=== PATIENT | male | born 1955 | race Caucasian/White ===

== ENCOUNTER 2025-02-22 15:24 | Inpatient (IN) | payer MEDICARE, OTHER, SELFPAY ==
[2025-02-22] VITALS (18 sets, daily range): BP systolic 141–176; BP diastolic 71–123; BMI 27.3
[2025-02-22] MEDS: ATIVAN 2 MG IV ×2 (11:17→11:34)
[2025-02-22] MEDS: NSS 1000 IV (11:19)
--- NOTE | 2025-02-22 11:36 | ED.GENMED ---
History of Present Illness
General
Chief Complaint: Alcohol Problem
Source: patient
Exam Limitations: none
Time Seen by Provider: 02/22/25 11:10
Nursing documentation reviewed up to this point in time: agreed with
History of Present Illness
History of Present Illness:
Patient with history of chronic alcoholism, presents to ED secondary to uncontrollable tremor, along with ongoing right-sided neck pain x 5 days, without trauma. Patient also reports 1 week history of dark stool. Denies dizziness or weakness.
Denies chest pain. Denies shortness of breath. Patient reports nausea sensation without vomiting. Denies diarrhea. Denies trauma. Denies loss of sensation or weakness or dizziness. Denies headache.
Review of Systems
Review of Systems
Allergies reviewed?: Yes
All Other Systems: ROS reviewed and negative except as documented in HPI and ROS
Constitutional: Reports no symptoms; Denies fever
Respiratory: Reports no symptoms
Cardiac: Reports no symptoms
ABD/GI: Reports nausea and other (Dark stool); Denies abdominal pain or vomiting
: Reports no symptoms
Musculoskeletal: Reports no symptoms
Skin: Reports no symptoms
Neurological: Reports other (Tremor)
Phy Exam
Physical Exam
Physical Exam:
Physical Exam
General: mild distress, not acutely ill. afebrile
Head: nc/at. eomi
Neck: supple. no meningeal signs.
Heart: tachycardic
Lungs: no acute respiratory distress. clear bilaterally
Abdomen: normal bowel sounds. not tender.
Neuro: alert and oriented x 3. no focal neurological deficits
Skin: no rash
Psychiatric: well kept. interactive and cooperative
Extremities: no edema. no calf tenderness.
Scores
Withdrawal Assessment of Alcohol
Withdrawal Assessment Completed?: Not applicable
Course
Orders/Labs/Results
Orders:
Orders
02/22/25 11:11
IV Insert/Care/Rem.- Treatment PRN
02/22/25 11:14
Lorazepam [Ativan] 2 mg .ROUTE .STK-MED ONE
Ondansetron Injectable [Zofran] 4 mg .ROUTE .STK-MED ONE
02/22/25 11:16
Electrocardiogram (*1) Urgent
Reason for Study: QTc Monitoring
EKG- Treatment ONCE
0.9% Sodium Chloride 1000 ml [Nss] 1,000 ml IV BOLUS
Lorazepam [Ativan] 2 mg IV NOW STA
02/22/25 11:21
Type+Screen Urgent
Alcohol Urgent
Complete Blood Count/With Diff Urgent
Comprehensive Metabolic Panel Urgent
Creatine Phosphokinase Urgent
Comment: ADD ON
Lipase Urgent
Magnesium Urgent
PTT Urgent
Prothrombin Time Urgent
02/22/25 11:33
Lorazepam [Ativan] 2 mg IV NOW STA
02/22/25 12:12
Magnesium Sulfate 1 G/D5w [Magnesium Sulfate] 1 gm in 100 ml IV NOW
02/22/25 12:26
diazePAM [Valium Injection] 2 mg IV NOW STA
02/22/25 12:27
CT Cervical Spine W/o Iv Contr Urgent
Comment:
Reason For Exam: trauma w right sided neck pain
CT Head W/o Iv Contrast Urgent
Comment:
Reason For Exam: mental status change
02/22/25 13:00
0.9% Sodium Chloride 1000 ml [Nss] 1,000 ml Mvi, Adult [Multivitamin] 10 ml Thiamine Injection 100 mg IV 100 mls/hr
02/22/25 14:41
ABO2 Urgent
BBK Wristband Number:
Associate notified that ABO2 has been ordered: YULIANA
Date: 02/22/25
Time: 11:30
Superannuation Funds Manager ID: [id number]
02/22/25 Dinner
Cholesterol Lowering
At Your Request: Limited Participation
Cholesterol Lowering: Sodium, 2 Gram
02/22/25 15:04
Oxycodone/Acetaminophen [Percocet 5/325] 1 tablet PO NOW STA
diazePAM [Valium Injection] 10 mg .ROUTE .STK-MED ONE
Hemetest Stools As Directed
02/22/25 15:06
Admit/Transfer Patient As Directed
Co-Sign Provider:
Level of Care: Inpatient admission
Assign to:: IMU- Intermediate Care
Physician / Group: Ariel Swift
Diagnosis: Acute ETOH WDS, mild acute ETOH hepatitis, Hypomagnesemia
Reason for Hospitalization: Acute ETOH WDS, mild acute ETOH hepatitis, Hypomagnesemia
Expected length of stay greater than two midnights?: Yes
ELOS- Estimated Length of Stay in days: 3
I certify the patient meets the requirements for IP care: Yes
diazePAM [Valium Injection] 2 mg IV NOW STA
PRN Pain Medication Management As Directed
May give lesser potent ordered pain med per pt: Yes
preference::
Protocol:: Medication orders for pain may be administered in a
manner that supports deferring to patient preference
when the pt is:
- Requesting an ordered lesser potent pain medication.
Least to most potent pain medications are defined
as: acetaminophen < NSAID < tramadol < opioids
(morphine, oxycodone, hydromorphone).
- Requesting a lesser dose of the same medication IF
ORDERED.
- Requesting a less intrusive route of administration
if both routes are prescribed by the provider (PO <
IV).
02/22/25 15:08
Code Status As Directed
Resuscitation Status: Full Code
02/22/25 17:09
0.9% Sodium Chloride [Nss (Preservative Free)] See Protocol IV PRN PRN
Acetaminophen [Tylenol] 650 mg PO Q4HPRN PRN
FOLic ACID [Folvite] 1 mg 0.9% Sodium Chloride 50 ml [Nss] 50 ml IV DAILYPRN
Heparin 5,000 units SC Q8
Lorazepam [Ativan] 1 mg PO Q2HPRN PRN
Lorazepam [Ativan] 2 mg IV Q1HPRN PRN
Phenobarbital Sodium [Phenobarbital] 260 mg 0.9% Sodium Chloride 100 ml [Nss] 100 ml IV NOW
Thiamine Injection 200 mg IV Q8
02/22/25 17:09
Case Management Consult Once
Case Management Consult: Other
Comment: Substance abuse counseling
DIETARY IP CONSULT Routine
Reason for Consult: Nutrition support, possible refeeding guidelines
Activity As Directed
Activity Level: As Tolerated
Intake/ Output As Directed
Frequency: Per unit guidelines
MSAS SCORE As Directed
MSAS Score 0-4: Repeat MSAS every 2 hours until 0-4 for three consecutive assessments, then every 4 hours x 48
hours.
MSAS Score 5-7: For MILD withdrawl symptoms. Repeat MSAS and RASS every 2 hours
MSAS Score 8-11: For MODERATE withdrawal symptoms. Repeat MSAS and RASS every 1 hour. Consider ICU or IMU
level of care.
MSAS Score > 11: For SEVERE withdrawal symptoms. Repeat MSAS and RASS every 1 hour. Notify provider, consider
ICU level of care.
MSAS Additional Instructions: If no improvement or no decrease in score from severe to moderate within 12
hours, consult psychiatry
MSAS Notify Provider: Notify provider if patient requires more than 10 mg of Lorazepam in eight hour period.
Precautions As Directed
Type of Precautions: Other
Comment: fall
Vital Signs As Directed
Frequency: Per unit guidelines
Weight As Directed
Frequency: Once
Comment: on admission
DX Deep Vein Thrombosis Video Routine
02/22/25 17:14
Lorazepam [Ativan] 1 mg PO Q1HPRN PRN
02/22/25 17:42
B-Hydroxybutyrate Urgent
GGTP Urgent
Phosphorus Urgent
02/22/25 18:00
Allopurinol [Zyloprim] 200 mg PO QPM
02/22/25 20:19
Urinalysis Routine
Date Specimen was Collected: 02/22/25
Time Specimen was Collected: 20:12
Urine Drug Abuse Screen Routine
Date Specimen was Collected: 02/22/25
Time Specimen was Collected: 20:12
02/22/25 22:00
Docusate Sodium [Colace] 300 mg PO HS
Phenobarbital Sodium [Phenobarbital] 97.5 mg IV TID
02/23/25 03:14
Complete Blood Count/With Diff IN AM
Comprehensive Metabolic Panel IN AM
Ferritin IN AM
Iron IN AM
Magnesium IN AM
Total Iron Binding IN AM
Vitamin B12 IN AM
02/23/25 06:00
Levothyroxine [Synthroid] 25 mcg PO DAILY@0600
02/23/25 08:00
Atorvastatin [Lipitor] 20 mg PO DAILY
FOLic ACID [Folvite] 1 mg PO DAILY
Lisinopril [Zestril] 10 mg PO DAILY
magnesium oxide 400 mg PO DAILY
02/24/25 22:00
Phenobarbital [Luminal] 64.8 mg PO TID
02/25/25 20:00
Thiamine HCl [Vitamin B1] 100 mg PO BID
02/26/25 22:00
Phenobarbital [Luminal] 32.4 mg PO TID
Abnormal Lab Results
02/22/25
11:21
RBC 6.58 H 10^6/uL
(4.70-6.10)
MCV 64.6 L fL
(80.0-94.0)
MCH 19.8 L pg
(27.0-31.0)
MCHC 30.6 L g/dL
(33.0-37.0)
RDW 18.5 H %
(11.5-14.5)
Sodium 148 H mmol/L
(135-145)
Chloride 112 H mmol/L
(98-107)
Carbon Dioxide 21 L mmol/L
(22-30)
BUN 6 L mg/dl
(9-20)
Glucose 160 H mg/dl
(70-99)
Magnesium 1.3 L mg/dl
(1.6-2.3)
AST 84 H U/L
(17-59)
Alkaline Phosphatase 135 H U/L
(38-126)
02/22/25 11:21
02/22/25 11:21
Vital Signs
Initial and Last Documented VS:
Initial Vital Signs
Temp Pulse Resp BP Pulse Ox
98.0 F 128 18 171/110 98
02/22/25 10:39 02/22/25 10:39 02/22/25 10:39 02/22/25 10:39 02/22/25 10:39
Last Documented Vital Signs
Temp Pulse Resp BP Pulse Ox
97.5 F 87 24 168/90 97
02/23/25 03:09 02/23/25 11:43 02/23/25 11:43 02/23/25 11:19 02/23/25 11:43
MDM/Problems Addressed
MDM/Problems Addressed:
Patient evaluated immediately upon arrival secondary to unstable vital signs along with tremor. Patient given IV fluids along with Ativan, with mild improvement. Patient will be admitted for further evaluation and treatment.
*Pulse Oximetry
SaO2: 98
Oxygen Mode of Delivery: Room air
Patient hypoxic: no
*Critical Care Note
Total Time (30-74mins, 75-104mins- exclusive of procedures): Not Applicable
ED Attending Note
-
Portions of this chart may have been created with voice recognition software.� Occasional wrong word or��sound alike� substitutions may have occurred due to the inherent limitations of voice recognition software.
Discharge Plan
Departure
Patient Disposition: Admit
Date of Disposition: 02/22/25
Time of Disposition: 14:25
Admit to: IMU
Presentation/result/management discussed w/ accepting MD/DO: Hospitalist
Discharge Problem:
Alcohol withdrawal
Interventions
Interventions:
*Risk Screen - Suicide Last Done: 02/22/25 10:39
*General Assessment Last Done: 02/22/25 10:39
*Neglect/Abuse Screening Last Done: 02/22/25 10:39
*ED- Fall Risk Assessment Last Done: 02/22/25 16:01
*ED COVID-19 Vaccine History Last Done: 02/22/25 16:01
*Nursing Disposition Last Done: 02/22/25 17:10
QI-Mauvkw-Qtnrudacbb Assessment Last Done: 02/22/25 11:23
ED- Cardiac Assessment Last Done: 02/22/25 11:23
ED- Neurological Assessment Last Done: 02/22/25 11:23
ED-Psychological Assessment Last Done: 02/22/25 11:23
ED- Pulmonary Assessment Last Done: 02/22/25 11:23
Discharge Date and Time
Discharge Date/Time: 02/22/25 17:20
[2025-02-22 11:38] LABS: INR 1.07; PT 14.2 Sec (11.4-14.6)
[2025-02-22 11:39] LABS: APTT 29.4 Sec (23.4-35.0)
[2025-02-22 11:45] LABS: Hematocrit 42.5 % (39.0-52.0); Hemoglobin 13.0 g/dL (13.0-18.0); Mean Corp Hgb Conc. 30.6 g/dL (33.0-37.0); Mean Corpuscular Volume 64.6 fL (80.0-94.0); Nucleated Red Blood Cells % 0 % (-); Platelet Count 214 10^3/uL (130-400); Red Cell Dist. Width 18.5 % (11.5-14.5)
[2025-02-22 11:51] LABS: ALT (SGPT) 49 U/L (0-50); AST (SGOT) 84 U/L (17-59); Albumin 4.4 g/dl (3.5-5.0); Alkaline Phosphatase 135 U/L (38-126); Blood Urea Nitrogen 6 mg/dl (9-20); Calcium 8.9 mg/dl (8.4-10.2); Carbon Dioxide 21 mmol/L (22-30); Chloride 112 mmol/L (98-107); Estimated Creatinine Clearance 94 ml/min; Glucose 160 mg/dl (70-99); Lipase 76 U/L (23-300); Magnesium 1.3 mg/dl (1.6-2.3); Potassium 3.7 mmol/L (3.5-5.1); Sodium 148 mmol/L (135-145); Total Protein 7.6 g/dl (6.3-8.2); eGFR > 60.00
[2025-02-22] MEDS: MAGNESIUM SULFATE 100 IV (12:30)
[2025-02-22] MEDS: VALIUM INJECTION 2 MG IV ×2 (12:31→15:07)
[2025-02-22] MEDS: MULTIVITAMIN 1011 MG IV (13:39)
[2025-02-22] MEDS: MULTIVITAMIN 1011 ML IV (13:39)
--- NOTE | 2025-02-22 14:25 | W.PN.UPDATE ---
Update Note
Progress Note Update
This note serves as an addendum to the H&P by dietary server RODGER Bell Rosado
HPI
69 M chronic alcoholism, presents to ED
- pw o uncontrollable tremor, along with ongoing right-sided neck pain x 5 days, without trauma.
- reports 1 week history of dark stool.
- Denies dizziness or weakness.
Denies chest pain. Denies shortness of breath. P
- reports nausea sensation without vomiting.
- Denies diarrhea. Denies trauma.
- Denies loss of sensation or weakness or dizziness. Denies headache.
Denied porir HC Sz
Reviewed VS:
SelRelevant VS:
02/22/25
10:39 02/22/25
11:15
Temp 98.0 F
Pulse 128 119
Blood pressure 171/110
SaO2 98
Oxygen Mode of Delivery Room air
PE
Gen: in mild distress, tremulous , decreased attention span, slow cognitive speed
HEENT: anicteric
Neck: supple
Lungs: CTA
Cor: tachycardic
Abdomen: soft benign
ART FRAMING MANAGER: alert and oriented x 3. no focal neurological deficits, tremulous
MS: no edma , no tremors
Psych: . interactive and cooperative
Relevant Data
Relevant Data
02/22/25
11:21
WBC 7.4
Hgb 13.0
MCV 64.6 L
Plt Count 214
INR 1.07
Sodium 148 H
Chloride 112 H
Carbon Dioxide 21 L
BUN 6 L
eGFR > 60.00
Glucose 160 H
Magnesium 1.3 L
AST 84 H
ALT 49
ASSESSMENT & PLAN
Acute ETOH WDS concerning for evolving DTS
POS acute autonomic hyperarousal signs ( ST, Hypertensive, tremulous , decreased attention span, slow cognitive speed)
No prior HX Sz
- Hi risk for DTs - to start on PHB protocol
- fall precaution , Sz precaution
Associated mild acute ETOH hepatitis with reversed AST and ALT ratio
- cessation of ETOH
- trend LFts
Hypomagnesemia of chr ETOH use disorder
- s/p IV Mg 1 gm
- f/u Mg in AM
Dark stool
Microcytosis
- check Ferritin
- check HoB stool
DVT Px: SQH
Full Code:
IMU
--- NOTE | 2025-02-22 14:26 | HPS.HSE ---
Family Physician
-
Family Physician:
Chief Complaint
-
neck pain
History of Present Illness
Patient is a 69-year-old male with past medical history significant for chronic alcohol dependency, hypertension, hyperlipidemia, gout, CAD, hypothyroid and Hx prostate cancer who presented to [facility] ED for evaluation of neck pain. Patient states the
pain in his neck has been intractable for 5 days and he could not bare it anymore. He reports similar to pain in the past where he ended up needing a discectomy. He also reports that he gets 'so hammered at night,' sometimes he forgets if he takes
medications or not. He denies any falls but may not be aware if he has fallen. Patient reports drinking a half gallon of premixed cocktails per day, will drink cocktails like [place] ice tea or margaritas. Last drink yesterday 02/21/2025 in the
evening.
Medical History
Past Medical History
Past Medical History: Reports Other
Additional Past Medical History:
alcohol dependency
hypertension
hyperlipidemia
gout
CAD
hypothyroid
Hx prostate cancer
Past Surgical History: Reports Other
Additional Past Surgical History:
cardiac stent x2
prostatectomy
discectomy
Left knee surgery
Social History
Tobacco: Vaping (utilizes vape all day long )
Alcohol: Daily (drinks a 5th (or half gallon) of premixed cocktail daily (i.e. premixed [place] ice tea))
Drug: None
Living: With Family (with sister )
Employment: Retired
Family History
Family History: Unable to Obtain
Allergies / Home Medications
Allergies reflects when Allergies were last updated in [facility].
Home Medications with original date entered in [facility]
Allergy/Medication List:
Allergies
Allergy/AdvReac Type Severity Reaction Status Date / Time
No Known Allergies Allergy Unverified 02/22/25 10:39
Home Medications
allopurinol 100 mg tablet 200 mg PO QPM 02/22/25
atorvastatin 20 mg tablet (Lipitor) 20 mg PO DAILY 02/22/25
cholecalciferol (vitamin D3) 25 mcg (1,000 unit) tablet (Vitamin D3) 25 mcg PO DAILY 02/22/25
docusate sodium 100 mg capsule (Colace) 300 mg PO HS 02/22/25
folic acid 800 mcg tablet 0.8 mg PO DAILY 02/22/25
levothyroxine 25 mcg tablet (Synthroid) 25 mcg PO DAILY 02/22/25
lisinopril 10 mg tablet 10 mg PO DAILY 02/22/25
magnesium oxide 400 mg PO DAILY 02/22/25
metoprolol succinate 100 mg tablet,extended release 24 hr (Toprol XL) 100 mg PO DAILY 02/22/25
quetiapine 50 mg tablet (Seroquel) 50 mg PO HS 02/22/25
selenium 50 mcg tablet 50 mcg PO DAILY 02/22/25
verapamil 180 mg tablet,extended release 180 mg PO DAILY 02/22/25
Review of Systems
-
History Source: Patient
Musculoskeletal: Reports Other (severe neck pain )
Neurological: Reports Other (tremors )
Physical Exam
Vital Signs
Vital Signs
Temp Pulse Resp BP Pulse Ox
98.0 F 116 32 150/98 98
02/22/25 10:39 02/22/25 11:45 02/22/25 11:45 02/22/25 11:19 02/22/25 11:45
Physical Exam
General: Well Developed, Well Nourished, Sweats and Obese
HEENT: NormoCephalic, Moist mucous membranes, Atraumatic, Nose Appears Normal and Ears Appear Normal
Respiratory: Clear
Cardiac: S1/S2, Regular Rhythm and Tachycardia
Breast: Deferred by me
GI: Soft, Non Tender, Non Distended and Normal Bowel Sounds; No Organomegaly
Rectal: Deferred by Provider
Genito-urinary: Deferred by me
Musculoskeletal: No Clubbing, No Cyanosis and No Edema
Skin: IV/Catheter Site
Neuro: Awake, Alert, Nonfocal/grossly intact and Tremors
Psych: Anxious
Laboratory Results
-
02/22/25 11:21
02/22/25 11:21
Laboratory Results
PT 14.2 Sec (11.4-14.6) 02/22/25 11:21
INR 1.07 02/22/25 11:21
APTT 29.4 Sec (23.4-35.0) 02/22/25 11:21
Total Bilirubin 1.1 mg/dl (0.2-1.3) 02/22/25 11:21
AST 84 U/L (17-59) H 02/22/25 11:21
ALT 49 U/L (0-50) 02/22/25 11:21
Alkaline Phosphatase 135 U/L (38-126) H 02/22/25 11:21
Lipase 76 U/L (23-300) 02/22/25 11:21
Data Reviewed
-
CT Scan: Report Reviewed by me (C-spine: 1. 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
NARROWING. 2. Severe chronic discogenic degenerative disease and left-sided facet joint ar) and Other (Head: 1. Mild diffuse cerebral and cerebellar volume loss. 2. Mild periventricular white matter leukoaraiosis.)
Medical Tests (Nuc Med, Echo, EKG etc): Report Reviewed by me (EKG: SINUS TACHYCARDIA RIGHT BUNDLE BRANCH BLOCK LEFT POSTERIOR FASCICULAR BLOCK BIFASCICULAR BLOCK )
Lab Data: Labs Reviewed by me (Na+ 148, Mag 1.3, AST 84, ALT 49, Alk Phos 135)
Impression/Plan
-
IMPRESSION/PLAN:
#alcohol withdraw
#alcohol dependency
#hypernatremia
#hypomagnesemia
#mild acute ETOH hepatitis
Na+ 148, Mag 1.3, AST 84, ALT 49, Alk Phos 135
EKG: SINUS TACHYCARDIA
RIGHT BUNDLE BRANCH BLOCK
LEFT POSTERIOR FASCICULAR BLOCK
BIFASCICULAR BLOCK
Head CT: 1. Mild diffuse cerebral and cerebellar volume loss.
2. Mild periventricular white matter leukoaraiosis.
C-Spine CT: 1. 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
SEVERE RIGHT NEURAL FORAMINAL NARROWING.
2. Severe chronic discogenic degenerative disease and left-sided facet joint arthrosis at C4/C5.
3. 4 mm anterolisthesis of C3 on C4 secondary to severe bilateral facet joint arthrosis. SEVERE RIGHT NEURAL FORAMINAL NARROWING at C3/C4.
4. Previous anterior discectomy and fusion at C6/C7.
- Admit to IMU
- MSAS protocol
- phenobarbital taper
- B-Cares consult
- Case management consult
- educate on ETOH cessation
- trend LFTs
- replete electrolytes as indicated
- trend lytes
#neck pain
C-Spine CT: 1. 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
SEVERE RIGHT NEURAL FORAMINAL NARROWING.
2. Severe chronic discogenic degenerative disease and left-sided facet joint arthrosis at C4/C5.
3. 4 mm anterolisthesis of C3 on C4 secondary to severe bilateral facet joint arthrosis. SEVERE RIGHT NEURAL FORAMINAL NARROWING at C3/C4.
4. Previous anterior discectomy and fusion at C6/C7.
- will need follow up out patient
- pain regimen
#hypertension
patient reports use of metoprolol and verapamil no recent pharmacy fills and recent hospital d/c papers note to stop medication
- continue lisinopril
- monitor need for additional noted medications
#CAD
#hyperlipidemia
s/p cardiac stent x2
- continue atorvastatin
#gout
- continue allopurinol
#hypomagnesemia
- continue magnesium oxide
#hypothyroid
- continue levothyroxine
#Hx prostate cancer
s/p prostatectomy and radiation
Code status: full code
DVT prophylaxis: heparin sq
--- NOTE | 2025-02-22 14:53 | CM ---
Patient seen at bedside in ED. Patient stated that he lives with his sister. Patient lives in a 2 story home with 12 steps to bedroom. Patient PCP is Dr. Rufus Ceja - aged 89 and per patient he is still practicing. Patient stated that he uses
the [facility] in [place] and that he is not working or driving at this time. Patient wanted to talk to [facility] about alcohol treatment but did agree to talk to [facility]. Patient is for admission to at this time per physician. CM will
continue to follow for discharge planning needs.
Plan; [facility] to assess pending medical treatment plan
[2025-02-22] MEDS: PERCOCET 5/325 1 TABLET PO (15:13)
[2025-02-22] MEDS: THIAMINE INJECTION 200 MG IV ×2 (17:27→23:26)
[2025-02-22] MEDS: HEPARIN 5000 UNITS SC ×2 (17:27→23:26)
[2025-02-22] MEDS: ZYLOPRIM 200 MG PO (17:27)
[2025-02-22] MEDS: ATIVAN 1 MG PO ×3 (17:28→23:26)
[2025-02-22] MEDS: PHENOBARBITAL 104 MG IV (17:46)
--- NOTE | 2025-02-22 17:55 | PTCARENOTE ---
Patient arrived to IMU from ED. AOx3. Patient very anxious and has B/L hand tremors. MSAS completed per order and PO ativan given per MSAS score of 5. NSR with first degree and BBB on monitor. On RA with SpO2 greater than 92%. IVF running per order.
Bed alarm on and audible. Call kapoor within reach, bed in lowest position, and bed of wheels locked.
[2025-02-22 18:23] LABS: GGTP 96 U/L (15-73)
[2025-02-22] MEDS: NICODERM TRANSDERMAL 21 MG TRANSDERM (18:27)
[2025-02-22 20:31] LABS: Urine Character Clear (Clear)
[2025-02-22 20:36] LABS: Urine Squamous Cell 0-2 /LPF (Few)
[2025-02-22 20:37] LABS: Urine Red Blood Cell 0-2 /HPF (0-2)
[2025-02-22] MEDS: REMOVE NICOTINE PATCH 1 PATCH REMOVE (21:06)
[2025-02-22] MEDS: PHENOBARBITAL 97.5 MG IV (21:07)
[2025-02-22] MEDS: COLACE 300 MG PO (21:07)
--- NOTE | 2025-02-22 23:07 | PTCARENOTE ---
Assumed care of pt from daysarft GUADALUPE. inessaox3. NSR with BBB and first degree on monitor. 98% on RA. MSAS ongoing (see worklist) and pt medicated per protocol (see MAR). Vital signs and assessment as documented. Pt currently sleeping in bed with call
kapoor in reach and bed alarm on.
[2025-02-23] VITALS (19 sets, daily range): BP systolic 142–184; BP diastolic 74–130
[2025-02-23] MEDS: NSS 1000 IV ×3 (00:11→13:50)
[2025-02-23] MEDS: NSS (PRESERVATIVE FREE) 1 ML IV ×2 (00:12→03:00)
[2025-02-23] MEDS: ATIVAN 2 MG IV ×2 (00:12→03:00)
[2025-02-23] MEDS: ZOFRAN 4 MG IV (03:51)
[2025-02-23 04:02] LABS: Hematocrit 33.6 % (39.0-52.0); Hemoglobin 10.6 g/dL (13.0-18.0); Mean Corp Hgb Conc. 31.5 g/dL (33.0-37.0); Mean Corpuscular Volume 63.4 fL (80.0-94.0); Nucleated Red Blood Cells % 0.5 % (-); Platelet Count 171 10^3/uL (130-400); Red Cell Dist. Width 17.0 % (11.5-14.5)
[2025-02-23 04:08] LABS: ALT (SGPT) 36 U/L (0-50); AST (SGOT) 55 U/L (17-59); Albumin 3.6 g/dl (3.5-5.0); Alkaline Phosphatase 118 U/L (38-126); Blood Urea Nitrogen 10 mg/dl (9-20); Calcium 8.1 mg/dl (8.4-10.2); Carbon Dioxide 21 mmol/L (22-30); Chloride 113 mmol/L (98-107); Estimated Creatinine Clearance > 125 ml/min; Glucose 82 mg/dl (70-99); Iron 312 ug/dl (49-181); Magnesium 1.4 mg/dl (1.6-2.3); Potassium 3.9 mmol/L (3.5-5.1); Sodium 141 mmol/L (135-145); Total Protein 6.4 g/dl (6.3-8.2); eGFR > 60.00
[2025-02-23 04:20] LABS: Total Iron Binding Capacity 311 ug/dl (261-462)
[2025-02-23 04:41] LABS: Ferritin 45.9 ng/ml (17.9-464.0)
[2025-02-23 04:56] LABS: Vitamin B12 411 pg/ml (239-931)
[2025-02-23] MEDS: MAGNESIUM SULFATE 102 GRAMS IV (05:23)
[2025-02-23] MEDS: SYNTHROID 25 MCG PO (05:24)
[2025-02-23] MEDS: ATIVAN 1 MG PO ×3 (05:31→23:32)
--- NOTE | 2025-02-23 05:46 | PTCARENOTE ---
Pt c/o nausea. FRANCO Junior notified and Rx received for Zofran (see MAR). Pt's morning Mg 1.4 and FRANCO made aware, Mg rider currently infusing (see MAR).
[2025-02-23] MEDS: PERCOCET 5/325 1 TABLET PO (06:35)
--- NOTE | 2025-02-23 06:44 | PTCARENOTE ---
Pt c/o 04/12 pain in his neck. Notified FRANCO Junior and received one time Rx for Percocet (see MAR).
[2025-02-23] MEDS: PHENOBARBITAL 97.5 MG IV ×3 (07:46→21:01)
[2025-02-23] MEDS: LIPITOR 20 MG PO (07:46)
[2025-02-23] MEDS: FOLVITE 1 MG PO (07:47)
[2025-02-23] MEDS: HEPARIN 5000 UNITS SC ×3 (07:49→23:32)
[2025-02-23] MEDS: ZESTRIL 10 MG PO (07:52)
[2025-02-23] MEDS: MAG-TAB SR 84 MG PO (07:52)
[2025-02-23] MEDS: THIAMINE INJECTION 200 MG IV ×3 (07:53→23:32)
[2025-02-23] MEDS: NICODERM TRANSDERMAL 21 MG TRANSDERM (08:23)
--- NOTE | 2025-02-23 09:13 | W.PN.HOSP.TC ---
Today's Communication/Plan
-
PPI
Antiemetics
Follow H&H closely
Repeat heme test stools
GI consult
Chest x-ray, on as needed nebulizers
Pain medication for the neck pain
Continued alcohol withdrawal protocol
Assessment / Plan
Assessment / Plan
#Nausea with black stools
Rule out GI bleed
Patient with ongoing alcohol abuse which increases the risk of bleeding
Heme negative x 1 but has got microcytosis. His iron studies are difficult to interpret because he is got hemochromatosis and gets phlebotomy.
With a drop in H&H I would evaluate for GI bleed. Consult GI.
Continue with PPI and antiemetics. Follow H&H closely
#Neck pain
Severe in nature
No radiculopathy
History of prior cervical disc's disease and surgery
Patient had fall a week ago
CT cervical spine shows severe DJD at C5-C6 with osteophyte causing moderate spinal compression and moderate central canal stenosis and severe right neural foraminal narrowing at C5/C6 and C3/C4 prior anterior discectomy and fusion at C6/C7 noted
Continue with the pain regimen and consider Ortho input/epidural injections for intractable pain.
#Alcohol use disorder
No prior history of alcohol withdrawal
Currently without hallucinations. No overt sympathetic activity-hyperarousal, sweating and tachycardia. Elevated blood pressure as his current known history of hypertension
His tremors to me sound more benign essential tremor rather than withdrawal.
Continue with alcohol withdrawal protocol including phenobarbital as the risk for seizures is high
Patient is amenable for alcohol withdrawal resources. Case management to involve B cares.
#Tremors-worse when he is tries to reach out for things or grab things. Noted on an outstretched hands against when they are held at the gravity. No neck tremor or lower extremity tremors. Admitting CT head shows no evidence of acute intracranial
finding
#Active wheezing-without short of breath or cough. Patient is an ex-smoker but currently actively vapes. Does not use inhalers at home. Uses as needed nebulizers. Obtain a chest x-ray. He has a history of pneumonia 2 months ago and was supposed
to get a follow-up chest imaging
#Hypertension-continue the home medication and follow
#Hemochromatosis-ferritin is at 45 and percent saturation is very high at 100%. Patient to follow-up with primary combat information center officer
#CAD status post prior coronary stenting-continue with his aspirin and statins
#Hypothyroidism-continue Synthroid
Full code
Total time spent on today's encounter was 52 minutes which included time spent in counseling the patient/family regarding diagnosis and treatment plan as listed above, goals of care, and symptom management. Case was discussed with nursing staff,
specialists, and care coordinators/case management. All labs and imaging personally reviewed by me. Remainder the time spent in detailed review of previous records, lab data, imaging, and other medical provider documentation.
Anticipated Discharge: > 48 hours
Subjective/Interval History
-
Date of Service: February 23, 2025
Today's complaint is constant right-sided posterior neck pain.
In the past he had a cervical discectomy and surgery.
A week ago he found himself on the floor and he does not know how it happened.
He does drink 1/5 of vodka or similar spirits every day. He says last drink was yesterday.
He says if he does not have alcohol by 5 PM he will start to get shakes and tremors. No prior history of alcohol withdrawal seizures. Longstanding alcohol use.
The neck pain is localized with no radiation to the arms.
His other complaint was shaking/tremors. He says his onset of tremor is almost more than a year. It is worse if he tries to reach for something. Denies any balance issues. When he drinks alcohol is tremors get better. Denies ever diagnosed with
benign essential tremors. Denies any strokes.
His other complaint is nausea with no abdominal pain or vomiting but has been noticing dark stools for a week. Denies prior history of gastritis or peptic ulcer disease. Denies prior history of liver disease.
All his doctors are at [facility] [place] and he does not want to go there because he says the care is poor. His PCP is getting retired next week he sees a pollution control engineer for stents in the heart. He sees a combat information center officer for hemochromatosis. He sees
his urologist for prostate cancer.
Objective Data
-
Labs:
Laboratory Results
02/23/25
03:14
WBC 4.2 L
Hgb 10.6 L
Hct 33.6 L
Plt Count 171 D
Sodium 141
Potassium 3.9
Chloride 113 H
Carbon Dioxide 21 L
BUN 10
Creatinine 0.6 L
Glucose 82
Calcium 8.1 L
Total Bilirubin 1.9 H
AST 55
ALT 36
Alkaline Phosphatase 118
Vital Signs:
Vital Signs
Temp Pulse Resp BP Pulse Ox
97.5 F 71 16 157/100 98
02/23/25 03:09 02/23/25 08:00 02/23/25 08:00 02/23/25 08:00 02/23/25 08:14
I&O
02/22/25 02/23/25 02/24/25
06:59 06:59 06:59
Intake Total 2744 / 2744
Output Total 200 / 200
Balance 2544 / 2544
Physical Exam
-
General: Comfortable
HEENT: Moist Mucous Membranes
Respiratory: Wheezes and Non Labored Respirations; Negative Accessory Resp Muscle Use
Cardiac: Regular Rhythm and S1/S2; Negative Tachycardic
GI: Soft and Nontender
Neuro: AO x 3, No Motor Deficits and Tremors (Intention)
Psych: Calm; Negative Confused
Data Reviewed
-
Labs: Labs Reviewed by me
[2025-02-23] MEDS: NSS (PRESERVATIVE FREE) 10 ML IV ×2 (09:52→21:01)
[2025-02-23] MEDS: ROXICODONE 5 MG PO ×4 (09:52→23:36)
[2025-02-23] MEDS: PROTONIX IV 40 MG IV ×2 (09:52→21:01)
[2025-02-23 10:22] LABS: Hematocrit 38.4 % (39.0-52.0); Hemoglobin 12.0 g/dL (13.0-18.0)
--- NOTE | 2025-02-23 10:38 | CM ---
Received consults for substance abuse counselling.
Spoke with Bernadette at [facility]- [facility]round [facility] Pt medicated for nausea vomitting.
Medicated for pain with for neck pain .
Maintained on withdrawal precaution.
Ativan prn.
GI consulted .
PLAN On going with [facility]
[2025-02-23] MEDS: TOPROL XL 100 MG PO (11:19)
[2025-02-23] MEDS: DUONEB 3 ML INH (11:49)
--- NOTE | 2025-02-23 12:59 | CON.GI ---
Addendum entered and electronically signed by Roger Lincoln MD 02/23/25 14:00:
I saw and examined the patient.
The ASSISTANT COMMUNITY DIRECTOR's note was reviewed and I agree with the note.
Impression:
History of dark stools at home . FOBT x 2 negative . repeat Hb 12
ETOH abuse (1/5 of vodka or rum daily up to half gallon daily)
Neck pain
History of hemochromatosis, follows with [facility]
History of ulcerative colitis
-->diagnosed at age 13, on medication (unsure what it was) up until the age of his mid 30s. Was told it was 'burned out'.
--> Last colonoscopy 5 years ago with [facility], follows with them routinely.
--> Hemorrhoidectomy with [facility]
plan
No acute GI intervention
Recommend follow-up with his outpatient GI on discharge
Advised on alcohol abstinence
continue PPI
Also advised on follow-up with hematology for hemochromatosis
No further recommendation. Will sign off. Please call us back if any questions
Original Note:
Consultation
-
Date/Time Consultation Requested: 02/23/25 0928
Date/Time Consultation Performed: 02/23/25 1230
Requesting Provider: Dr. Macedo
Performing Provider: Dr. Lincoln/FRANCO Smith
Reason for Consultation: eval for GI bleed
Medical History
Chief Complaint / HPI
Chief Complaint: tremor and right sided neck pain
History of Present Illness:
69-year-old male with past medical history of chronic alcohol abuse (1/5 of vodka or rum a day last use 6 PM 02/21/2025), hypertension, hyperlipidemia, gout, CAD, hypothyroidism, per patient recent admission September and November for pneumonia,
hemochromatosis, prostate cancer status post prostatectomy and radiation, history of ulcerative colitis (diagnosed at the age of 13 and was on medications to his 30s (states this is 'burned out', followed by [facility] with last colonoscopy
approximately 5 years ago and hemorrhoidectomy with colorectal surgery at [facility]) who presents to the emergency room yesterday with neck pain for 5 days. The patient also reports having dark stools. We are asked to evaluate for his
history of dark stools and to rule out GI bleed. At the present time the patient is having green stools. He is OB negative x 2. He states that last week he was having darker stools. He denies any use of iron or Pepto-Bismol. He denies any
heartburn, reflux. He does have some dry heaves while here. He did have an episode of vomiting at home last week. He denies any hematemesis or coffee grounds. He denies any abdominal pain. He denies any nausea, vomiting, hematochezia, dysphagia
or odynophagia. No early satiety or unintended weight loss. He usually follows with [facility]. He states that he was getting phlebotomy every couple weeks however he was hospitalized for 'pneumonia'. In the winter/spring. He has not
had phlebotomy since approximately . The patient vapes. He continuously drinks alcohol. He has no known history of peptic ulcer disease that he is aware of. He does not take any PPI, H2 deon or Tums. He denies any aspirin,
ibuprofen, Motrin or NSAID use. He does use allopurinol for gout. He states he uses Oxycodone for his neck pain. He has an uncle who has a history of prostate cancer. He denies any family history of gastrointestinal malignancy or IBD other than
himself. States he has a history of ulcerative colitis diagnosed at the age of 13 was on medications does not recall which until the age of mid 30s. Was then told his ulcerative colitis was 'burned-out'. No longer required medications. Bowel
movements are usually normal. Had hemorrhoids. Was sent to [facility] for hemorrhoidectomy. Has a history of prostate cancer status post prostatectomy and radiation. Patient was never told that he had radiation proctitis and has
never required treatment for such.
Past Medical History
Past Medical History: Other (Chronic alcohol abuse, hypertension, hyperlipidemia, gout, CAD, hypothyroidism, 'UC, burned out', prostate cancer, hemochromatosis, pneumonia)
Past Surgical History: Other (Prostatectomy, cardiac stents, discectomy, left knee surgery)
Social History
Tobacco: Vaping
Alcohol: Daily (Drinks at least fifth of vodka/rum or up to half gallon of hard liquor daily)
Drug: None
Personal: Single
Living: With Family
Employment: Retired
Family History
Family History: Other (Uncle with history of pancreatic cancer, no family history of colon cancer or gastric cancer, no other family history of IBD)
Allergies / Home Medications
Allergy/AdvReac Type Severity Reaction Status Date / Time
No Known Allergies Allergy Unverified 02/22/25 10:39
�Medication �Instructions �Recorded
allopurinol 100 mg tablet 200 mg PO QPM Gout 02/22/25
atorvastatin 20 mg tablet (Lipitor) 20 mg PO DAILY High Cholesterol 02/22/25
cholecalciferol (vitamin D3) 25 25 mcg PO DAILY Supplement 02/22/25
mcg (1,000 unit) tablet (Vitamin
D3)
docusate sodium 100 mg capsule 300 mg PO HS Constipation 02/22/25
(Colace)
folic acid 800 mcg tablet 0.8 mg PO DAILY Supplement 02/22/25
levothyroxine 25 mcg tablet 25 mcg PO DAILY Thyroid 02/22/25
(Synthroid)
lisinopril 10 mg tablet 10 mg PO DAILY Blood Pressure 02/22/25
magnesium oxide 400 mg PO DAILY Supplement 02/22/25
metoprolol succinate 100 mg 100 mg PO DAILY 02/22/25
tablet,extended release 24 hr
(Toprol XL)
quetiapine 50 mg tablet (Seroquel) 50 mg PO HS Mental Health/Anxiety 02/22/25
selenium 50 mcg tablet 50 mcg PO DAILY Supplement 02/22/25
verapamil 180 mg tablet,extended 180 mg PO DAILY 02/22/25
release
selenium 200 mcg tablet 200 mcg PO DAILY 02/23/25
Review of Systems
-
All other systems: A 12 pt ROS was Negative except as stated above in HPI
Vital Signs
Temp Pulse Resp BP Pulse Ox
97.5 F 87 24 168/90 97
02/23/25 03:09 02/23/25 11:43 02/23/25 11:43 02/23/25 11:19 02/23/25 11:43
Physical Exam
Exam
General: Other (Tremulous)
HEENT: Anicteric
Respiratory: Clear
Cardiac: Regular Rhythm
GI: Soft, Non Tender, Non Distended and Normal Bowel Sounds
Skin: Warm and Dry
Neuro: AO x 3
Psych: Calm
Results
WBC 4.2 10^3/uL (4.8-10.8) L 02/23/25 03:14
Hgb 12.0 g/dL (13.0-18.0) L 02/23/25 10:08
Hct 38.4 % (39.0-52.0) L 02/23/25 10:08
MCV 63.4 fL (80.0-94.0) L 02/23/25 03:14
Plt Count 171 10^3/uL (130-400) D 02/23/25 03:14
Absolute Neuts (auto) 2.4 10^3/uL (1.4-6.5) 02/23/25 03:14
PT 14.2 Sec (11.4-14.6) 02/22/25 11:21
INR 1.07 02/22/25 11:21
APTT 29.4 Sec (23.4-35.0) 02/22/25 11:21
Sodium 141 mmol/L (135-145) 02/23/25 03:14
Potassium 3.9 mmol/L (3.5-5.1) 02/23/25 03:14
Chloride 113 mmol/L (98-107) H 02/23/25 03:14
Carbon Dioxide 21 mmol/L (22-30) L 02/23/25 03:14
BUN 10 mg/dl (9-20) 02/23/25 03:14
Creatinine 0.6 mg/dL (0.7-1.3) L 02/23/25 03:14
Calcium 8.1 mg/dl (8.4-10.2) L 02/23/25 03:14
Total Bilirubin 1.9 mg/dl (0.2-1.3) H 02/23/25 03:14
AST 55 U/L (17-59) 02/23/25 03:14
ALT 36 U/L (0-50) 02/23/25 03:14
Alkaline Phosphatase 118 U/L (38-126) 02/23/25 03:14
Lipase 76 U/L (23-300) 02/22/25 11:21
Diagnostic Image Results:
CT head:
IMPRESSION:
1. Mild diffuse cerebral and cerebellar volume loss.
2. Mild periventricular white matter leukoaraiosis
CT cervical spine:
IMPRESSION:
1. SEVERE DISCOGENIC DEGENERATIVE DISEASE at C5/C6 with a large disc-osteophyte complex causing moderate spinal cord compression, moderate central canal stenosis, and SEVERE RIGHT NEURAL FORAMINAL NARROWING.
2. Severe chronic discogenic degenerative disease and left-sided facet joint arthrosis at C4/C5.
3. 4 mm anterolisthesis of C3 on C4 secondary to severe bilateral facet joint arthrosis. SEVERE RIGHT NEURAL FORAMINAL NARROWING at C3/C4.
4. Previous anterior discectomy and fusion at C6/C7
Prior GI Procedures:
EGD: Never had
Colonoscopy: Per patient approximately 5 years ago ([facility]) per patient 'normal'. States he has a history of ulcerative colitis diagnosed at the age of 13 was on medications does not recall which until the age of mid 30s. Was then told his
ulcerative colitis was 'burned-out'. No longer required medications. Bowel movements are usually normal. Had hemorrhoids. Was sent to [facility] for hemorrhoidectomy. Has a history of prostate cancer status post prostatectomy
and radiation. Patient was never told that he had radiation proctitis and has never required treatment for such.
--> No records available to us.
Assessment / Plan
-
69-year-old male with past medical history of chronic alcohol abuse (1/5 of vodka or rum a day last use 6 PM 02/21/2025), hypertension, hyperlipidemia, gout, CAD, hypothyroidism, per patient recent admission September and November for pneumonia,
hemochromatosis, prostate cancer status post prostatectomy and radiation, history of ulcerative colitis (diagnosed at the age of 13 and was on medications to his 30s (states this is 'burned out', followed by [facility] with last colonoscopy
approximately 5 years ago and hemorrhoidectomy with colorectal surgery at [facility]) who presents to the emergency room yesterday with neck pain for 5 days. The patient also reports having dark stools. We are asked to evaluate for his
history of dark stools and to rule out GI bleed. At the present time the patient is having green stools. He is OB negative x 2. He states that last week he was having darker stools. He denies any use of iron or Pepto-Bismol. He denies any
heartburn, reflux. He does have some dry heaves while here. He did have an episode of vomiting at home last week. He denies any hematemesis or coffee grounds. He denies any abdominal pain. He denies any nausea, vomiting, hematochezia, dysphagia
or odynophagia. No early satiety or unintended weight loss. The patient vapes. He continuously drinks alcohol. He has no known history of peptic ulcer disease that he is aware of. He does not take any PPI, H2 deon or Tums. He denies any
aspirin, ibuprofen, Motrin or NSAID use. He does use allopurinol for gout. He states he uses Oxycodone for his neck pain. He has an uncle who has a history of prostate cancer. He denies any family history of gastrointestinal malignancy or IBD
other than himself. States he has a history of ulcerative colitis diagnosed at the age of 13 was on medications does not recall which until the age of mid 30s. Was then told his ulcerative colitis was 'burned-out'. No longer required medications.
Bowel movements are usually normal. Had hemorrhoids. Was sent to [facility] for hemorrhoidectomy. Has a history of prostate cancer status post prostatectomy and radiation. Patient was never told that he had radiation proctitis
and has never required treatment for such. WBC 4.2, hemoglobin 12.0, hematocrit 38.4, MCV 63.4, MCH 20.0, platelets 171, sodium 141, potassium 3.9, BUN 10, creatinine 0.6, glucose 82, iron 312, TIBC 311, percent saturation 100, ferritin 45.9, B12
411, total bilirubin 1.9, AST 55, ALT 36, alk phos 118. Stool OB negative x 2. Tox screen positive for oxycodone, barbiturates, tricyclics, benzodiazepines. EtOH 33.
Impression:
History of dark stools at home, green stools here OB negative x 2 (2 separate bowel movements)
Significant alcohol abuse (1/5 of vodka or rum daily up to half gallon daily)
Neck pain
History of hemochromatosis, follows with [facility]
History of ulcerative colitis
-->diagnosed at age 13, on medication (unsure what it was) up until the age of his mid 30s. Was told it was 'burned out'.
--> Last colonoscopy 5 years ago with [facility], follows with them routinely.
--> Hemorrhoidectomy with [facility]
Plan:
- No signs of GI bleeding at present time, OB negative stool x 2
- Recommend alcohol cessation
- Can follow-up with primary GI ([facility])
- If with any other GI complaints please call back.
- Follow-up with hematology as outpatient.
- Can continue pantoprazole for GI prophylaxis given severe ETOH use.
-
-
Thank you for consultation and allowing me to participate in the patient's care. Please call the information receptionist GI physician during the after hours with any questions or concerns.
[2025-02-23] MEDS: ZYLOPRIM 200 MG PO (17:26)
[2025-02-23 18:08] LABS: Hematocrit 32.7 % (39.0-52.0); Hemoglobin 10.5 g/dL (13.0-18.0)
--- NOTE | 2025-02-23 18:13 | PTCARENOTE ---
Patients MSAS has been <4 overall this shift. Patient has been compliant with plan of care. Complaining of neck pain treated with Oxycodone as per doctors orders. Patient has brown/ green loose stool, heme test negative. Blood pressure elevated
180/100, discussed with Dr. Macedo and new orders obtained.
[2025-02-23] MEDS: CALAN EXTENDED RELEASE 180 MG PO (18:32)
[2025-02-23] MEDS: MELATONIN 5 MG PO ×2 (21:01)
[2025-02-23] MEDS: COLACE 300 MG PO (21:01)
[2025-02-23] MEDS: REMOVE LIDOCAINE PATCH 1 PATCH REMOVE (21:02)
[2025-02-23] MEDS: REMOVE NICOTINE PATCH 1 PATCH REMOVE (21:10)
--- NOTE | 2025-02-23 22:48 | PTCARENOTE ---
received patient from previous RN. Patient is AAOx3 with tremors in both hands. Patient attempted to get OOB a few times so far, bed alarm on. Educated patient to use call kapoor for assistance. Patient using bedside commode with assistance. MSAS
protocol. Patient on room air. call kapoor in reach. assessment and vital signs as documented.
[2025-02-24] VITALS (18 sets, daily range): BP systolic 117–172; BP diastolic 74–102
[2025-02-24] MEDS: ATIVAN 1 MG PO ×2 (03:00→21:53)
[2025-02-24 03:18] LABS: Hematocrit 34.6 % (39.0-52.0); Hemoglobin 10.8 g/dL (13.0-18.0); Mean Corp Hgb Conc. 31.2 g/dL (33.0-37.0); Mean Corpuscular Volume 63.3 fL (80.0-94.0); Platelet Count 136 10^3/uL (130-400); Red Cell Dist. Width 17.2 % (11.5-14.5)
[2025-02-24 03:38] LABS: ALT (SGPT) 31 U/L (0-50); AST (SGOT) 38 U/L (17-59); Albumin 3.7 g/dl (3.5-5.0); Alkaline Phosphatase 125 U/L (38-126); Blood Urea Nitrogen 8 mg/dl (9-20); Calcium 8.6 mg/dl (8.4-10.2); Carbon Dioxide 24 mmol/L (22-30); Chloride 110 mmol/L (98-107); Estimated Creatinine Clearance > 125 ml/min; Glucose 93 mg/dl (70-99); Potassium 4.0 mmol/L (3.5-5.1); Sodium 137 mmol/L (135-145); Total Protein 6.5 g/dl (6.3-8.2); eGFR > 60.00
[2025-02-24] MEDS: ROXICODONE 5 MG PO ×2 (03:52→07:56)
[2025-02-24] MEDS: SYNTHROID 25 MCG PO (03:52)
--- NOTE | 2025-02-24 04:51 | PTCARENOTE ---
patient repeatedly made attempts to get out of bed to walk around. Patient very unsteady on feet requiring 2-3 person assist. Patient hallucinating in room saying there is 'demons coming to get him'. Patient remained AAO3. Patient restless and can
be agitated. Patient using urinal frequently and urinated on floor once for this RN.
[2025-02-24] MEDS: ATIVAN 1 MG IV ×5 (05:22→13:11)
[2025-02-24] MEDS: NICODERM TRANSDERMAL 21 MG TRANSDERM (07:52)
[2025-02-24] MEDS: PROTONIX IV 40 MG IV ×2 (07:54→19:35)
[2025-02-24] MEDS: NSS (PRESERVATIVE FREE) 0.5 ML IV (07:54)
[2025-02-24] MEDS: THIAMINE INJECTION 200 MG IV ×3 (07:54→23:20)
[2025-02-24] MEDS: NSS (PRESERVATIVE FREE) 10 ML IV ×2 (07:54→19:34)
[2025-02-24] MEDS: ZESTRIL 10 MG PO (07:55)
[2025-02-24] MEDS: HEPARIN 5000 UNITS SC ×3 (07:55→23:20)
[2025-02-24] MEDS: PHENOBARBITAL 97.5 MG IV ×3 (07:55→21:23)
[2025-02-24] MEDS: LIPITOR 20 MG PO (07:56)
[2025-02-24] MEDS: CALAN EXTENDED RELEASE 180 MG PO (07:56)
[2025-02-24] MEDS: MAG-TAB SR 84 MG PO (07:56)
[2025-02-24] MEDS: TOPROL XL 100 MG PO (07:56)
[2025-02-24] MEDS: FOLVITE 1 MG PO (07:56)
[2025-02-24] MEDS: MORPHINE SULFATE 2 MG IV (10:33)
--- NOTE | 2025-02-24 11:02 | PTCARENOTE ---
Pt's assessment as documented. Extremely agitated. Pt very impulsive but able to be re-directed at this time. MSAS scores 10 and above, see intervention. Medicated with PRN Ativan as ordered. Pt also c/o of severe back pain, medicated with
Oxycodone and Morphine, see MAR. Bed alarm and 1:[address] for safety.
--- NOTE | 2025-02-24 13:37 | W.PN.HOSP.TC ---
Today's Communication/Plan
-
Transferred to ICU for Precedex and alcohol withdrawal management.
Assessment / Plan
Assessment / Plan
#Nausea with black stools
No evidence of active GI bleed. Heme test negative twice. H&H shows anemia but stable.
He has microcytosis. His iron studies are difficult to interpret because he is got hemochromatosis and gets phlebotomy.
Appreciate GI input.
Continue with PPI and antiemetics. Follow H&H closely
#Neck pain
Severe in nature
No radiculopathy
History of prior cervical disc's disease and surgery
Patient had fall a week ago
CT cervical spine shows severe DJD at C5-C6 with osteophyte causing moderate spinal compression and moderate central canal stenosis and severe right neural foraminal narrowing at C5/C6 and C3/C4 prior anterior discectomy and fusion at C6/C7 noted
Continue with the pain regimen and consider Ortho input/epidural injections for intractable pain.
#Alcohol use disorder
No prior history of alcohol withdrawal
Today he is in full-blown alcohol withdrawal symptoms including confusion, hallucinations and agitation. His symptoms are progressing on Ativan and phenobarb. Will transfer to ICU for Precedex.
His tremors to me sound more benign essential tremor rather than withdrawal.
Patient was amenable for alcohol withdrawal resources. Case management to involve [facility].
#Tremors-worse when he is tries to reach out for things or grab things. Noted on an outstretched hands against when they are held at the gravity. No neck tremor or lower extremity tremors. Admitting CT head shows no evidence of acute intracranial
finding
#Active wheezing-without short of breath or cough. Patient is an ex-smoker but currently actively vapes. Does not use inhalers at home. Uses as needed nebulizers. Obtain a chest c-sob-lduelwm. He has a history of pneumonia 2 months ago and was
supposed to get a follow-up chest imaging
#Hypertension-continue the home medication and follow
#Hemochromatosis-ferritin is at 45 and percent saturation is very high at 100%. Patient to follow-up with primary crabbing machine operator
#CAD status post prior coronary stenting-continue with his aspirin and statins
#Hypothyroidism-continue Synthroid
Full code
Discussed with RN
Discussed with ICU team
Total time spent on today's encounter was 52 minutes which included time spent in counseling the patient/family regarding diagnosis and treatment plan as listed above, goals of care, and symptom management. Case was discussed with nursing staff,
specialists, and care coordinators/case management. All labs and imaging personally reviewed by me. Remainder the time spent in detailed review of previous records, lab data, imaging, and other medical provider documentation.
Anticipated Discharge: > 48 hours
Subjective/Interval History
-
Date of Service: February 24, 2025
Increasing agitation today. He is also having hallucination. Since midnight he used 8 mg of Ativan. He is also on phenobarb.
When I arrived patient is anxious and constantly trying to get out of bed. Redirectable but poor attention span. He ultimately forced himself out of bed and we could not hold him down. Code purple was called.
He seems to have recognized me. He knew he is in the hospital but got confused to [place]. He was much clearer yesterday as he had told me that he does not like [place] that is why he came to [facility].
Objective Data
-
Labs:
Laboratory Results
02/24/25 02/24/25 02/24/25
02:45 02:45 02:45
WBC 5.7
Hgb Cancelled 10.8 L
Hct Cancelled 34.6 L
Plt Count 136 D
Sodium 137
Potassium 4.0
Chloride 110 H
Carbon Dioxide 24
BUN 8 L
Creatinine 0.6 L
Glucose 93
Calcium 8.6
Total Bilirubin 2.1 H
AST 38
ALT 31
Alkaline Phosphatase 125
Vital Signs:
Vital Signs
Temp Pulse Resp BP Pulse Ox
97.7 F 61 24 162/85 94
02/24/25 11:51 02/24/25 12:00 02/24/25 12:00 02/24/25 12:00 02/24/25 12:50
I&O
02/23/25 02/24/25 02/25/25
06:59 06:59 06:59
Intake Total 2744 / 2744 2119
Output Total 200 / 200 200 / 200 350 / 350
Balance 2544 / 2544 1920 / 1920 -350 / -350
Review of Systems
-
Unable to obtain full review of systems at this time due to: Other (Due to cognitive impairment)
Physical Exam
-
General: Negative Comfortable
Respiratory: Non Labored Respirations; Negative Accessory Resp Muscle Use
Cardiac: Regular Rhythm and S1/S2; Negative Tachycardic
GI: Soft
Neuro: Awake, Alert and Oriented (Self only); Negative Tremors (No tremors currently)
Psych: Confused and Agitated
Data Reviewed
-
Labs: Labs Reviewed by me
[2025-02-24] MEDS: PRECEDEX 100 IV ×2 (13:47→19:34)
--- NOTE | 2025-02-24 14:00 | PTCARENOTE ---
Received pt post code purple. He is in the bed, MSAS 9. Precedex @ 0.04mcg/kg/hr titrated per protocol. He opened his eyes asking what happened and where he was. He was informed that he was hallucinating and was no longer cooperative and escalated
and became agitated. He stated he never went throgh alcohol withdrawal before. He was informed he would stay here for closer monitoring of his symptoms of withdrawal. He nodded his head in understanding. Lungs CTA. Large round rotund abdomen. He was
incontinent of bladder. Complete CHG bath provided. 1:1 observer remained at the bedside. Safe environment maintained.
--- NOTE | 2025-02-24 14:01 | PTCARENOTE ---
This RN and 1:1 at bedside with MD. Pt increasingly agitated and uncooperative. Climbing OOB and attempting to go into halls. Code purple called. Order received for pt to transfer to ICU. Report to receiving RN. Belongings collected and sent with
pt.
--- NOTE | 2025-02-24 14:56 | CM ---
Active ETOH withdrawal: Agitation, hallucinations, confusion. Transferred from IMU to ICU for IV/Precedex. [facility] following. DIscharge Plan of Care TBD.
--- NOTE | 2025-02-24 15:33 | CON.INTV ---
Consultation
Consultation Request
Date/Time Consultation Requested: 02/24/2025
Date/Time Consultation Performed: 02/24/2025
Requesting Provider: Dr. Macedo
Performing Provider: Dr. Beckett
Reason for Consultation: EtOH withdrawal/agitation
Medical History
-
Chief Complaint: Neck pain and dark tarry stool
History of Present Illness:
69-year-old male with a past medical history of chronic alcoholism, hypertension, hyperlipidemia, hemochromatosis, gout, CAD s/p coronary stents x 2, prostate cancer s/p prostatectomy, hypothyroidism, and daily vape use with nicotine who presented
with neck pain, dark tarry stool and found to be visibly tremulous in triage. He continues to drink alcohol, drinking half a gallon of premixed cocktails per day with last drink on 02/21/2025. Initially, patient was afebrile with pulse rate 128,
respiratory rate 18, BP 171/110 and he was saturating 98% on room air. Initial labs pertinent for sodium 148, serum bicarbonate level 21, glucose 160, magnesium 1.3, AST 84, and initial alcohol level: 33. Cervical spine CT initially showed severe
discogenic degenerative disease at C5-C6 with a large disc�osteophyte complex causing moderate spinal cord compression. Initial CT head on 02/22 showed no acute intracranial pathology. Patient was initially admitted to the IMU for further
treatment. Patient was stool occult negative. Patient's tremors continue to worsen with increasing alcohol withdrawal symptoms. On 02/24, patient had worsening agitation with confusion, hallucinations and this was happening despite being on as
needed Ativan and phenobarbital. Patient transferred to the ICU for Precedex infusion and Technician Helper Instrument services consulted for additional management/recommendations.
When I saw the patient, he was awake but confused. Heart rate 55, saturating 96% on room air and BP 159/84. Precedex being started and is currently at 0.6 mcg/kg/hr.
PMHx: Chronic alcoholism, hypertension, hyperlipidemia, gout, CAD s/p coronary stent x 2, hypothyroidism, prostate cancer s/p prostatectomy, hemochromatosis
PSHx: Coronary stent x 2, prostatectomy, left knee surgery, discectomy
Past Medical History
Past Medical History: Other (Above as per HPI)
Past Surgical History: Other (Above as per HPI)
Social History
Tobacco: Vaping (Vapes throughout the day)
Alcohol: Daily (Drinks 1/5 of premixed cocktail daily)
Drug: None
Living: With Family
Employment: Retired
Family History
Family History: Unable to Obtain
Allergies / Home Medications
Allergies
Allergy/AdvReac Type Severity Reaction Status Date / Time
No Known Allergies Allergy Unverified 02/22/25 10:39
Home Medications
�Medication �Instructions �Recorded �Confirmed �Last Taken �Type
allopurinol 100 mg tablet 200 mg PO QPM Gout 02/22/25 02/23/25 Unknown History
atorvastatin 20 mg tablet (Lipitor) 20 mg PO DAILY High Cholesterol 02/22/25 02/23/25 Unknown History
cholecalciferol (vitamin D3) 25 25 mcg PO DAILY Supplement 02/22/25 02/23/25 Unknown History
mcg (1,000 unit) tablet (Vitamin
D3)
docusate sodium 100 mg capsule 300 mg PO HS Constipation 02/22/25 02/23/25 Unknown History
(Colace)
folic acid 800 mcg tablet 0.8 mg PO DAILY Supplement 02/22/25 02/23/25 Unknown History
levothyroxine 25 mcg tablet 25 mcg PO DAILY Thyroid 02/22/25 02/23/25 Unknown History
(Synthroid)
lisinopril 10 mg tablet 10 mg PO DAILY Blood Pressure 02/22/25 02/23/25 Unknown History
magnesium oxide 400 mg PO DAILY Supplement 02/22/25 02/23/25 Unknown History
metoprolol succinate 100 mg 100 mg PO DAILY Heart 02/22/25 02/22/25 Unknown History
tablet,extended release 24 hr Disease/Condition
(Toprol XL)
quetiapine 50 mg tablet (Seroquel) 50 mg PO HS Mental Health/Anxiety 02/22/25 02/22/25 Unknown History
selenium 50 mcg tablet 50 mcg PO DAILY Supplement 02/22/25 02/22/25 Unknown History
verapamil 180 mg tablet,extended 180 mg PO DAILY Heart 02/22/25 Unknown History
release Disease/Condition
selenium 200 mcg tablet 200 mcg PO DAILY Supplement 02/23/25 02/23/25 Unknown History
Review of Systems
-
Unable to Obtain full review of systems at this time due to: Acuity
Vitals / Labs / Diagnostic Testing
Vital Signs
Temp Pulse Resp BP Pulse Ox
97.7 F 62 21 159/84 96
02/24/25 15:58 02/24/25 16:00 02/24/25 16:00 02/24/25 16:00 02/24/25 16:00
Lab Data
02/24/25 02:45
02/24/25 15:39
Laboratory Results
02/24/25
15:39
PT 14.0
INR 1.05
APTT 32.9
Diagnostic Testing:
Physical Exam
-
HEENT: Normocephalic and Anicteric
Cardiovascular: S1/S2 and Peripheral Edema (negative)
Respiratory: Clear, Wheeze (negative), Rales (negative), Rhonchi (negative) and Non-Labored Respirations
GI: Soft, Non Distended, Non Tender and Normal Bowel Sounds
Neurology: Awake, Tremors (negative) and Other (confused)
Skin: Warm and Dry
General: Respiratory Distress (negative), Comfortable, Fever (negative) and Chills (negative)
Assessment
-
Assessment: 69-year-old male with a past medical history of chronic alcoholism, hypertension, hyperlipidemia, hemochromatosis, gout, CAD s/p coronary stents x 2, prostate cancer s/p prostatectomy, hypothyroidism, and daily vape use with nicotine
who presented with neck pain, dark tarry stool and found to be visibly tremulous in triage. He continues to drink alcohol, drinking half a gallon of premixed cocktails per day with last drink on 02/21/2025. Initially, patient was afebrile with
pulse rate 128, respiratory rate 18, BP 171/110 and he was saturating 98% on room air. Initial labs pertinent for sodium 148, serum bicarbonate level 21, glucose 160, magnesium 1.3, AST 84, and initial alcohol level: 33. Cervical spine CT
initially showed severe discogenic degenerative disease at C5-C6 with a large disc�osteophyte complex causing moderate spinal cord compression. Initial CT head on 02/22 showed no acute intracranial pathology. Patient was initially admitted to the
IMU for further treatment. Patient was stool occult negative. Patient's tremors continue to worsen with increasing alcohol withdrawal symptoms. On 02/24, patient had worsening agitation with confusion, hallucinations and this was happening despite
being on as needed Ativan and phenobarbital. Patient transferred to the ICU for Precedex infusion and Technician Helper Instrument services consulted for additional management/recommendations.
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
Impression:
#Chronic alcoholism with acute alcohol withdrawal with agitation requiring Precedex drip
#Anemia
#Black, tarry stools reported by patient
#Thrombocytopenia
#Hyperbilirubinemia
#Nicotine use via vaping
#History of hemochromatosis (follows with [facility])
#History of ulcerative colitis
Plan:
- Patient was being managed on the floor for alcohol withdrawal when his agitation markedly worsened and he was not improving despite frequent prn ativan usage for MSAS scores
- Continue phenobarbital with taper as he clinically improves - would give IV for now and not PO given his poor mental status; since last drink on 02/21, he should only need another 2 days of phenobarbital before we can start to wean down without
high risk of seizure
- Start Precedex
- Use soft restraints if needed
- Continue MSAS with prn ativan
- Thiamine and folate
- Continue nicotine patch given his daily nicotine vape usage
- Avoid PO meds until mentation improves given risk for aspiration
- Continue with PPI 40mg IV BID
- Have low suspicion for an active UGIB given that his BUN is not elevated, and H&H have remained at approximately 10.5�12 since admission (initial Hb 13 however this was likely hemoconcentrated)
- GI consulted and recommended outpatient GI follow-up. No need for EGD at this point, and GI signed off on 02/23/2025
- Trend H/H and transfuse if needed to keep Hb>7g/dL; keep plt>20k, unless there is concern for acute bleeding then keep plt>50k
- Maintain SpO2 >90-94%
- Continue aspiration precautions; keep HOB >30-45�
- Patient CXR from today (02/24) shows opacification in the left middle lung field, possibly due to aspiration --> I will empirically start Unasyn
- If patient spikes a fever then would panculture; check sputum culture if patient can produce a decent sample
- Trend WBC and monitor temperature curve
- Check urine antigens for legionella and Strep PNA
- prn nebulized bronchodilators - not currently bronchospastic
- Maintain MAP>65
- Replete electrolytes with K>4, Mg>2
- Maintain euglycemia with goal BG 140-180
- Once mental status normalizes, then would encourage use of incentive spirometer 10x per hour for at least 4 hrs a day
- DVT ppx: HSQ
Code status: Full code
Critical care statement: A total of 38 minutes of critical care time was provided for this patient today. This includes management of unstable vital signs, evaluation of the patient at bedside, reviewing the patient's pertinent medical records
including radiographs, microbiology, laboratory evaluations, and discussion with primary team, consultants, pharmacy, nutrition, physical therapy, case management, charge nurse, critical care nursing, and respiratory therapy.
Data:
CXR 02/24/2025:
Low lung volumes.
Suspected pneumonia in the mid to lower left lung. Close follow-up radiographs recommended for reevaluation
[2025-02-24 16:00] LABS: INR 1.05; PT 14.0 Sec (11.4-14.6)
[2025-02-24 16:01] LABS: APTT 32.9 Sec (23.4-35.0)
[2025-02-24 16:10] LABS: Blood Urea Nitrogen 7 mg/dl (9-20); Calcium 8.5 mg/dl (8.4-10.2); Carbon Dioxide 22 mmol/L (22-30); Chloride 109 mmol/L (98-107); Estimated Creatinine Clearance > 125 ml/min; Glucose 110 mg/dl (70-99); Magnesium 1.8 mg/dl (1.6-2.3); Potassium 4.0 mmol/L (3.5-5.1); Sodium 137 mmol/L (135-145); eGFR > 60.00
--- NOTE | 2025-02-24 16:20 | PTCARENOTE ---
Dr. Beckett notified via TT magnesium 1.8.
[2025-02-24] MEDS: PHENOBARBITAL IV (17:27)
[2025-02-24] MEDS: UNASYN IV ×2 (17:28→23:20)
--- NOTE | 2025-02-24 18:21 | PTCARENOTE ---
Dr. Beckett TT's that he was bladder scanned for 840ml's. He was incontinent upon arrival from IMU @ 1400. Awaiting orders for straight cath or indwelling haney catheter.
[2025-02-24] MEDS: ZYLOPRIM PO (19:13)
[2025-02-24] MEDS: APRESOLINE 10 MG IV (19:44)
[2025-02-24] MEDS: MAGNESIUM SULFATE 100 IV (19:45)
[2025-02-24] MEDS: REMOVE LIDOCAINE PATCH 1 PATCH REMOVE (21:23)
[2025-02-24] MEDS: COLACE 300 MG PO (21:23)
[2025-02-24] MEDS: MELATONIN 5 MG PO (21:23)
[2025-02-24] MEDS: REMOVE NICOTINE PATCH 1 PATCH REMOVE (21:30)
--- NOTE | 2025-02-24 21:45 | PTCARENOTE ---
Received pt from previous RN. Pt was unresponsive and sonorous on Precedex at 0.6 mcgs. Precedex weaned to 0.4 mcgs. Pt arousable, AAOx2 (time), drowsy, restless, confused/forgetful. MSAS per protocol (see worklist). Pt states he was having
hallucinations earlier in the day. Sinus chiquita w/ BBB on the monitor. BP elevated, ICU FORM BUILDER HELPER notified, PRN Hydralazine ordered and given (see MAR). Pt on RA O2 sat 96%, lungs clear, tachypneic. CHG bath provided. Bed alarm in place. Call kapoor in
reach. Safe environment maintained.
--- NOTE | 2025-02-24 23:56 | PTCARENOTE ---
Systems reviewed, no new changes in assessment. MSAS per protocol. Dex maintained. Straight cath provided (see worklist). Bed alarm in place. Safe environment maintained.
[2025-02-25] VITALS (23 sets, daily range): BP systolic 102–164; BP diastolic 62–101; BMI 27.3
[2025-02-25] MEDS: SYNTHROID 25 MCG PO (04:19)
--- NOTE | 2025-02-25 04:23 | PTCARENOTE ---
Systems reviewed, no new changes in assessment. AM labs provided. Call kapoor in reach. Bed alarm in place. Safe environment maintained.
[2025-02-25] MEDS: ATIVAN 1 MG PO ×6 (04:28→20:58)
[2025-02-25 04:55] LABS: Blood Urea Nitrogen 7 mg/dl (9-20); Calcium 8.5 mg/dl (8.4-10.2); Carbon Dioxide 21 mmol/L (22-30); Chloride 113 mmol/L (98-107); Estimated Creatinine Clearance > 125 ml/min; Glucose 96 mg/dl (70-99); Magnesium 2.1 mg/dl (1.6-2.3); Potassium 4.0 mmol/L (3.5-5.1); Sodium 139 mmol/L (135-145); eGFR > 60.00
[2025-02-25] MEDS: UNASYN IV ×3 (05:17→18:19)
[2025-02-25] MEDS: PRECEDEX 100 IV ×2 (06:39→19:06)
[2025-02-25] MEDS: NICODERM TRANSDERMAL 21 MG TRANSDERM (07:46)
[2025-02-25] MEDS: TOPROL XL 100 MG PO (07:48)
[2025-02-25] MEDS: CALAN EXTENDED RELEASE 180 MG PO (07:48)
[2025-02-25] MEDS: LIPITOR 20 MG PO (07:48)
[2025-02-25] MEDS: FOLVITE 1 MG PO (07:48)
[2025-02-25] MEDS: ZESTRIL 10 MG PO (07:49)
[2025-02-25] MEDS: ROXICODONE 5 MG PO ×2 (07:52→21:24)
[2025-02-25] MEDS: THIAMINE INJECTION 200 MG IV (07:52)
[2025-02-25] MEDS: PROTONIX IV 40 MG IV (07:53)
[2025-02-25] MEDS: NSS (PRESERVATIVE FREE) 10 ML IV (07:53)
[2025-02-25] MEDS: PHENOBARBITAL 97.5 MG IV ×3 (07:53→21:00)
[2025-02-25] MEDS: HEPARIN 5000 UNITS SC ×2 (07:53→15:42)
[2025-02-25] MEDS: MAG-TAB SR 84 MG PO (07:53)
--- NOTE | 2025-02-25 08:22 | W.PN.INTV ---
Today's Communication / Plan
Recommendations
Precedex
MSAS
Up OOB as tolerated
Patient has erythematous, flaky skin around his forehead/nasolabial fold on his face and he reports a history of psoriasis � trial a low potency steroid cream (triamcinolone 0.025%)
Pain control
Outpatient repeat CXR to assure that this left-sided opacity has improved otherwise may need CT chest
Nicotine patch
Continue ICU level of care for this critically ill patient
Assessment
-
Assessment: 69-year-old male with a past medical history of chronic alcoholism, hypertension, hyperlipidemia, hemochromatosis, gout, CAD s/p coronary stents x 2, prostate cancer s/p prostatectomy, hypothyroidism, and daily vape use with nicotine
who presented with neck pain, dark tarry stool and found to be visibly tremulous in triage. He continues to drink alcohol, drinking half a gallon of premixed cocktails per day with last drink on 02/21/2025. Initially, patient was afebrile with
pulse rate 128, respiratory rate 18, BP 171/110 and he was saturating 98% on room air. Initial labs pertinent for sodium 148, serum bicarbonate level 21, glucose 160, magnesium 1.3, AST 84, and initial alcohol level: 33. Cervical spine CT
initially showed severe discogenic degenerative disease at C5-C6 with a large disc�osteophyte complex causing moderate spinal cord compression. Initial CT head on 02/22 showed no acute intracranial pathology. Patient was initially admitted to the
IMU for further treatment. Patient was stool occult negative. Patient's tremors continue to worsen with increasing alcohol withdrawal symptoms. On 02/24, patient had worsening agitation with confusion, hallucinations and this was happening despite
being on as needed Ativan and phenobarbital. Patient transferred to the ICU for Precedex infusion and Pharmacy Picking Tech services consulted for additional management/recommendations.
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
Impression:
#Chronic alcoholism with acute alcohol withdrawal with agitation requiring Precedex drip
#Anemia
#Black, tarry stools reported by patient
#Thrombocytopenia
#Hyperbilirubinemia
#Nicotine use via vaping
#History of hemochromatosis (follows with [facility])
#History of ulcerative colitis
Plan:
- Patient was being managed on the floor for alcohol withdrawal when his agitation markedly worsened and he was not improving despite frequent prn ativan usage for MSAS scores
- Continue phenobarbital with taper as he clinically improves - continue IV for now until tomorrow, then can start PO as he had poor mental status on 02/24, and he is waxing and waning with his level of confusion/level of alertness; since last drink
on 02/21, should be able to start weaning down phenobarbital tomorrow without high risk of seizure
- Continue Precedex
- Use soft restraints if needed
- Continue MSAS with prn ativan
- Thiamine and folate
- Continue nicotine patch given his daily nicotine vape usage
- Continue PO meds but hold if needed if he becomes more lethargic given risk for aspiration
- Continue with PPI 40mg IV BID
- Have low suspicion for an active UGIB given that his BUN is not elevated, and H&H have remained at approximately 10.5�12 since admission (initial Hb 13 however this was likely hemoconcentrated)
- GI consulted and recommended outpatient GI follow-up. No need for EGD at this point, and GI signed off on 02/23/2025
- Trend H/H and transfuse if needed to keep Hb>7g/dL; keep plt>20k, unless there is concern for acute bleeding then keep plt>50k
- Maintain SpO2 >90-94%
- Continue aspiration precautions; keep HOB >30-45�
- Patient CXR from 02/24 shows opacification in the left middle lung field, possibly due to aspiration --> continue empiric Unasyn (started 02/24)
- If patient spikes a fever then would panculture; check sputum culture if patient can produce a decent sample
- Trend WBC and monitor temperature curve
- Urine antigens for both legionella and Strep PNA are negative
- prn nebulized bronchodilators - not currently bronchospastic
- Recommend repeating CXR in 4 to 6 weeks to assess for resolution of this left-sided lung opacity
- Of note, patient has erythematous, flaky skin around his forehead/nasolabial fold on his face and he reports a history of psoriasis � trial a low potency steroid cream (triamcinolone 0.025%)
- Maintain MAP>65
- Replete electrolytes with K>4, Mg>2
- Maintain euglycemia with goal BG 140-180
- Once mental status normalizes, then would encourage use of incentive spirometer 10x per hour for at least 4 hrs a day
- DVT ppx: HSQ
Code status: Full code
Continue ICU level of care for this critically ill patient.
Critical care statement: A total of 43 minutes of critical care time was provided for this patient today. This includes management of unstable vital signs, evaluation of the patient at bedside, reviewing the patient's pertinent medical records
including radiographs, microbiology, laboratory evaluations, and discussion with primary team, consultants, pharmacy, nutrition, physical therapy, case management, charge nurse, critical care nursing, and respiratory therapy.
Data:
CXR 02/24/2025:
Low lung volumes.
Suspected pneumonia in the mid to lower left lung. Close follow-up radiographs recommended for reevaluation
CXR 02/25/2025: Bibasilar opacities, more pronounced on the left and which may represent pneumonia.
Subjective Dataa
Subjective Data
Date of Service:
Date of Service: February 25, 2025
Chief Complaint: Pharmacy Picking Tech Follow Up
Subjective:
Patient seen and evaluated this AM. Remains on precedex 0.4mcg/kg/hr. Not on restraints this AM. Afebrile overnight. Confused at times. Heart rate 62, BP 117/76 and breathing comfortably on room air.
Review of Systems
General: Other (Unobtainable due to patient's acute clinical status)
Objective Data
Data Reviewed
Vital Signs / I&O / Oxygen:
Vital Signs
Temp Pulse Resp BP Pulse Ox
97.7 F 71 18 152/96 98
02/25/25 07:15 02/25/25 08:00 02/25/25 08:00 02/25/25 08:00 02/25/25 08:11
Intake and Output
02/24/25 02/25/25 02/26/25
06:59 06:59 06:59
Intake Total 0 / 0 996.1 / 1002.8 22.3 / 22.3
Output Total 200 / 200 1800 / 1800
Balance 192 / 1919 -803.9 / -797.2 22.3 / 22.3
SaO2 98
Physical Exam
General: Respiratory Distress (negative), Chills (negative) and Sweats (negative)
HEENT: Normocephalic and Anicteric
Cardiovascular: S1-S2 and Peripheral Edema (negative)
Respiratory: Clear, Wheeze (negative), Crackles (negative), Rhonchi (negative), Non-Labored Respirations and Stridor (negative)
GI: Soft, Non Distended, Non Tender and Normal Bowel Sounds
Neurology: Tremors (seen at rest, mainly in RUE) and Other (Confused/lethargic although easily arousable and answering questions but not always appropriately)
Skin: Warm, Dry, Cyanosis (negative), Jaundice (negative) and Other (Erythematous, flaky skin noticed on middle forehead above the nasal bridge, also on the nose/skin around the nasolabial folds)
Labs/Micro/Reports
Lab Data
02/24/25 02:45
02/25/25 04:19
Laboratory Results
02/24/25
15:39
PT 14.0
INR 1.05
APTT 32.9
Microbiology
02/24/25 18:40 Urine Legionella Urinary Antigen - Final
Negative for Legionella pneumophila Serogroup 1 antigen.
A negative result does not rule out the possiblity of
Legionella infection due to other serogroups or species of
Legionella. Clinical correlation is recommended.
02/24/25 18:40 Urine Streptococcus pneumoniae Antigen (M - Final
Negative for Streptococcus pneumoniae antigen.
A negative result does not exclude infection with
Streptococcus pneumoniae. Clinical correlation is
recommended.
--- NOTE | 2025-02-25 08:54 | W.PN.HOSP.TC ---
Today's Communication/Plan
-
Continue with alcohol withdrawal protocol.
Continue with Precedex
Continue with antibiotics for presumed pneumonia and obtain a CT chest once more stable.
Consult orthopedics
Assessment / Plan
Assessment / Plan
#Alcohol use disorder
No prior history of alcohol withdrawal
Patient with persistent hallucinosis related to alcohol withdrawal.
Not much agitation today. He is on Precedex. He is also on phenobarbital taper and as needed Ativan per MSAS score
His tremors soundS more benign essential tremor rather than withdrawal and would not include an MSAS score.
Patient was amenable for alcohol withdrawal resources. Case management to involve B cares.
#Nausea with black stools
No evidence of active GI bleed. Heme test negative twice. H&H shows anemia but stable.
He has microcytosis. His iron studies are difficult to interpret because he is got hemochromatosis and gets phlebotomy.
Appreciate GI input.
Continue with PPI and antiemetics. Follow H&H closely
#Neck pain
Severe in nature
No radiculopathy
History of prior cervical disc's disease and surgery
Patient had fall a week ago
CT cervical spine shows severe DJD at C5-C6 with osteophyte causing moderate spinal compression and moderate central canal stenosis and severe right neural foraminal narrowing at C5/C6 and C3/C4 prior anterior discectomy and fusion at C6/C7 noted
Continue with the pain regimen and Ortho input/epidural injections for intractable pain.
#Tremors-worse when he is tries to reach out for things or grab things. Noted on an outstretched hands against when they are held at the gravity. No neck tremor or lower extremity tremors. Admitting CT head shows no evidence of acute intracranial
finding
#Active wheezing-without short of breath or cough. Patient is an ex-smoker but currently actively vapes. Does not use inhalers at home. Uses as needed nebulizers. He has a history of pneumonia 2 months ago and was supposed to get a follow-up
chest imaging .none today. Not hypoxic.
# Bilateral opacities more pronounced on the left and may represent pneumonia-patient recently has had pneumonia and was supposed to get a follow-up imaging. When he came in he was not acting like pneumonia. No fevers no white count. Once alcohol
withdrawal is resolved I would get a chest CT for further evaluation. Continue with antibiotics for presumed pneumonia as per pulmonary.
#Hypertension-continue the home medication and follow
#Hemochromatosis-ferritin is at 45 and percent saturation is very high at 100%. 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
#CAD status post prior coronary stenting-continue with his aspirin and statins
#Hypothyroidism-continue Synthroid
Full code
Discussed with ICU team
Total time spent on today's encounter was 52 minutes which included time spent in counseling the patient/family regarding diagnosis and treatment plan as listed above, goals of care, and symptom management. Case was discussed with nursing staff,
specialists, and care coordinators/case management. All labs and imaging personally reviewed by me. Remainder the time spent in detailed review of previous records, lab data, imaging, and other medical provider documentation.
Anticipated Discharge: > 48 hours
Subjective/Interval History
-
Date of Service: February 25, 2025
Patient was sleeping but was arousable.
When asked where he is, he said' I am at this [facility], I see stack of pillows on top over there'
' I know you, I saw you before.'
Patient was made aware that he was confused and was hallucinating yesterday. When asked if he is saying anything, he said' Oh yeah ! I see a shark ther to my right , it has go this big nose.'
He said things about sharks to RN as well.
He is directable. He is calmer. He is currently on Precedex.
Asks me to do something about his righ neck and ear pain.
Objective Data
-
Labs:
Laboratory Results
02/25/25
04:19
Sodium 139
Potassium 4.0
Chloride 113 H
Carbon Dioxide 21 L
BUN 7 L
Creatinine 0.6 L
Glucose 96
Calcium 8.5
Vital Signs:
Vital Signs
Temp Pulse Resp BP Pulse Ox
97.7 F 71 18 152/96 98
02/25/25 07:15 02/25/25 08:00 02/25/25 08:00 02/25/25 08:00 02/25/25 08:11
I&O
02/24/25 02/25/25 02/26/25
06:59 06:59 06:59
Intake Total 2119 996.1 / 1002.8 13. / 13.4
Output Total 200 / 200 1800 / 1800
Balance 1919 / 1919 -803.9 / -797.2 13. / 13.4
Review of Systems
-
Unable to obtain full review of systems at this time due to: Other (Cognitive impairment)
Physical Exam
-
General: Comfortable
Respiratory: Clear to Auscultation (Anterior auscultation) and Non Labored Respirations; Negative Accessory Resp Muscle Use
Cardiac: Regular Rhythm and S1/S2; Negative Tachycardic
GI: Soft and Nontender
Neuro: Awake, Alert, Oriented (Self) and Tremors (Worse when reaching for objects but otherwise at rest no tremor)
Psych: Calm and Confused; Negative Agitated
Data Reviewed
-
Labs: Labs Reviewed by me
--- NOTE | 2025-02-25 10:30 | CON.NS ---
Consultation
-
Date/Time Consultation Performed: 02/25/2025
Chief Complaint
-
Right-sided neck pain
History of Present Illness
69-year-old male admitted for alcohol withdrawal. He states for the past week has been having right sided neck pain. States it is nonradicular in nature. He is on Precedex for withdrawal. States he has numbness and tingling in his upper and
lower extremities and is unable to quantify how long it has been present. He does have a history of anterior cervical discectomy and fusion done years ago. He is unsure when it was. He states it was done in [place]. States it hurts when he
turns his neck. Does find relief if his head is resting back on a pillow.
Review of Systems
-
10 point review of systems was completed and is negative except as stated in HPI
Medication and Allergies
Home Medications
Home Medications
�Medication �Instructions �Recorded
allopurinol 100 mg tablet 200 mg PO QPM Gout 02/22/25
atorvastatin 20 mg tablet (Lipitor) 20 mg PO DAILY High Cholesterol 02/22/25
cholecalciferol (vitamin D3) 25 25 mcg PO DAILY Supplement 02/22/25
mcg (1,000 unit) tablet (Vitamin
D3)
docusate sodium 100 mg capsule 300 mg PO HS Constipation 02/22/25
(Colace)
folic acid 800 mcg tablet 0.8 mg PO DAILY Supplement 02/22/25
levothyroxine 25 mcg tablet 25 mcg PO DAILY Thyroid 02/22/25
(Synthroid)
lisinopril 10 mg tablet 10 mg PO DAILY Blood Pressure 02/22/25
magnesium oxide 400 mg PO DAILY Supplement 02/22/25
metoprolol succinate 100 mg 100 mg PO DAILY Heart 02/22/25
tablet,extended release 24 hr Disease/Condition
(Toprol XL)
quetiapine 50 mg tablet (Seroquel) 50 mg PO HS Mental Health/Anxiety 02/22/25
selenium 50 mcg tablet 50 mcg PO DAILY Supplement 02/22/25
verapamil 180 mg tablet,extended 180 mg PO DAILY Heart 02/22/25
release Disease/Condition
selenium 200 mcg tablet 200 mcg PO DAILY Supplement 02/23/25
Allergies
Allergies
Allergy/AdvReac Type Severity Reaction Status Date / Time
No Known Allergies Allergy Unverified 02/22/25 10:39
Physical Exam
-
Exam:
Awake alert and oriented
Cranial nerves II through XII grossly intact
Motor strength testing reveals 5-5 upper and lower extremity strength
Sensory exam is normal
Reflexes are 1 out of 4 at all stations
There is no Aron's or clonus
There is tenderness to palpation over the right paravertebral musculature of the cervical spine
There is decreased range of motion cervical spine
CT of the cervical spine shows multilevel cervical spondylosis
. SEVERE DISCOGENIC DEGENERATIVE DISEASE at C5/C6 with a large disc-osteophyte complex causing moderate spinal cord compression, moderate central canal stenosis, and SEVERE RIGHT NEURAL FORAMINAL NARROWING.
2. Severe chronic discogenic degenerative disease and left-sided facet joint arthrosis at C4/C5.
3. 4 mm anterolisthesis of C3 on C4 secondary to severe bilateral facet joint arthrosis. SEVERE RIGHT NEURAL FORAMINAL NARROWING at C3/C4.
4. Previous anterior discectomy and fusion at C6/C7.
Problems
-
Problem Status Onset Code
Alcohol withdrawal Acute F10.939
Assessment / Plan
-
Neck pain
1. CT cervical spine most consistent with degenerative spine disease with history of C6-7 ACDF and C5-6 adjacent segment disease as well as C3-4 anterior listhesis with facet arthropathy
2. No acute neurosurgical interventions at this time
3. Recommend MRI of cervical spine if able as inpatient
4. Pain control
5. PT OT
6. Notify neurosurgery if/when MRI is completed
[2025-02-25 10:38] LABS: ALT (SGPT) 35 U/L (0-50); AST (SGOT) 57 U/L (17-59); Albumin 3.5 g/dl (3.5-5.0); Alkaline Phosphatase 132 U/L (38-126); Total Protein 6.3 g/dl (6.3-8.2)
--- NOTE | 2025-02-25 12:00 | PTCARENOTE ---
AAOx2. Severe tremor. Visual hallucinations at times. Very unsteady gait. 2 assist to bathroom. Multiple orange/brown stools today. Poor appetite. Refused breakfast. Only chicken broth for lunch. All other assessments unchanged.
[2025-02-25] MEDS: ROXICODONE 10 MG PO ×2 (12:31→18:19)
[2025-02-25 12:42] LABS: Ammonia 19 umol/L (9-30)
[2025-02-25] MEDS: TRIAMCINOLONE ACETONIDE 0.025% CREAM 1 APPLIC TOPICAL ×2 (14:59→21:16)
--- NOTE | 2025-02-25 15:30 | CM ---
ETOH withdrawal, Precedex, IV/AB and IV/phenobarb. [facility] following. Discharge POC: TBD.
--- NOTE | 2025-02-25 16:23 | PTCARENOTE ---
Hallucinating about monkeys on the ceiling and sharks talking to him. Given scheduled dose of phenobarbital, now appears to be resting comfortably. All other assessments unchanged.
[2025-02-25] MEDS: ZYLOPRIM 200 MG PO (18:19)
--- NOTE | 2025-02-25 20:04 | PTCARENOTE ---
Received pt from previous RN. Pt is AAOx2 (time), restless, confused/forgetful. MSAS per protocol, pt hallucinating pt states he sees monkeys and sharks in his room, pt is re-directed, PRN Ativan given (see MAR). NSR/ sinus chiquita w/ BBB. Pt on RA,
lungs clear, tachypneic. Abd round/obese, pt with a poor appetite. Pt incont of urine x1. Precedex @ 0.4 mcgs (see worklist). CHG and mouth care provided. Bed alarm in place. Call kapoor in reach. Safe environment maintained.
[2025-02-25] MEDS: REMOVE LIDOCAINE PATCH REMOVE ×2 (20:52→21:18)
[2025-02-25] MEDS: PROTONIX 40 MG PO (20:52)
[2025-02-25] MEDS: VITAMIN B1 100 MG PO (20:52)
[2025-02-25] MEDS: COLACE 300 MG PO (20:53)
[2025-02-25] MEDS: REMOVE NICOTINE PATCH 1 PATCH REMOVE (20:59)
[2025-02-25] MEDS: MELATONIN 5 MG PO (21:00)
[2025-02-26] VITALS (23 sets, daily range): BP systolic 118–180; BP diastolic 69–107; BMI 27.7
--- NOTE | 2025-02-26 00:06 | PTCARENOTE ---
Systems reviewed, no new changes in assessment. MSAS per protocol (see worklist). Call kapoor in reach. Safe environment maintained.
[2025-02-26] MEDS: HEPARIN 5000 UNITS SC ×4 (00:32→23:49)
[2025-02-26] MEDS: UNASYN IV ×5 (00:32→23:49)
[2025-02-26] MEDS: ATIVAN 1 MG PO ×8 (03:06→21:18)
[2025-02-26] MEDS: ROXICODONE 10 MG PO ×4 (03:16→18:24)
--- NOTE | 2025-02-26 03:21 | PTCARENOTE ---
Systems reviewed, no new changes in assessment. AM labs provided. Pt c/o 8 ear pain, PRN pain medication given (see MAR). Safe environment maintained.
[2025-02-26 03:33] LABS: Hematocrit 32.7 % (39.0-52.0); Hemoglobin 10.6 g/dL (13.0-18.0); Mean Corp Hgb Conc. 32.4 g/dL (33.0-37.0); Mean Corpuscular Volume 62.8 fL (80.0-94.0); Platelet Count 147 10^3/uL (130-400); Red Cell Dist. Width 17.4 % (11.5-14.5)
[2025-02-26 03:49] LABS: Blood Urea Nitrogen 8 mg/dl (9-20); Calcium 8.8 mg/dl (8.4-10.2); Carbon Dioxide 23 mmol/L (22-30); Chloride 111 mmol/L (98-107); Estimated Creatinine Clearance > 125 ml/min; Glucose 115 mg/dl (70-99); Potassium 3.8 mmol/L (3.5-5.1); Sodium 138 mmol/L (135-145); eGFR > 60.00
[2025-02-26] MEDS: SYNTHROID 25 MCG PO (05:00)
[2025-02-26] MEDS: PRECEDEX 100 IV (06:11)
[2025-02-26] MEDS: MAG-TAB SR 84 MG PO (07:39)
[2025-02-26] MEDS: VITAMIN B1 100 MG PO ×2 (07:39→19:12)
[2025-02-26] MEDS: LIPITOR 20 MG PO (07:39)
[2025-02-26] MEDS: TOPROL XL 100 MG PO (07:39)
[2025-02-26] MEDS: FOLVITE 1 MG PO (07:39)
[2025-02-26] MEDS: CALAN EXTENDED RELEASE 180 MG PO (07:39)
[2025-02-26] MEDS: PROTONIX 40 MG PO ×2 (07:39→19:11)
[2025-02-26] MEDS: TRIAMCINOLONE ACETONIDE 0.025% CREAM 1 APPLIC TOPICAL ×4 (07:39→21:20)
[2025-02-26] MEDS: ZESTRIL 10 MG PO (07:39)
[2025-02-26] MEDS: NICODERM TRANSDERMAL 21 MG TRANSDERM (07:40)
[2025-02-26] MEDS: PHENOBARBITAL 97.5 MG IV (07:41)
--- NOTE | 2025-02-26 08:21 | W.PN.INTV ---
Today's Communication / Plan
Recommendations
Precedex now off
MSAS
Up OOB as tolerated
Patient has erythematous, flaky skin around his forehead/nasolabial fold on his face and he reports a history of psoriasis � trial a low potency steroid cream (triamcinolone 0.025%)
Pain control
Outpatient repeat CXR to assure that this left-sided opacity has improved otherwise may need CT chest
Nicotine patch
Check MRI cervical spine (ordered by hospitalist) given severe discogenic degenerative disease at C5/6 with moderate spinal cord compression seen on CT C-spine on 02/22/2025
If patient remains stable off of Precedex drip for at least 6-8 hours, then will downgrade to IMU level of care. Once transferred to IMU, our service will sign off at that time. Please call pulmonary service if there are any additional questions
or concerns.
Assessment
-
Assessment: 69-year-old male with a past medical history of chronic alcoholism, hypertension, hyperlipidemia, hemochromatosis, gout, CAD s/p coronary stents x 2, prostate cancer s/p prostatectomy, hypothyroidism, and daily vape use with nicotine
who presented with neck pain, dark tarry stool and found to be visibly tremulous in triage. He continues to drink alcohol, drinking half a gallon of premixed cocktails per day with last drink on 02/21/2025. Initially, patient was afebrile with
pulse rate 128, respiratory rate 18, BP 171/110 and he was saturating 98% on room air. Initial labs pertinent for sodium 148, serum bicarbonate level 21, glucose 160, magnesium 1.3, AST 84, and initial alcohol level: 33. Cervical spine CT
initially showed severe discogenic degenerative disease at C5-C6 with a large disc�osteophyte complex causing moderate spinal cord compression. Initial CT head on 02/22 showed no acute intracranial pathology. Patient was initially admitted to the
IMU for further treatment. Patient was stool occult negative. Patient's tremors continue to worsen with increasing alcohol withdrawal symptoms. On 02/24, patient had worsening agitation with confusion, hallucinations and this was happening despite
being on as needed Ativan and phenobarbital. Patient transferred to the ICU for Precedex infusion and [employer] services consulted for additional management/recommendations.
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
Impression:
#Chronic alcoholism with acute alcohol withdrawal with agitation requiring Precedex drip - now off precedex drip since this AM
#Anemia
#Black, tarry stools reported by patient
#Thrombocytopenia
#Hyperbilirubinemia
#Nicotine use via vaping
#History of hemochromatosis (follows with [facility])
#History of ulcerative colitis
Plan:
- Patient was being managed on the floor for alcohol withdrawal when his agitation markedly worsened and he was not improving despite frequent prn ativan usage for MSAS scores
- Continue phenobarbital with taper as he clinically improves - continue IV for now until tomorrow, then can start PO as he had poor mental status on 02/24, and he is waxing and waning with his level of confusion/level of alertness; since last drink
on 02/21, should be able to start weaning down phenobarbital tomorrow without high risk of seizure
- Precedex now off as of this AM
- Use soft restraints if needed
- Continue MSAS with prn ativan
- Thiamine and folate
- Continue nicotine patch given his daily nicotine vape usage
- Continue PO meds but hold if needed if he becomes more lethargic given risk for aspiration
- Continue with PPI 40mg IV BID
- Have low suspicion for an active UGIB given that his BUN is not elevated, and H&H have remained at approximately 10.5�12 since admission (initial Hb 13 however this was likely hemoconcentrated)
- GI consulted and recommended outpatient GI follow-up. No need for EGD at this point, and GI signed off on 02/23/2025
- Trend H/H and transfuse if needed to keep Hb>7g/dL; keep plt>20k, unless there is concern for acute bleeding then keep plt>50k
- Maintain SpO2 >90-94%
- Continue aspiration precautions; keep HOB >30-45�
- Patient CXR from 02/24 shows opacification in the left middle lung field, possibly due to aspiration --> continue empiric Unasyn (started 02/24)
- If patient spikes a fever then would panculture; check sputum culture if patient can produce a decent sample
- Trend WBC and monitor temperature curve
- Urine antigens for both legionella and Strep PNA are negative
- prn nebulized bronchodilators - not currently bronchospastic
- Recommend repeating CXR in 4 to 6 weeks to assess for resolution of this left-sided lung opacity
- Of note, patient has erythematous, flaky skin around his forehead/nasolabial fold on his face and he reports a history of psoriasis � started trial of low potency steroid cream (triamcinolone 0.025%)
- Maintain MAP>65
- Replete electrolytes with K>4, Mg>2
- Maintain euglycemia with goal BG 140-180
- Encourage use of incentive spirometer 10x per hour for at least 4 hrs a day
- DVT ppx: HSQ
Code status: Full code
If patient remains stable off of Precedex drip for at least 6-8 hours, then will downgrade to IMU level of care. Once transferred to IMU, our service will sign off at that time. Please call pulmonary service if there are any additional questions
or concerns.
Data:
CXR 02/24/2025:
Low lung volumes.
Suspected pneumonia in the mid to lower left lung. Close follow-up radiographs recommended for reevaluation
CXR 02/25/2025: Bibasilar opacities, more pronounced on the left and which may represent pneumonia.
Total time spent today was 78 minutes for this encounter. Time includes reviewing laboratory test/imaging results, reviewing pertinent medical records, obtaining and reviewing medical history, performing an appropriate exam, ordering medications,
tests and procedures. Time also includes documentation of this encounter, coordinating patient care and communicating with other healthcare professionals. Total time does not include separately billed tests performed on this date of service.
Subjective Dataa
Subjective Data
Date of Service:
Date of Service: February 26, 2025
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
Subjective:
Patient seen and evaluated this morning. Agitated this morning, threw a cup of water across the unit because he needed help to have a BM. Heart rate 77, BP 153/105 and breathing comfortably on room air. Precedex drip off since this morning. He
otherwise is answering my questions appropriately. Still hallucinating and occasionally confused.
Review of Systems
General: Other (Negative unless mentioned above)
Objective Data
Data Reviewed
Vital Signs / I&O / Oxygen:
Vital Signs
Temp Pulse Resp BP Pulse Ox
98.0 F 61 21 148/84 97
02/26/25 07:55 02/26/25 06:00 02/26/25 06:00 02/26/25 06:00 02/26/25 03:16
Intake and Output
02/25/25 02/26/25 02/27/25
06:59 06:59 06:59
Intake Total 996.1 / 1002.8 1787.1 / 1793.8 6.7 / 6.7
Output Total 1800 / 1800 600 / 600
Balance -803.9 / -797.2 1187.1 / 1193.8 6.7 / 6.7
SaO2 97
Physical Exam
General: Respiratory Distress (negative), Chills (negative) and Sweats (negative)
HEENT: Normocephalic and Anicteric
Cardiovascular: S1-S2 and Peripheral Edema (negative)
Respiratory: Clear, Wheeze (negative), Crackles (negative), Rhonchi (negative), Non-Labored Respirations and Stridor (negative)
GI: Soft, Non Distended, Non Tender and Normal Bowel Sounds
Neurology: Awake, Alert, Tremors (seen at rest, mainly in RUE) and Other (Occasionally confused)
Skin: Warm, Dry, Cyanosis (negative), Jaundice (negative) and Other (Erythematous, flaky skin noticed on middle forehead above the nasal bridge, also on the nose/skin around the nasolabial folds)
Labs/Micro/Reports
Lab Data
02/26/25 03:13
02/26/25 03:12
Microbiology
02/24/25 18:40 Urine Legionella Urinary Antigen - Final
Negative for Legionella pneumophila Serogroup 1 antigen.
A negative result does not rule out the possiblity of
Legionella infection due to other serogroups or species of
Legionella. Clinical correlation is recommended.
02/24/25 18:40 Urine Streptococcus pneumoniae Antigen (M - Final
Negative for Streptococcus pneumoniae antigen.
A negative result does not exclude infection with
Streptococcus pneumoniae. Clinical correlation is
recommended.
--- NOTE | 2025-02-26 10:11 | W.PN.HOSP.TC ---
Today's Communication/Plan
-
MRI of the cervical spine
Neurology consult
Transfer out of ICU if remains stable from alcohol withdrawal standpoint.
Assessment / Plan
Assessment / Plan
#Alcohol use disorder
No prior history of alcohol withdrawal
Patient with persistent hallucinosis related to alcohol withdrawal. Improving. Off of Precedex this morning. Continue with phenobarb taper and as needed Ativan per MSAS
His tremors soundS more benign essential tremor rather than withdrawal and would not include an MSAS score.
Patient was amenable for alcohol withdrawal resources. Case management to involve B cares.
#Nausea with black stools
No evidence of active GI bleed. Heme test negative twice. H&H shows anemia but stable.
He has microcytosis. His iron studies are difficult to interpret because he is got hemochromatosis and gets phlebotomy.
Appreciate GI input.
Continue with PPI and antiemetics. H&H stable
#Neck pain
Severe in nature
No radiculopathy
History of prior cervical disc's disease and surgery
Patient had fall a week ago
CT cervical spine shows severe DJD at C5-C6 with osteophyte causing moderate spinal compression and moderate central canal stenosis and severe right neural foraminal narrowing at C5/C6 and C3/C4 prior anterior discectomy and fusion at C6/C7 noted
Continue with the pain regimen and Ortho input/epidural injections for intractable pain.
Appreciate neurosurgery input. Obtain MRI of the cervical spine as patient has relentless pain requiring narcotic pain regimen.
#Tremors-worse when he is tries to reach out for things or grab things. Noted on an outstretched hands against when they are held at the gravity. No neck tremor or lower extremity tremors. Admitting CT head shows no evidence of acute intracranial
finding. Patient is self treating himself with alcohol. Will ask neurology for medical therapy.
#Active wheezing-without short of breath or cough. Patient is an ex-smoker but currently actively vapes. Does not use inhalers at home. Uses as needed nebulizers. He has a history of pneumonia 2 months ago and was supposed to get a follow-up
chest imaging .none today. Not hypoxic.
# Bilateral opacities more pronounced on the left and may represent pneumonia-patient recently has had pneumonia and was supposed to get a follow-up imaging. When he came in he was not acting like pneumonia. No fevers no white count. Continue
with antibiotics for presumed pneumonia as per pulmonary. Discussed with pulmonary-recommends completion of antibiotics and follow-up chest x-ray and if still persistent then get an MRI.
#Hypertension-continue the home medication and follow
#Hemochromatosis-ferritin is at 45 and percent saturation is very high at 100%. 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
#CAD status post prior coronary stenting-continue with his aspirin and statins
#Hypothyroidism-continue Synthroid
Full code
Discussed with ICU team
Total time spent on today's encounter was 52 minutes which included time spent in counseling the patient/family regarding diagnosis and treatment plan as listed above, goals of care, and symptom management. Case was discussed with nursing staff,
specialists, and care coordinators/case management. All labs and imaging personally reviewed by me. Remainder the time spent in detailed review of previous records, lab data, imaging, and other medical provider documentation.
Anticipated Discharge: > 48 hours
Subjective/Interval History
-
Date of Service: February 26, 2025
Patient has come off Precedex.
He is alert and oriented to place. Apparently was still saying things on the wall. To me he was pleasant and cooperative and conversive.
Still complains of right sided neck pain and requesting evaluation and relief.
Also requesting help with his tremor in the hands.
Denies nausea vomiting.
Denies shortness of breath.
Objective Data
-
Labs:
Laboratory Results
02/26/25 02/26/25
03:12 03:13
WBC 5.4
Hgb 10.6 L
Hct 32.7 L
Plt Count 147
Sodium 138
Potassium 3.8
Chloride 111 H
Carbon Dioxide 23
BUN 8 L
Creatinine 0.6 L
Glucose 115 H
Calcium 8.8
Vital Signs:
Vital Signs
Temp Pulse Resp BP Pulse Ox
98.0 F 61 21 148/84 97
02/26/25 07:55 02/26/25 06:00 02/26/25 06:00 02/26/25 06:00 02/26/25 03:16
I&O
02/25/25 02/26/25 02/27/25
06:59 06:59 06:59
Intake Total 996.1 / 1002.8 1787.1 / 1793.8 6.7 / 6.7
Output Total 1800 / 1800 600 / 600
Balance -803.9 / -797.2 1187.1 / 1193.8 6.7 / 6.7
Physical Exam
-
General: Comfortable
HEENT: Moist Mucous Membranes
Respiratory: Clear to Auscultation and Non Labored Respirations; Negative Accessory Resp Muscle Use
Cardiac: Regular Rhythm and S1/S2
GI: Soft and Nontender
Neuro: AO x 3
Psych: Calm; Negative Confused or Agitated
Data Reviewed
-
Labs: Labs Reviewed by me
--- NOTE | 2025-02-26 11:48 | PTCARENOTE ---
Precedex weaned off this am. AAOx3 with intermittent hallucinations. This am, pt asked if picture on the wall could be taken down because it was talking to him. Hand tremor appears slightly improved from yesterday. Pt very anxious about MRI. MD
notified. See MAR for new med orders.
Refused breakfast. Refusing lunch until after MRI.
All other assessments unchanged. Pt's sister, Patricia, updated per pt request.
[2025-02-26] MEDS: XANAX 2 MG PO (14:36)
[2025-02-26] MEDS: BENADRYL 50 MG IV (14:59)
[2025-02-26] MEDS: ATIVAN 2 MG IV (15:45)
--- NOTE | 2025-02-26 15:54 | CM ---
IV/AB, off Precedex. Discharge POC: [facility] following for post acute care options for ETOH abuse.
[2025-02-26] MEDS: LUMINAL 64.8 MG PO ×2 (16:32→21:18)
--- NOTE | 2025-02-26 17:02 | PTCARENOTE ---
Very anxious all day regarding MRI. Pre medicated per order. MRI complete. Pt appears to be resting comfortably at this time. MSAS as high as 6 this am, 1 at this time. All other assessments unchanged.
[2025-02-26] MEDS: ZYLOPRIM 200 MG PO (18:25)
[2025-02-26] MEDS: COLACE 300 MG PO (19:11)
[2025-02-26] MEDS: MELATONIN 5 MG PO (21:18)
[2025-02-26] MEDS: SEROQUEL 50 MG PO (21:18)
[2025-02-26] MEDS: REMOVE NICOTINE PATCH 1 PATCH REMOVE (21:19)
--- NOTE | 2025-02-26 21:36 | PTCARENOTE ---
received pt at change of shift- ax3- slow to speak- has been off Precedex gtt since afternoon. medicated with Ativan per msas . phenobarb and pain meds given. sinus. very tremulous. ambulates to br with ass of 2- bp wnl afebrile- bed alarm on
[2025-02-27] VITALS (18 sets, daily range): BP systolic 110–169; BP diastolic 59–108; PULSE 70–71; BMI 27.4
--- NOTE | 2025-02-27 00:06 | PTCARENOTE ---
medicated with Ativan twice for msas score. pt has been sleeping and cooperative vitals wnl ambulated to bathroom with assistance of two. very unsteady on feet.
[2025-02-27] MEDS: ATIVAN 1 MG PO ×6 (02:42→11:23)
[2025-02-27] MEDS: ROXICODONE 10 MG PO ×5 (02:42→20:26)
[2025-02-27] MEDS: SYNTHROID 25 MCG PO (02:42)
--- NOTE | 2025-02-27 03:16 | PTCARENOTE ---
pt woke up pulled out two iv's- thinks hes in a boat. ativan given- see mar
[2025-02-27 03:50] LABS: Hematocrit 35.5 % (39.0-52.0); Hemoglobin 11.0 g/dL (13.0-18.0); Mean Corp Hgb Conc. 31.0 g/dL (33.0-37.0); Mean Corpuscular Volume 64.8 fL (80.0-94.0); Platelet Count 154 10^3/uL (130-400); Red Cell Dist. Width 18.0 % (11.5-14.5)
[2025-02-27] MEDS: TYLENOL 650 MG PO (04:06)
[2025-02-27 04:14] LABS: Magnesium 1.9 mg/dl (1.6-2.3)
[2025-02-27] MEDS: ATIVAN 2 MG IV ×2 (05:01→10:13)
[2025-02-27] MEDS: UNASYN IV ×3 (05:05→17:55)
--- NOTE | 2025-02-27 06:07 | PTCARENOTE ---
hallucinating seeing dogs restless msas was 11 2 mg ativan given 1 hour later msas 6 pt got another mg ativan for a total of 8 mg ativan this shift
[2025-02-27] MEDS: LUMINAL 64.8 MG PO ×3 (07:23→22:06)
[2025-02-27] MEDS: NICODERM TRANSDERMAL 21 MG TRANSDERM (07:23)
[2025-02-27] MEDS: CALAN EXTENDED RELEASE 180 MG PO (07:23)
[2025-02-27] MEDS: ZESTRIL 10 MG PO (07:24)
[2025-02-27] MEDS: PROTONIX 40 MG PO ×2 (07:24→20:26)
[2025-02-27] MEDS: HEPARIN 5000 UNITS SC ×2 (07:24→15:25)
[2025-02-27] MEDS: VITAMIN B1 100 MG PO ×2 (07:24→20:26)
[2025-02-27] MEDS: MAG-TAB SR 84 MG PO (07:25)
[2025-02-27] MEDS: FOLVITE 1 MG PO (07:25)
[2025-02-27] MEDS: LIPITOR 20 MG PO (07:25)
[2025-02-27] MEDS: TOPROL XL 100 MG PO (07:25)
[2025-02-27] MEDS: TRIAMCINOLONE ACETONIDE 0.025% CREAM 1 APPLIC TOPICAL ×4 (07:26→22:06)
--- NOTE | 2025-02-27 08:07 | PTCARENOTE ---
report received, assessments per work list. patient actively hallucinating. the art work on the wall is speaking to him and there are cats and men in the room. verbally inappropriate and grabbed this writers buttocks when assisting him to use the
urinal. c/o severe neck pain, msas per work list. see prn administration. monitor nsr with pvc,avb and bbb. right AC int leaking. attempted restart, unable. TT to VAT RN to place access. lungs with exertional wheezing,dyspnea on exertion. voiding
large amount dark yellow urine in urinal. abdomen obese, hyper active bowel sounds. bed alarm activated. safe environment maintained
--- NOTE | 2025-02-27 08:19 | W.PN.INTV ---
Today's Communication / Plan
Recommendations
Precedex now off since yesterday AM
MSAS
Up OOB as tolerated
Patient has erythematous, flaky skin around his forehead/nasolabial fold on his face and he reports a history of psoriasis � trial a low potency steroid cream (triamcinolone 0.025%)
Pain control
Outpatient repeat CXR to assure that this left-sided opacity has improved otherwise may need CT chest
Nicotine patch
MRI cervical spine showed chronic degenerative and postoperative changes of the C-spine with similar appearance compared to prior CT C-spine on 02/22/2025
Patient is stable for downgrade out of ICU to IMU. No additional recommendations at this time. In School Suspension Coordinator/Pulmonary service will now sign off. Please reconsult if there are any additional questions/concerns, or if patient's respiratory status
deteriorates.
Assessment
-
Assessment: 69-year-old male with a past medical history of chronic alcoholism, hypertension, hyperlipidemia, hemochromatosis, gout, CAD s/p coronary stents x 2, prostate cancer s/p prostatectomy, hypothyroidism, and daily vape use with nicotine
who presented with neck pain, dark tarry stool and found to be visibly tremulous in triage. He continues to drink alcohol, drinking half a gallon of premixed cocktails per day with last drink on 02/21/2025. Initially, patient was afebrile with
pulse rate 128, respiratory rate 18, BP 171/110 and he was saturating 98% on room air. Initial labs pertinent for sodium 148, serum bicarbonate level 21, glucose 160, magnesium 1.3, AST 84, and initial alcohol level: 33. Cervical spine CT
initially showed severe discogenic degenerative disease at C5-C6 with a large disc�osteophyte complex causing moderate spinal cord compression. Initial CT head on 02/22 showed no acute intracranial pathology. Patient was initially admitted to the
IMU for further treatment. Patient was stool occult negative. Patient's tremors continue to worsen with increasing alcohol withdrawal symptoms. On 02/24, patient had worsening agitation with confusion, hallucinations and this was happening despite
being on as needed Ativan and phenobarbital. Patient transferred to the ICU for Precedex infusion and In School Suspension Coordinator services consulted for additional management/recommendations.
Chronic conditions [place]: Chronic alcoholism, hypertension, hyperlipidemia, gout, CAD s/p coronary stent x 2, hypothyroidism, prostate cancer s/p prostatectomy, hemochromatosis
Impression:
#Chronic alcoholism with acute alcohol withdrawal with agitation requiring Precedex drip - now off precedex drip since yesterday AM (02/26)
#Anemia
#Black, tarry stools reported by patient
#Thrombocytopenia - now resolved
#Hyperbilirubinemia
#Nicotine use via vaping
#History of hemochromatosis (follows with [facility])
#History of ulcerative colitis
Plan:
- Patient was being managed on the floor for alcohol withdrawal when his agitation markedly worsened and he was not improving despite frequent prn ativan usage for MSAS scores
- Continue phenobarbital with taper as he clinically improves - continue IV for now until tomorrow, then can start PO as he had poor mental status on 02/24, and he is waxing and waning with his level of confusion/level of alertness; since last drink
on 02/21, should be able to start weaning down phenobarbital tomorrow without high risk of seizure
- Precedex now off as of AM of 02/26
- Continue MSAS with prn ativan
- Thiamine and folate
- Continue nicotine patch given his daily nicotine vape usage
- Continue PO meds but hold if needed if he becomes more lethargic given risk for aspiration
- Continue with PPI 40mg PO BID
- Have low suspicion for an active UGIB given that his BUN is not elevated, and H&H have remained at approximately 10.5�12 since admission (initial Hb 13 however this was likely hemoconcentrated)
- GI consulted and recommended outpatient GI follow-up. No need for EGD at this point, and GI signed off on 02/23/2025
- Trend H/H and transfuse if needed to keep Hb>7g/dL; keep plt>20k, unless there is concern for acute bleeding then keep plt>50k
- Maintain SpO2 >90-94%
- Continue aspiration precautions; keep HOB >30-45�
- Patient CXR from 02/24 shows opacification in the left middle lung field, possibly due to aspiration --> continue empiric Unasyn (started 02/24) - would plan for 5-7 days
- If patient spikes a fever then would panculture; check sputum culture if patient can produce a decent sample
- Trend WBC and monitor temperature curve
- Urine antigens for both legionella and Strep PNA are negative
- prn nebulized bronchodilators - not currently bronchospastic
- Recommend repeating CXR in 4 to 6 weeks to assess for resolution of this left-sided lung opacity
- Of note, patient has erythematous, flaky skin around his forehead/nasolabial fold on his face and he reports a history of psoriasis � started trial of low potency steroid cream (triamcinolone 0.025%)
- Maintain MAP>65
- Replete electrolytes with K>4, Mg>2
- Maintain euglycemia with goal BG 140-180
- Encourage use of incentive spirometer 10x per hour for at least 4 hrs a day
- DVT ppx: HSQ
Code status: Full code
Patient is stable for downgrade out of ICU to IMU. No additional recommendations at this time. In School Suspension Coordinator/Pulmonary service will now sign off. Thank you for allowing us to be involved in the care of this patient. Please reconsult if there are
any additional questions/concerns, or if patient's respiratory status deteriorates.
Data:
CXR 02/24/2025:
Low lung volumes.
Suspected pneumonia in the mid to lower left lung. Close follow-up radiographs recommended for reevaluation
CXR 02/25/2025: Bibasilar opacities, more pronounced on the left and which may represent pneumonia.
Total time spent today was 38 minutes for this encounter. Time includes reviewing laboratory test/imaging results, reviewing pertinent medical records, obtaining and reviewing medical history, performing an appropriate exam, ordering medications,
tests and procedures. Time also includes documentation of this encounter, coordinating patient care and communicating with other healthcare professionals. Total time does not include separately billed tests performed on this date of service.
Subjective Dataa
Subjective Data
Date of Service:
Date of Service: February 27, 2025
Chief Complaint: In School Suspension Coordinator Follow Up
Subjective:
Patient was seen and evaluated today at bedside. No acute events reported from overnight. Still having some minor hallucinations although it is improving. He currently denies chest pain, SOB, fevers or chills.
Review of Systems
General: Other (Negative unless mentioned above)
Objective Data
Data Reviewed
Vital Signs / I&O / Oxygen:
Vital Signs
Temp Pulse Resp BP Pulse Ox
97.7 F 68 26 133/79 98
02/27/25 07:46 02/27/25 07:25 02/27/25 07:00 02/27/25 07:25 02/27/25 07:30
Intake and Output
02/26/25 02/27/25 02/28/25
06:59 06:59 06:59
Intake Total 1787.1 / 1793.8 2546.7 / 2546.7 480 / 480
Output Total 600 / 600 1900 / 1900 750 / 750
Balance 1187.1 / 1193.8 646.7 / 646.7 -270 / -270
SaO2 98
Physical Exam
General: Respiratory Distress (negative), Chills (negative) and Sweats (negative)
HEENT: Normocephalic and Anicteric
Cardiovascular: S1-S2 and Peripheral Edema (negative)
Respiratory: Clear, Wheeze (negative), Crackles (negative), Rhonchi (negative), Non-Labored Respirations and Stridor (negative)
GI: Soft, Non Distended, Non Tender and Normal Bowel Sounds
Neurology: Awake, Alert, Tremors (seen at rest, mainly in RUE) and Other (Occasionally confused with hallucinations/delusions)
Skin: Warm, Dry, Cyanosis (negative), Jaundice (negative) and Other (Erythematous, flaky skin noticed on middle forehead above the nasal bridge, also on the nose/skin around the nasolabial folds)
Labs/Micro/Reports
Lab Data
02/27/25 03:13
02/26/25 03:12
Microbiology
02/24/25 18:40 Urine Legionella Urinary Antigen - Final
Negative for Legionella pneumophila Serogroup 1 antigen.
A negative result does not rule out the possiblity of
Legionella infection due to other serogroups or species of
Legionella. Clinical correlation is recommended.
02/24/25 18:40 Urine Streptococcus pneumoniae Antigen (M - Final
Negative for Streptococcus pneumoniae antigen.
A negative result does not exclude infection with
Streptococcus pneumoniae. Clinical correlation is
recommended.
--- NOTE | 2025-02-27 09:16 | W.PN.HOSP.TC ---
Addendum entered and electronically signed by Jan Macedo MD 03/02/25 13:55:
Last entry about encephalopathy is entered in error
Addendum entered and electronically signed by Jan Macedo MD 03/02/25 13:54:
Confusion with halluciations in setting of high fevers seconary to encephalopathy from sepsis
Original Note:
Today's Communication/Plan
-
Transferred to IMU
Assessment / Plan
Assessment / Plan
#Alcohol use disorder
No prior history of alcohol withdrawal
Improving. Still with some hallucinations. Off of Precedex. Continue with phenobarb taper and as needed Ativan per MSAS
His tremors sounds more benign essential tremor rather than withdrawal and would not include an MSAS score.
Patient was amenable for alcohol withdrawal resources. [facility]
#Nausea with black stools
No evidence of active GI bleed. Heme test negative twice. H&H shows anemia but stable.
He has microcytosis. His iron studies are difficult to interpret because he is got hemochromatosis and gets phlebotomy.
Appreciate GI input.
Continue with PPI and antiemetics. H&H stable
#Neck pain
Severe in nature
No radiculopathy
History of prior cervical disc's disease and surgery
Patient had fall a week ago
CT cervical spine shows severe DJD at C5-C6 with osteophyte causing moderate spinal compression and moderate central canal stenosis and severe right neural foraminal narrowing at C5/C6 and C3/C4 prior anterior discectomy and fusion at C6/C7 noted
Continue with the pain regimen and Ortho input/epidural injections for intractable pain.
Appreciate neurosurgery input. MRI of the cervical spine shows severe DJD and varying degrees of neuroforaminal stenosis more pronounced on the right at C3/C4 and C5-C6. If pain were to remain intractable we will get an epidural injection.
#Tremors-worse when he is tries to reach out for things or grab things. Noted on an outstretched hands against when they are held at the gravity. No neck tremor or lower extremity tremors. Admitting CT head shows no evidence of acute intracranial
finding. Patient is self treating himself with alcohol. Discussed with on-call neurology who recommends outpatient follow-up. Verbal discharge him on propranolol.
#Active wheezing-without short of breath or cough. Patient is an ex-smoker but currently actively vapes. Does not use inhalers at home. Uses as needed nebulizers. He has a history of pneumonia 2 months ago and was supposed to get a follow-up
chest imaging .none today. Not hypoxic.
# Bilateral opacities more pronounced on the left and may represent pneumonia-patient recently has had pneumonia and was supposed to get a follow-up imaging. When he came in he was not acting like pneumonia. No fevers no white count. Continue
with antibiotics for presumed pneumonia as per pulmonary. Discussed with pulmonary-recommends completion of antibiotics and follow-up chest x-ray and if still persistent then get an CT.
#Hypertension-continue the home medication and follow
#Hemochromatosis-ferritin is at 45 and percent saturation is very high at 100%. Patient to follow-up with primary machinist general
#CAD status post prior coronary stenting-continue with his aspirin and statins
#Hypothyroidism-continue Synthroid
Full code
Discussed with ICU team
Transfer to IMU
PT OT eval
Total time spent on today's encounter was 52 minutes which included time spent in counseling the patient/family regarding diagnosis and treatment plan as listed above, goals of care, and symptom management. Case was discussed with nursing staff,
specialists, and care coordinators/case management. All labs and imaging personally reviewed by me. Remainder the time spent in detailed review of previous records, lab data, imaging, and other medical provider documentation.
Anticipated Discharge: > 48 hours
Subjective/Interval History
-
Date of Service: February 27, 2025
Discussed with RN-last night he was confused with hallucination and also was sexually inappropriate to the staff. He got 8 mg of Ativan. This morning his alert and oriented to self only. He thought he is in [facility].
Denies any nausea or vomiting.
Denies any shortness of breath or chest pain. No fever chills.
Seems to be hallucinating. He says he sees a money to the right ready to feed him!
Objective Data
-
Labs:
Laboratory Results
02/27/25
03:13
WBC 5.8
Hgb 11.0 L
Hct 35.5 L
Plt Count 154
Vital Signs:
Vital Signs
Temp Pulse Resp BP Pulse Ox
97.7 F 68 26 133/79 98
02/27/25 07:46 02/27/25 07:25 02/27/25 07:00 02/27/25 07:25 02/27/25 07:30
I&O
02/26/25 02/27/25 02/28/25
06:59 06:59 06:59
Intake Total 1787.1 / 1793.8 2546.7 / 2546.7 480 / 480
Output Total 600 / 600 1900 / 1900 750 / 750
Balance 1187.1 / 1193.8 646.7 / 646.7 -270 / -270
Physical Exam
-
General: Comfortable
Respiratory: Clear to Auscultation (Anteriorly) and Non Labored Respirations; Negative Accessory Resp Muscle Use
Cardiac: Regular Rhythm and S1/S2
GI: Soft and Nontender
Neuro: Awake, Alert, Oriented (Self all) and Tremors (When trying to reach objects)
Psych: Calm and Confused; Negative Agitated
Data Reviewed
-
Labs: Labs Reviewed by me
--- NOTE | 2025-02-27 12:25 | PTCARENOTE ---
patient very forgetful, frequently requesting pain medications and ativan. MSAS per work list. hospitalist, pharmacist updated regarding prn usage. orders pending
[2025-02-27] MEDS: SEROQUEL 50 MG PO ×2 (12:38→20:27)
--- NOTE | 2025-02-27 13:20 | CM ---
IV/AB, Phenobarb taper. Discharge POC: [facility] assisting patient with post-acute options for SA treatment.
--- NOTE | 2025-02-27 14:52 | CON.MD ---
Consultation - Medical
-
patient seen chart reviewed. this consult done today 2024 patient is a 69 year old man w long hx etohism who came to on 6.21 w complaint of tremor neck pain and dark stool. there was concern re serious etoh wd and he was hospitalized. he
was moved to the icu for precedex to treat wd and has been intermittently agitated since then. he was rx w benzos and phenobarb and required large amounts of ativan hence tf to icu to be rx w precedes. he at this point is off precedex and was
prescribed seroquel q hs inc to bid today and he has had a prn with resolution of agitation . he is at this point rather sleepy and a poor historian although he did make a real effort to answer many of my questions but i was forced to leave out
some of the details i would normally ask. . he has been sober for at most a year this was in 2009. he drinks up to a half gallon of mixed drinks daily the last a day before admit. he does admit to hx of depression and long ago took antidep but
cannot recall which. he is not suicidal and there is no evidence of overt psychosis. 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
past psych hx see above
medical hx patient with cervical spine disease causing severe neck pain. seen by neurosurgery. hx gout hld htn cad (heart attack age 51 caused him to be disabled) hypothyroid prostate cancer hemochromatosis dx but hgb currently 11 reportedly
is rx w transfusions cat brain without new findings.
did not ask today
substance abuse see above re etoh denies other use
social resides w sis. 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
mse very sleepy slurred speech thought process generally goal oriented no psychosis. mood seems dysphoric affect constricted no si aver intell insight judgment poor
dx etoh use disorder severe etoh wd r/o depression
plan would continue w msas and phenobarbital. nursing feels that recent prn of seroquel has been the magic bullet that calmed him but given that he is so sedated at present have only ordered a prn of 25 mg seroquel.he also has a 50 mg bid order
for seroquel he is getting opiates and ativan so need to be careful re oversedation given respiratory status.he is using a fair amount of oxycodone but cervical spine disease appears quite significant. might consider cymbalta or gabapentin to help
with such pain in the near future. psych will follow .
--- NOTE | 2025-02-27 15:37 | PTCARENOTE ---
significant improvement of behaviors post seroquel. reviewed plan of care with Dr Tony. patient c/o continued neck pain. medicated with oxycodone per prn order
[2025-02-27] MEDS: SEROQUEL 25 MG PO (16:28)
[2025-02-27] MEDS: ZYLOPRIM 200 MG PO (16:28)
[2025-02-27] MEDS: MELATONIN 5 MG PO (22:06)
[2025-02-27] MEDS: COLACE 300 MG PO (22:06)
[2025-02-27] MEDS: REMOVE NICOTINE PATCH 1 PATCH REMOVE (22:07)
--- NOTE | 2025-02-27 22:29 | PTCARENOTE ---
: Patient received in bed awake. AAOx3 with some garbled/slurred speech at baseline. Verbalized 10+/10 pain to his head and neck. Plan of care for the shift reviewed with the patient. Sinus rhythm with BBB and first degree heart block.
Expiratory wheeze. SpO2 at 95% on room air. Occasional cough. +BS. Voids via the urinal. Scheduled medications administered. Patient asked this RN if I'll 'like to make extra money on the side.' When asked doing exactly what, the patient stated 'we
can talk about it later.'Laurent, RN called in to assist with remainder of the pt's care. Patient cleansed and mouthwash provided. Linens changed. The patient hallucinates stating that he sees demons going after him because he does not have his cross.
Patient oriented to reality and encouraged to pray.
[2025-02-28] VITALS (12 sets, daily range): BP systolic 113–179; BP diastolic 61–114; BMI 27.0
[2025-02-28] MEDS: ROXICODONE 10 MG PO ×4 (00:51→22:04)
--- NOTE | 2025-02-28 01:29 | PTCARENOTE ---
Patient reassessed. PRN Roxicodone administered for pain. Pt turns and repositions himself.
[2025-02-28] MEDS: ATIVAN 1 MG PO (03:16)
[2025-02-28 04:08] LABS: Hematocrit 34.6 % (39.0-52.0); Hemoglobin 10.9 g/dL (13.0-18.0); Mean Corp Hgb Conc. 31.5 g/dL (33.0-37.0); Mean Corpuscular Volume 63.6 fL (80.0-94.0); Platelet Count 149 10^3/uL (130-400); Red Cell Dist. Width 18.3 % (11.5-14.5)
[2025-02-28 04:24] LABS: ALT (SGPT) 26 U/L (0-50); AST (SGOT) 34 U/L (17-59); Albumin 3.7 g/dl (3.5-5.0); Alkaline Phosphatase 119 U/L (38-126); Blood Urea Nitrogen 4 mg/dl (9-20); Calcium 8.9 mg/dl (8.4-10.2); Carbon Dioxide 24 mmol/L (22-30); Chloride 109 mmol/L (98-107); Estimated Creatinine Clearance > 125 ml/min; Glucose 86 mg/dl (70-99); Magnesium 2.0 mg/dl (1.6-2.3); Potassium 4.0 mmol/L (3.5-5.1); Sodium 139 mmol/L (135-145); Total Protein 6.5 g/dl (6.3-8.2); eGFR > 60.00
[2025-02-28] MEDS: SYNTHROID 25 MCG PO (05:05)
[2025-02-28] MEDS: UNASYN IV ×5 (05:05→23:51)
[2025-02-28] MEDS: NICODERM TRANSDERMAL 21 MG TRANSDERM (07:15)
[2025-02-28] MEDS: CALAN EXTENDED RELEASE 180 MG PO (07:16)
[2025-02-28] MEDS: PROTONIX 40 MG PO ×2 (07:17→19:48)
[2025-02-28] MEDS: ZESTRIL 10 MG PO (07:17)
[2025-02-28] MEDS: FOLVITE 1 MG PO (07:18)
[2025-02-28] MEDS: LUMINAL 64.8 MG PO (07:19)
[2025-02-28] MEDS: VITAMIN B1 100 MG PO ×2 (07:20→19:48)
[2025-02-28] MEDS: MAG-TAB SR 84 MG PO (07:20)
[2025-02-28] MEDS: TOPROL XL 100 MG PO (07:20)
[2025-02-28] MEDS: LIPITOR 20 MG PO (07:20)
[2025-02-28] MEDS: SEROQUEL 50 MG PO ×2 (07:21→19:48)
[2025-02-28] MEDS: TRIAMCINOLONE ACETONIDE 0.025% CREAM 1 APPLIC TOPICAL ×4 (07:21→22:03)
[2025-02-28] MEDS: HEPARIN 5000 UNITS SC ×4 (07:21→23:50)
--- NOTE | 2025-02-28 08:22 | SUR.PHASEI ---
Received pt awake and alert.Speech is garbled as pt is edentulous.+VILLATORO.Pt is impulsive,c/o hallucinations seeing roaches and a black dog in the room.Assisted pt bathroom 1 person moderate assist,refuses to use walker.Gait is unsteady.MSAS is
ongoing.Occasionally c/o chronic neck pain.SR with BBB,1st AVB and occasional PVC noted.Coarse breath sounds throughout.POX 96% on RA.Appetite excellent.No BM.Incontinent and voiding yellow urine.Plan of care discussed with pt.
--- NOTE | 2025-02-28 08:32 | W.PN.HOSP.TC ---
Today's Communication/Plan
-
consider stopping ABX--no fever, no white count, not hypoxic, no cough...
apprec all consultants' input
cont to tweak meds
agree with PT/OT
pt referred to [facility] but might need SNF?
Assessment / Plan
Assessment / Plan
pt is a 69 year old male
acute alcohol withdrawal--Alcohol use disorder without previous history of withdrawal--still hallucinating, BP still high--on MSAS, Seroquel, oxy for neck pain--finished phenobarb taper--no tremors to my eye--claims he wants help for
alcohol--referred to [facility]
Nausea with black stools--No evidence of active GI bleed--Heme test negative twice--appears to have anemia of chronic disease --iron studies are difficult to interpret because he is got hemochromatosis and gets phlebotomy--apprec GI--cont
PPI/antiemetics
Neck pain--Severe in nature--pt did not c/o to me about it--prior h/o of cervical disc disease and surgery--has chronic falls--? whether this is contributing along with alcohol--CT cervical spine shows severe DJD at C5-C6 with osteophyte causing
moderate spinal compression and moderate central canal stenosis and severe right neural foraminal narrowing at C5/C6 and C3/C4 prior anterior discectomy and fusion at C6/C7 noted and MRI same--apprec neurosurg input--CT/MRI reviewed--may need
rpidural
Tremors--worse when he is tries to reach out for things or grab things--? intentional?--Admitting CT head shows no evidence of acute intracranial finding--Patient is self treating himself with alcohol--would discharge him on propranolol.
Active wheezing---resolved--without short of breath or cough--Patient is an ex-smoker but currently actively vapes-- Uses as needed nebulizers--He has a history of pneumonia 2 months ago and was supposed to get a follow-up chest imaging--Not
hypoxic--Bilateral opacities more pronounced on the left and may represent pneumonia--on unasyn per pulm--started 02/24--on room air--will stop, although Dr. Macedo discussed with pulmonary who recommends completion of antibiotics and follow-up chest
x-ray and if still persistent then get an CT.
Essential Hypertension-cont home meds as able
Hemochromatosis--ferritin is at 45 and percent saturation is very high at 100%--Patient to follow-up with primary land developer
CAD status post prior coronary stenting--continue with his aspirin and statins
Hypothyroidism--continue Synthroid
DVT proph--SC heparin
code status--Full code
Anticipated Discharge: > 48 hours
Subjective/Interval History
-
Date of Service: February 28, 2025
pt awake but not very alert--trying to drink his closed apple juice container
nursing reports pt hallucinating with seeing roaches and a black dog
Objective Data
-
Labs:
Laboratory Results
02/28/25
03:37
WBC 5.4
Hgb 10.9 L
Hct 34.6 L
Plt Count 149
Sodium 139
Potassium 4.0
Chloride 109 H
Carbon Dioxide 24
BUN 4 L
Creatinine 0.6 L
Glucose 86
Calcium 8.9
Total Bilirubin 0.9
AST 34
ALT 26
Alkaline Phosphatase 119
Vital Signs:
max temp for 24 hours
02/27/25
12:00
Temp 98.5 F
Vital Signs
Temp Pulse Resp BP Pulse Ox
97.6 F 73 20 168/97 96
02/28/25 07:24 02/28/25 07:20 02/28/25 07:16 02/28/25 07:20 02/28/25 07:49
I&O
02/27/25 02/28/25 03/01/25
06:59 06:59 06:59
Intake Total 2546.7 / 2546.7 2039
Output Total 1899
Balance 646.7 / 646.7 290 / 290
Review of Systems
-
Unable to obtain full review of systems at this time due to: Acuity
Physical Exam
-
General: Well Developed, Well Nourished and No Apparent Distress
HEENT: Normocephalic and Atraumatic
Respiratory: Clear to Auscultation; Negative Wheezes or Rhonchi
Cardiac: Regular Rhythm and S1/S2; Negative Murmur
GI: Soft, Nontender, Nondistended and Normal Bowel Sounds
Musculoskeletal: No Clubbing, No Cyanosis and No Edema
Neuro: Awake; Negative Alert (seems sleepy )
Psych: Calm
--- NOTE | 2025-02-28 12:24 | PTCARENOTE ---
Pt assessed.No change in assessment noted.Pt is more calm.c/o right ear pain.Requested and received Oxycodone for pain.
--- NOTE | 2025-02-28 13:19 | PTCARENOTE ---
Pt asked to speak to a molasses feed mixer. made aware and is in progress of contacting a molasses feed mixer.
[2025-02-28] MEDS: LUMINAL 32.4 MG PO ×2 (15:32→22:04)
--- NOTE | 2025-02-28 15:39 | CHAP ---
Mr. Maravilla shared thoughts and feelings, mentioned 'seeing demons.' We talked about his chelle in God; he expressed a desire for a crucifix. He welcomed prayer. Emotional and spiritual support provided, along with a wooden cross to hold, a rosary,
and a prayer blanket. His name has been added to our list of [facility] patients, with an indication that if a oil and gas exploration technician will be coming, he would appreciate a visit. Pastoral Care remains available.
--- NOTE | 2025-02-28 15:58 | PTCARENOTE ---
Pt assessed.No change in assessment noted.Pt assisted oob to chair with chair alarm with 2 person moderate assist.
[2025-02-28] MEDS: ZYLOPRIM 200 MG PO (18:16)
--- NOTE | 2025-02-28 19:50 | PTCARENOTE ---
handoff report received from off going RN. Patient received in bed awake and oriented x3. Disoriented to time. Patient rang to get OOB to the rest room. Patient assisted up x2 person and a walker. Very unstable on his feet and leaning on staff
mainly for support. Explained to the patient that he is unstable and should utilize the urinal at the side of the bed to urinate. Patient is against urinal but stated that he 'will try.' Patient assisted back to the bed. PAtient states concern
regarding homelessness as his sister, whom he is staying with is selling her home. Per the patient, the sister wants him out and does not have a place to return to post discharge. Pt verbalized wanting help with his alcohol and would need a place to
stay. The patient also stated that he falls a lot at home and sometimes has head bleed. All in all, the patient verbalizes wanting help so that he is not homeless. Sinus rhythm on the monitor with BBB and first degree heart block. Expiratory
wheezes. SpO2 at 96% on room air. +BS. Patient completed mouth care in the bathroom. Pt asked for pain medication for his neck when it's due. Call kapoor is within reach. Bed alarm in use. Personal belongings are within reach.
[2025-02-28] MEDS: DUONEB 3 ML INH (21:34)
[2025-02-28] MEDS: MELATONIN 5 MG PO (22:04)
[2025-02-28] MEDS: COLACE 300 MG PO (22:04)
[2025-02-28] MEDS: REMOVE NICOTINE PATCH 1 PATCH REMOVE (22:09)
[2025-03-01] VITALS (9 sets, daily range): BP systolic 126–169; BP diastolic 65–107; BMI 27.0
[2025-03-01] MEDS: SEROQUEL 25 MG PO (00:30)
--- NOTE | 2025-03-01 00:35 | PTCARENOTE ---
Patient reassessed. Assisted to urinate sitting up at the side of the bed. Pt's agitated stating that he cannot sleep and asking for Seroquel or Ativan. Patient states that he takes Seroquel 150 mg at home. PRN Seroquel administered. VSS. Safety
measures remain in use.
[2025-03-01] MEDS: ROXICODONE 10 MG PO ×5 (03:34→21:00)
[2025-03-01 04:10] LABS: Hematocrit 34.2 % (39.0-52.0); Hemoglobin 10.7 g/dL (13.0-18.0); Mean Corp Hgb Conc. 31.3 g/dL (33.0-37.0); Mean Corpuscular Volume 64.2 fL (80.0-94.0); Platelet Count 157 10^3/uL (130-400); Red Cell Dist. Width 18.0 % (11.5-14.5)
[2025-03-01 04:38] LABS: ALT (SGPT) 22 U/L (0-50); AST (SGOT) 30 U/L (17-59); Albumin 3.7 g/dl (3.5-5.0); Alkaline Phosphatase 105 U/L (38-126); Blood Urea Nitrogen 8 mg/dl (9-20); Calcium 9.1 mg/dl (8.4-10.2); Carbon Dioxide 22 mmol/L (22-30); Chloride 109 mmol/L (98-107); Estimated Creatinine Clearance > 125 ml/min; Glucose 96 mg/dl (70-99); Magnesium 1.9 mg/dl (1.6-2.3); Potassium 4.1 mmol/L (3.5-5.1); Sodium 139 mmol/L (135-145); Total Protein 6.1 g/dl (6.3-8.2); eGFR > 60.00
[2025-03-01 05:29] LABS: Vitamin B12 460 pg/ml (239-931)
[2025-03-01] MEDS: SYNTHROID 25 MCG PO (06:13)
[2025-03-01] MEDS: UNASYN IV ×4 (06:14→23:10)
[2025-03-01] MEDS: PROTONIX 40 MG PO ×2 (07:56→21:00)
[2025-03-01] MEDS: CALAN EXTENDED RELEASE 180 MG PO (07:56)
[2025-03-01] MEDS: SEROQUEL 50 MG PO ×2 (07:56→16:46)
[2025-03-01] MEDS: LIPITOR 20 MG PO (07:57)
[2025-03-01] MEDS: TOPROL XL 100 MG PO (07:57)
[2025-03-01] MEDS: LUMINAL 32.4 MG PO ×3 (07:57→23:07)
[2025-03-01] MEDS: VITAMIN B1 100 MG PO ×2 (07:57→21:00)
[2025-03-01] MEDS: MAG-TAB SR 84 MG PO (07:58)
[2025-03-01] MEDS: HEPARIN 5000 UNITS SC ×3 (07:58→23:08)
[2025-03-01] MEDS: FOLVITE 1 MG PO (07:58)
[2025-03-01] MEDS: NICODERM TRANSDERMAL 21 MG TRANSDERM (07:58)
[2025-03-01] MEDS: ZESTRIL 10 MG PO (07:59)
[2025-03-01] MEDS: TRIAMCINOLONE ACETONIDE 0.025% CREAM 1 APPLIC TOPICAL ×4 (07:59→23:08)
--- NOTE | 2025-03-01 08:27 | W.PN.HOSP.TC ---
Today's Communication/Plan
-
downgrade from IMU to tele
PT/OT
IR consult for cervical epidural tomorrow
await psych for med management
Assessment / Plan
Assessment / Plan
pt is a 69 year old male
acute alcohol withdrawal--Alcohol use disorder without previous history of withdrawal--was hallucinating, BP still high--on MSAS, Seroquel, oxy for neck pain--finished phenobarb taper--now with intentional tremors today--claims he wants help for
alcohol--referred to [facility]
Nausea with black stools--No evidence of active GI bleed--Heme test negative twice--appears to have anemia of chronic disease --iron studies are difficult to interpret because he has hemochromatosis and gets phlebotomy--apprec GI--cont
PPI/antiemetics
Neck pain--Severe in nature---prior h/o of cervical disc disease and surgery--has chronic falls--? 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
moderate central canal stenosis and severe right neural foraminal narrowing at C5/C6 and C3/C4 prior anterior discectomy and fusion at C6/C7 noted and MRI same--apprec neurosurg input, not surgical--CT/MRI reviewed--consulted IR for epidural for
tomorrow 03/02/25
Tremors-- intentional--Admitting CT head shows no evidence of acute intracranial finding--Patient is likely self treating with alcohol--on Toprol XL but propranolol might be better....
Active wheezing---without short of breath or cough--Patient is an ex-smoker but currently actively vapes-- Uses as needed nebulizers--He has a history of pneumonia 2 months ago and was supposed to get a follow-up chest imaging--Not
hypoxic--Bilateral opacities more pronounced on the left and may represent pneumonia--on unasyn per pulm--started 02/24--on room air--will stop, although Dr. Macedo discussed with pulmonary who recommends completion of antibiotics and follow-up chest
x-ray and if still persistent then get CT.
Essential Hypertension-cont home meds as able
Hemochromatosis--ferritin is at 45 and percent saturation is very high at 100%--Patient to follow-up with primary senior network engineer
CAD status post prior coronary stenting--continue with his aspirin and statins
Hypothyroidism--continue Synthroid
DVT proph--SC heparin
code status--Full code
can likely downgrade from IMU
Anticipated Discharge: > 48 hours
Subjective/Interval History
-
Date of Service: March 01, 2025
pt c/o neck pain--says he takes 10 mg oxycodone 4x/day
also says he takes 50 mg seroquel 3x/day with one of them at night
says since we changed his meds he is more anxious
Objective Data
-
Labs:
Laboratory Results
03/01/25
03:59
WBC 5.6
Hgb 10.7 L
Hct 34.2 L
Plt Count 157
Sodium 139
Potassium 4.1
Chloride 109 H
Carbon Dioxide 22
BUN 8 L
Creatinine 0.6 L
Glucose 96
Calcium 9.1
Total Bilirubin 0.8
AST 30
ALT 22
Alkaline Phosphatase 105
Vital Signs:
max temp for 24 hours
02/28/25
15:10
Temp 98.8 F
Vital Signs
Temp Pulse Resp BP Pulse Ox
98.2 F 72 15 169/100 94
03/01/25 03:07 03/01/25 07:59 02/28/25 21:38 03/01/25 07:59 02/28/25 21:38
I&O
02/28/25 03/01/25 03/02/25
06:59 06:59 06:59
Intake Total 2039 2580 / 2580
Output Total 1750 / 1750 790 / 790
Balance 290 / 290 1790 / 179
Review of Systems
-
All other systems: Reviewed and negative
Musculoskeletal: Reports Other (neck pain)
Psych: Reports Anxious
Physical Exam
-
General: Well Developed, Well Nourished and No Apparent Distress
HEENT: Normocephalic and Atraumatic; Negative Oxygen
Respiratory: Wheezes (faint throughout)
Cardiac: Regular Rhythm and S1/S2; Negative Murmur
GI: Soft, Nontender, Nondistended and Normal Bowel Sounds
Musculoskeletal: No Clubbing, No Cyanosis and No Edema
Neuro: Awake and Tremors (today seem more intentional)
Psych: Anxious
--- NOTE | 2025-03-01 09:02 | CM ---
chart reviewed: Anticipated Discharge: > 48 hour
PT recommended SNF; [facility] involved
Discharge plan pending: SNF vs. Substance Abuse Rehab facility when medically stable. Case Management will monitor and support when disposition plan is determined
[2025-03-01] MEDS: LIDOCAINE 4% PATCH 1 PATCH TOPICAL (12:01)
--- NOTE | 2025-03-01 15:28 | W.PN.UPDATE ---
Update Note
Progress Note Update
Patient seen by me on 03/01/2025 from 3:10pm-3:28pm
Psychiatry follow up. Patient states he is concerned bc he typically takes seroquel 50mg TID and 100mg HS prescribed for several years by his PCP. He states this helps his anxiety and sleep. We discussed option to change seroquel dosing to 50mg BID
and 100mg HS to see how he responds. He is agreeable. He states he would like to attend an inpatient D&A rehab from here.
MSE- good eye contact, fluent speech. anxious mood/affect. goal directed. denies SI/HI/AVH. no delusions. limited I/J
A/P- 69 yo male with etoh use disorder severe and etoh withdrawal, improved. Continue with MSAS and phenobarbital. Change seroquel order to 50mg BID and 100mg HS. Monitor sleep and anxiety. Plan is for inpatient rehab via [facility].
[2025-03-01] MEDS: ZYLOPRIM 200 MG PO (18:04)
[2025-03-01] MEDS: REMOVE LIDOCAINE PATCH 1 PATCH REMOVE (20:55)
--- NOTE | 2025-03-01 21:19 | PTCARENOTE ---
no changes in pt assessment from previously documented shift assessment. VSS, POC discussed, report called to 2N- pt for tx to Rm 2122.
--- NOTE | 2025-03-01 22:23 | PTCARENOTE ---
Pt arrived to floor via Wheelchair as transfer from ICU. Pt able to stand and take few steps to bed with assist x2, pt very weak and tremulous. Pt AAOx3, forgetful at times. MSAS as documented. Bed alarm on bed for pt safety. HR in the 70's in NSR
on the monitor with BBB. Lungs dec@ bases with scattered Ex wheezes T/O, pox 99% on RA. Hypo bowel, round obese abd. Pt using urinal with assistance when needed. Palpable peripheral pulses present. Psoriasis rash present, cream applied as ordered.
Right arm #22 int capped. Call kapoor in reach. Will continue to monitor.
[2025-03-01] MEDS: COLACE 300 MG PO (23:06)
[2025-03-01] MEDS: SEROQUEL 100 MG PO (23:07)
[2025-03-01] MEDS: MELATONIN 5 MG PO (23:07)
[2025-03-01] MEDS: REMOVE NICOTINE PATCH 1 PATCH REMOVE (23:07)
[2025-03-02] VITALS (7 sets, daily range): BP systolic 114–162; BP diastolic 76–99; PULSE 76–79; O2SAT 96
[2025-03-02] MEDS: ROXICODONE 10 MG PO ×6 (01:25→21:56)
[2025-03-02] MEDS: UNASYN IV ×2 (05:26→11:14)
[2025-03-02] MEDS: SYNTHROID 25 MCG PO (05:26)
--- NOTE | 2025-03-02 05:43 | PTCARENOTE ---
Pt awake T/O the night, pt unable to sleep. Washed up this am. PRN pain medication administered as ordered for neck pain. No other changes in assessment noted at this time. Will continue to monitor.
[2025-03-02 07:40] LABS: Hematocrit 34.1 % (39.0-52.0); Hemoglobin 10.7 g/dL (13.0-18.0); Mean Corp Hgb Conc. 31.4 g/dL (33.0-37.0); Mean Corpuscular Volume 64.3 fL (80.0-94.0); Platelet Count 158 10^3/uL (130-400); Red Cell Dist. Width 18.4 % (11.5-14.5)
[2025-03-02] MEDS: LIDOCAINE 4% PATCH 1 PATCH TOPICAL (09:07)
[2025-03-02] MEDS: TOPROL XL 100 MG PO (09:10)
[2025-03-02] MEDS: NICODERM TRANSDERMAL 21 MG TRANSDERM (09:10)
[2025-03-02] MEDS: SEROQUEL 50 MG PO ×2 (09:11→13:42)
[2025-03-02] MEDS: CALAN EXTENDED RELEASE 180 MG PO (09:11)
[2025-03-02] MEDS: LUMINAL 32.4 MG PO (09:11)
[2025-03-02] MEDS: PROTONIX 40 MG PO ×2 (09:12→20:44)
[2025-03-02] MEDS: VITAMIN B1 100 MG PO ×2 (09:12→20:44)
[2025-03-02] MEDS: ZESTRIL 10 MG PO (09:12)
[2025-03-02] MEDS: HEPARIN 5000 UNITS SC ×2 (09:12→17:06)
[2025-03-02] MEDS: FOLVITE 1 MG PO (09:12)
[2025-03-02] MEDS: LIPITOR 20 MG PO (09:12)
[2025-03-02] MEDS: MAG-TAB SR 84 MG PO (09:12)
[2025-03-02] MEDS: TRIAMCINOLONE ACETONIDE 0.025% CREAM 1 APPLIC TOPICAL ×3 (09:17→17:44)
[2025-03-02 09:23] LABS: ALT (SGPT) 23 U/L (0-50); AST (SGOT) 29 U/L (17-59); Albumin 3.7 g/dl (3.5-5.0); Alkaline Phosphatase 112 U/L (38-126); Blood Urea Nitrogen 8 mg/dl (9-20); Calcium 9.2 mg/dl (8.4-10.2); Carbon Dioxide 23 mmol/L (22-30); Chloride 110 mmol/L (98-107); Estimated Creatinine Clearance 108 ml/min; Glucose 99 mg/dl (70-99); Magnesium 1.8 mg/dl (1.6-2.3); Potassium 3.8 mmol/L (3.5-5.1); Sodium 139 mmol/L (135-145); Total Protein 6.4 g/dl (6.3-8.2); eGFR > 60.00
[2025-03-02] MEDS: DUONEB 3 ML INH (10:00)
--- NOTE | 2025-03-02 14:23 | CM ---
Patient seen at bedside with physicians on 2 north. Patient states that he does want to go to treatment center and mentioned [facility] or [facility]. CM spoke with [facility] enrollment representative and will continue to provide updates. Patient for procedure
tomorrow and possibly per physician may be ready for transfer post procedure. CM will continue to follow for discharge planning needs.
Plan; facility for treatment; [facility]
--- NOTE | 2025-03-02 14:27 | W.PN.HOSP.TC ---
Addendum entered and electronically signed by Gisella Alvarez MD 03/02/25 15:04:
I saw and evaluated the patient independently. I reviewed the resident�s note and agree with findings and plan as documented by Dr. Capellan.
GENERAL: well developed, well nourished, male in no apparent distress
HEENT: NC/AT
HEART: regular rate and rhythm, +S1, +S2
LUNGS : clear to auscultation bilaterally
ABDOM: soft, nontender, nondistended, + bowel sounds
EXT: no cyanosis, clubbing, or edema
NEUROLOGIC: essential tremor of right hand
acute alcohol withdrawal--Alcohol use disorder without previous history of withdrawal--was hallucinating, seems improved--on MSAS, Seroquel, oxy for neck pain--finished phenobarb taper- he wants help for alcohol--referred to [facility] [place], awaiting
referrals
Nausea with black stools--No evidence of active GI bleed--Heme test negative twice--appears to have anemia of chronic disease --iron studies are difficult to interpret because he has hemochromatosis and gets phlebotomy--apprec GI--cont
PPI/antiemetics
Neck pain--Severe in nature---prior h/o of cervical disc disease and surgery--has chronic falls--? 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
moderate central canal stenosis and severe right neural foraminal narrowing at C5/C6 and C3/C4 prior anterior discectomy and fusion at C6/C7 noted and MRI same--apprec neurosurg input, not surgical--CT/MRI reviewed-- IR for epidural for tomorrow
03/03/25
Tremors-- intentional--Admitting CT head shows no evidence of acute intracranial finding--Patient is likely self treating with alcohol--on Toprol XL but propranolol might be better....
Active wheezing---without short of breath or cough--Patient is an ex-smoker but currently actively vapes-- Uses as needed nebulizers--He has a history of pneumonia 2 months ago and was supposed to get a follow-up chest imaging--Not
hypoxic--Bilateral opacities more pronounced on the left and may represent pneumonia--on unasyn per pulm--started 02/24, finish course--on room air-- Dr. Macedo discussed with pulmonary who recommends completion of antibiotics and follow-up chest
x-ray and if still persistent then get CT.
Essential Hypertension-cont home meds as able
Hemochromatosis--ferritin is at 45 and percent saturation is very high at 100%--Patient to follow-up with primary russian teacher
CAD status post prior coronary stenting--continue with his aspirin and statins
Hypothyroidism--continue Synthroid
DVT proph--SC heparin
code status--Full code
Original Note:
Today's Communication/Plan
-
Cervical JUAN DANIEL tomorrow. Heparin held from midnight 03/03 until end of procedure.
Awaiting psych correspondence for medication recommendations
Assessment / Plan
Assessment / Plan
Assessment
This is a 69 y/o male with pmhx of chronic alcohol dependency, hypothyroidism, hypertension, CAD and hx of Prostate Cancer who presented to the ED on 02/22/2025 with an uncontrolled tremor and right sided neck pain that had been ongoing for 5 days in
the setting of acute alcohol withdrawal, with his last drink being on 02/21/2025
Plan
Acute Alcohol Withdrawal
-Patient amenable to outpatient rehab. Ann has seen him today, and will follow up again tomorrow
-Will discuss medication recommendations with psych for sleep
-Continue melatonin 5mg PO once daily,
Neck Pain
-Cervical JUAN DANIEL scheduled for tomorrow. Morning dose of heparin will be held in anticipation of procedure
-Continue lidocaine 4% patch, acetaminophen 650mg PO Q4H PRN for pain, Oxycodone 10mg PO Q4H PRN for pain
Essential Tremors
-Encouraged out patient follow up with neurologist
Black Stools
-No indication of active GI bleed.
CAD status post stent in 2013
-Continue home meds
Essential Hypertension
-Continue home meds
Hypothyroidism
-Continue home meds
Hemochromatosis
-Encouraged follow up with russian teacher
DVT proph--SC heparin [AM dose on 03/03 being held in anticipation of Cervical JUAN DANIEL]
Code status--Full code
Anticipated Discharge: > 48 hours
Subjective/Interval History
-
Date of Service: March 02, 2025
Patient doing well today. He reports no hallucinations, and recognizes that yesterday he did experience hallucinations. His tremors are also decreased from yesterday, and have returned to a baseline for him. His primary concerns are persistent right
sided neck pain and poor sleep, which he reported as less than 40 minutes in total for the night prior. Neck pain is constant, 8/10 pain worsened with movement. He reports receiving epidurals for this in the past, and is willing to try again. He
does not believe his poor sleep is due to his neck pain, but rather was the source for him to originally begin consuming alcohol. He reports no improvement with sleep with current dose of Seroquel.
Objective Data
-
Labs:
Laboratory Results
03/02/25
07:18
WBC 5.1
Hgb 10.7 L
Hct 34.1 L
Plt Count 158
Sodium 139
Potassium 3.8
Chloride 110 H
Carbon Dioxide 23
BUN 8 L
Creatinine 0.7
Glucose 99
Calcium 9.2
Total Bilirubin 0.7
AST 29
ALT 23
Alkaline Phosphatase 112
Vital Signs:
Vital Signs
Temp Pulse Resp BP Pulse Ox
97.9 F 78 16 123/80 95
03/02/25 11:00 03/02/25 11:00 03/02/25 11:00 03/02/25 11:00 03/02/25 11:00
I&O
03/01/25 03/02/25 03/03/25
06:59 06:59 06:59
Intake Total 2580 / 2580 650 / 650
Output Total 790 / 790 2099 / 2099
Balance 1790 / 1790 -1450 / -1450
Review of Systems
-
History Source: Patient
Constitutional: Reports No Symptoms
Respiratory: Reports Wheezing
Cardiac: Reports No Symptoms
Abdomen/GI: Reports No Symptoms
Neuro: Reports Tremors
Physical Exam
-
General: Well Developed, Well Nourished, No Apparent Distress and Comfortable
HEENT: Normocephalic
Respiratory: Other (Left middle and lower lobe could not be auscultated due to )
Cardiac: Regular Rhythm and S1/S2
Skin: Warm and Dry
Neuro: Awake, Alert, Oriented and Tremors
Psych: Calm
[2025-03-02] MEDS: TYLENOL 650 MG PO (15:07)
[2025-03-02] MEDS: ZYLOPRIM 200 MG PO (17:06)
[2025-03-02] MEDS: REMOVE LIDOCAINE PATCH REMOVE (20:43)
[2025-03-02] MEDS: MELATONIN 5 MG PO (23:02)
[2025-03-02] MEDS: REMOVE NICOTINE PATCH 1 PATCH REMOVE (23:02)
[2025-03-02] MEDS: SENOKOT 8.6 MG PO (23:02)
[2025-03-02] MEDS: COLACE 300 MG PO (23:02)
[2025-03-02] MEDS: SEROQUEL 100 MG PO (23:03)
[2025-03-02] MEDS: TRIAMCINOLONE ACETONIDE 0.025% CREAM TOPICAL (23:03)
[2025-03-03] VITALS (8 sets, daily range): BP systolic 77–162; BP diastolic 80–98
[2025-03-03] MEDS: TRIAMCINOLONE ACETONIDE 0.025% CREAM TOPICAL ×3 (01:10→22:54)
[2025-03-03] MEDS: ROXICODONE 10 MG PO ×5 (03:05→21:50)
[2025-03-03] MEDS: SYNTHROID 25 MCG PO (04:31)
[2025-03-03 07:47] LABS: Hematocrit 37.4 % (39.0-52.0); Hemoglobin 11.5 g/dL (13.0-18.0); Mean Corp Hgb Conc. 30.7 g/dL (33.0-37.0); Mean Corpuscular Volume 65.6 fL (80.0-94.0); Red Cell Dist. Width 18.7 % (11.5-14.5)
[2025-03-03 07:54] LABS: INR 1.03; PT 13.8 Sec (11.4-14.6)
[2025-03-03] MEDS: LIDOCAINE 4% PATCH TOPICAL (08:36)
[2025-03-03] MEDS: SENOKOT PO (08:38)
[2025-03-03] MEDS: PROTONIX 40 MG PO ×2 (08:39→19:44)
[2025-03-03] MEDS: LIPITOR 20 MG PO (08:39)
[2025-03-03] MEDS: VITAMIN B1 100 MG PO ×2 (08:39→19:45)
[2025-03-03] MEDS: SEROQUEL 50 MG PO ×2 (08:40→15:16)
[2025-03-03] MEDS: TRIAMCINOLONE ACETONIDE 0.025% CREAM 1 APPLIC TOPICAL ×2 (08:40→18:21)
[2025-03-03 08:41] LABS: ALT (SGPT) 24 U/L (0-50); AST (SGOT) 32 U/L (17-59); Albumin 4.2 g/dl (3.5-5.0); Alkaline Phosphatase 106 U/L (38-126); Blood Urea Nitrogen 10 mg/dl (9-20); Calcium 9.4 mg/dl (8.4-10.2); Carbon Dioxide 23 mmol/L (22-30); Chloride 108 mmol/L (98-107); Estimated Creatinine Clearance 108 ml/min; Glucose 94 mg/dl (70-99); Potassium 4.1 mmol/L (3.5-5.1); Sodium 140 mmol/L (135-145); Total Protein 7.1 g/dl (6.3-8.2); eGFR > 60.00
[2025-03-03] MEDS: NICODERM TRANSDERMAL 21 MG TRANSDERM (08:41)
[2025-03-03] MEDS: FOLVITE 1 MG PO (08:41)
[2025-03-03] MEDS: MAG-TAB SR 84 MG PO (08:41)
[2025-03-03] MEDS: CALAN EXTENDED RELEASE 180 MG PO (08:43)
[2025-03-03] MEDS: TOPROL XL 100 MG PO (08:44)
[2025-03-03] MEDS: ZESTRIL 10 MG PO (08:44)
[2025-03-03 08:56] LABS: Platelet Count 197 10^3/uL (130-400)
[2025-03-03] MEDS: DUONEB 3 ML INH (09:13)
--- NOTE | 2025-03-03 10:54 | W.PN.HOSP.TC ---
Addendum entered and electronically signed by Gisella Alvarez MD 03/03/25 14:15:
I saw and evaluated the patient independently. I reviewed the resident�s note and agree with findings and plan as documented by Dr. Capellan.
GENERAL: well developed, well nourished, male in no apparent distress
HEENT: NC/AT
HEART: regular rate and rhythm, +S1, +S2
LUNGS : clear to auscultation bilaterally
ABDOM: soft, nontender, nondistended, + bowel sounds
EXT: no cyanosis, clubbing, or edema
NEUROLOGIC: essential tremor of right hand
acute alcohol withdrawal--Alcohol use disorder without previous history of withdrawal--was hallucinating, seems improved--on MSAS, Seroquel, oxy for neck pain--finished phenobarb taper- he wants help for alcohol--referred to [facility], awaiting
referrals
Nausea with black stools--No evidence of active GI bleed--Heme test negative twice--appears to have anemia of chronic disease --iron studies are difficult to interpret because he has hemochromatosis and gets phlebotomy--apprec GI--cont
PPI/antiemetics
Neck pain--Severe in nature---prior h/o of cervical disc disease and surgery--has chronic falls--? 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
moderate central canal stenosis and severe right neural foraminal narrowing at C5/C6 and C3/C4 prior anterior discectomy and fusion at C6/C7 noted and MRI same--apprec neurosurg input, not surgical--CT/MRI reviewed-- IR for epidural 03/03/25
constipation -- no BM for 8 days per patient--start milk and molasses enema--bowel regimen
Tremors-- intentional--Admitting CT head shows no evidence of acute intracranial finding--Patient is likely self treating with alcohol--on Toprol XL but propranolol might be better....
Active wheezing---without short of breath or cough--Patient is an ex-smoker but currently actively vapes-- Uses as needed nebulizers--He has a history of pneumonia 2 months ago and was supposed to get a follow-up chest imaging--Not
hypoxic--Bilateral opacities more pronounced on the left and may represent pneumonia--on unasyn per pulm--started 02/24, finish course--on room air-- Dr. Macedo discussed with pulmonary who recommends completion of antibiotics and follow-up chest
x-ray and if still persistent then get CT.
Essential Hypertension-cont home meds as able
Hemochromatosis--ferritin is at 45 and percent saturation is very high at 100%--Patient to follow-up with primary cementer
CAD status post prior coronary stenting--continue with his aspirin and statins
Hypothyroidism--continue Synthroid
DVT proph--SC heparin
code status--Full code
Original Note:
Today's Communication/Plan
-
Milk and Molasses enema for constipation
Cervical JUAN DANIEL scheduled for today
Assessment / Plan
Assessment / Plan
Assessment
This is a 69 y/o male with pmhx of chronic alcohol dependency, hypothyroidism, hypertension, CAD and hx of Prostate Cancer who presented to the ED on 02/22/2025 with an uncontrolled tremor and right sided neck pain that had been ongoing for 5 days in
the setting of acute alcohol withdrawal, with his last drink being on 02/21/2025.
Plan
Acute Alcohol Withdrawal
-Patient amenable to outpatient rehab. [facility] to follow up today.
-Continue Seroquel, melatonin 5mg PO once daily
Constipation
-Previously administered senna without relief in symptoms
-Ordered Milk and Molasses 200mL enema x1
-Consider magnesium citrate if Milk and Milasses enema proves ineffective
Neck Pain
-Cervical JUAN DANIEL scheduled for today. Morning dose of heparin has been held in anticipation of the procedure
-Continue lidocaine 4% patch, acetaminophen 650mg PO Q4H PRN for pain, Oxycodone 10mg PO Q4H PRN for pain
Essential Tremors
-Encouraged out patient follow up with neurologist
Black Stools
-No indication of active GI bleed.
CAD status post stent in 2013
-Continue home meds
Essential Hypertension
-Continue home meds
Hypothyroidism
-Continue home meds
Hemochromatosis
-Encouraged follow up with cementer
DVT proph--SC heparin [AM dose on 03/03 being held in anticipation of Cervical JUAN DANIEL]
Code status--Full code
Anticipated Discharge: 24 - 48 hours
Subjective/Interval History
-
Date of Service: March 03, 2025
He is doing well today. He was able to sleep for 3.5 hours in total last night with 100mg of Seroquel. He does report some ongoing constipation not previously mentioned, and states he has not had a bowel movement in 8 days. He was given Senna last
night which he states has not helped, and has given him abdominal cramping/pain. He reports the same constant 8/10 right sided cervical pain as he did yesterday, and is optimistic about the Cervical JUAN DANIEL. He believes that he may see some improvement
with his sleep with pain reduction. He denies hallucinations today or yesterday. He admits wheezing, but reports improvement with breathing treatments.
Objective Data
-
Labs:
Laboratory Results
03/03/25 03/03/25
07:19 07:20
WBC 5.4
Hgb 11.5 L
Hct 37.4 L
Plt Count 197 D
PT 13.8
INR 1.03
Sodium 140
Potassium 4.1
Chloride 108 H
Carbon Dioxide 23
BUN 10
Creatinine 0.7
Glucose 94
Calcium 9.4
Total Bilirubin 0.6
AST 32
ALT 24
Alkaline Phosphatase 106
Vital Signs:
Vital Signs
Temp Pulse Resp BP Pulse Ox
98.4 F 84 14 153/97 98
03/03/25 07:50 03/03/25 09:15 03/03/25 09:15 03/03/25 08:44 03/03/25 09:15
I&O
03/02/25 03/03/25 03/04/25
06:59 06:59 06:59
Intake Total 650 / 650 600 / 600
Output Total 2100 / 2100 1850 / 1850
Balance -1450 / -1450 -1250 / -1250
Review of Systems
-
History Source: Patient
Constitutional: Reports No Symptoms
Respiratory: Reports Wheezing
Cardiac: Reports No Symptoms
Abdomen/GI: Reports Constipated
Physical Exam
-
General: Well Developed, Well Nourished, No Apparent Distress and Comfortable
HEENT: Normocephalic
Respiratory: Wheezes (Bilateral lower lobes)
Cardiac: Regular Rhythm and S1/S2
Skin: Warm and Dry
Neuro: Awake, Alert, Oriented and Tremors
Psych: Calm
--- NOTE | 2025-03-03 12:24 | W.PN.UPDATE ---
Update Note
Progress Note Update
Patient seen at bedside, chart reviewed. Mr. Maravilla reports his sleep has improved. He is also eating well but concerned that he has not had a BM in '8 days'. He is anticipated for an epidural today for his neck pain He is optimistic it will be
helpful since this pain is more acute than his chronic back pain. He reports his mood as stable despite having some stressors. He just found out he has to move out of his sister's in 30 days. He does plan to do D&A tx once medically cleared for DC.
Phenobarbtal taper is now complete. Denies any concerns at this time.
Impression/Recommendations- ETOH use disorder, severe with withdrawal, now improved. Continue with MSAS and seroquel 50mg BID and 100mg HS. Plan is for inpatient rehab via [facility] Psych to sign off, call or reconsult with any new or immediate
concerns.
--- NOTE | 2025-03-03 14:00 | CHAP ---
Msgr. Aguilar Webb of [facility] in [place] gave [place] the Sacrament of the Sick. Exact time uncertain.
--- NOTE | 2025-03-03 15:13 | CM ---
Patient seen at bedside with physicians on 2 north. Patient for procedure and then wanting to talk to [facility] about placement. CM will continue to follow for discharge planning needs.
Plan; [facility]
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
[2025-03-03] MEDS: HEPARIN 5000 UNITS SC ×2 (16:33→23:02)
[2025-03-03] MEDS: ZYLOPRIM 200 MG PO (17:43)
[2025-03-03] MEDS: REMOVE LIDOCAINE PATCH REMOVE (19:44)
[2025-03-03] MEDS: SENOKOT 8.6 MG PO (19:45)
[2025-03-03] MEDS: COLACE 300 MG PO (22:53)
[2025-03-03] MEDS: MELATONIN 5 MG PO (22:53)
[2025-03-03] MEDS: SEROQUEL 100 MG PO (22:53)
[2025-03-03] MEDS: REMOVE NICOTINE PATCH 1 PATCH REMOVE (22:54)
[2025-03-04] MEDS: ROXICODONE 10 MG PO ×3 (03:00→11:31)
[2025-03-04 03:15] VITALS: BP 152/92
[2025-03-04] MEDS: SYNTHROID 25 MCG PO (04:08)
[2025-03-04 06:55] LABS: Hematocrit 37.5 % (39.0-52.0); Hemoglobin 11.6 g/dL (13.0-18.0); Mean Corp Hgb Conc. 30.9 g/dL (33.0-37.0); Mean Corpuscular Volume 65.2 fL (80.0-94.0); Platelet Count 191 10^3/uL (130-400); Red Cell Dist. Width 18.6 % (11.5-14.5)
[2025-03-04 07:10] VITALS: BP 156/85
[2025-03-04 07:19] LABS: ALT (SGPT) 25 U/L (0-50); AST (SGOT) 30 U/L (17-59); Albumin 4.4 g/dl (3.5-5.0); Alkaline Phosphatase 110 U/L (38-126); Blood Urea Nitrogen 10 mg/dl (9-20); Calcium 9.8 mg/dl (8.4-10.2); Carbon Dioxide 22 mmol/L (22-30); Chloride 120 mmol/L (98-107); Estimated Creatinine Clearance 108 ml/min; Glucose 101 mg/dl (70-99); Potassium 4.4 mmol/L (3.5-5.1); Sodium 138 mmol/L (135-145); Total Protein 7.3 g/dl (6.3-8.2); eGFR > 60.00
--- NOTE | 2025-03-04 08:34 | W.PN.HOSP.TC ---
Addendum entered and electronically signed by Gisella Alvarez MD 03/04/25 16:01:
I saw and evaluated the patient independently. I reviewed the resident�s note and agree with findings and plan as documented by Dr. Capellan.
GENERAL: well developed, well nourished, male in no apparent distress
HEENT: NC/AT
HEART: regular rate and rhythm, +S1, +S2
LUNGS : clear to auscultation bilaterally
ABDOM: soft, nontender, nondistended, + bowel sounds
EXT: no cyanosis, clubbing, or edema
NEUROLOGIC: essential tremor of right hand
acute alcohol withdrawal--Alcohol use disorder without previous history of withdrawal--was hallucinating, seems improved--on MSAS, Seroquel, oxy for neck pain--finished phenobarb taper- he wants help for alcohol but cannot go to inpatient as his
sister (with whom he lives) has given him 7 days to retrieve his things since she is selling the house--referred to [facility]
Nausea with black stools--No evidence of active GI bleed--Heme test negative twice--appears to have anemia of chronic disease --iron studies are difficult to interpret because he has hemochromatosis and gets phlebotomy--apprec GI--cont
PPI/antiemetics
Neck pain--Severe in nature---prior h/o of cervical disc disease and surgery--has chronic falls--? 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
moderate central canal stenosis and severe right neural foraminal narrowing at C5/C6 and C3/C4 prior anterior discectomy and fusion at C6/C7 noted and MRI same--apprec neurosurg input, not surgical--CT/MRI reviewed--s/p IR for epidural 03/03/25
constipation --resolved
Tremors-- intentional--Admitting CT head shows no evidence of acute intracranial finding--Patient is likely self treating with alcohol--on Toprol XL but propranolol might be better....
Active wheezing--resolved--without short of breath or cough--Patient is an ex-smoker but currently actively vapes-- Uses as needed nebulizers--He has a history of pneumonia 2 months ago and was supposed to get a follow-up chest imaging--Not
hypoxic--Bilateral opacities more pronounced on the left and may represent pneumonia--on unasyn per pulm--started 02/24, finished course--on room air-- Dr. Macedo discussed with pulmonary who recommends completion of antibiotics and follow-up chest
x-ray and if still persistent then get CT.
Essential Hypertension-cont home meds as able
Hemochromatosis--ferritin is at 45 and percent saturation is very high at 100%--Patient to follow-up with primary winder contort operator
CAD status post prior coronary stenting--continue with his aspirin and statins
Hypothyroidism--continue Synthroid
DVT proph--SC heparin
code status--Full code
Original Note:
Today's Communication/Plan
-
Discharge
Assessment / Plan
Assessment / Plan
Assessment
This is a 69 y/o male with pmhx of chronic alcohol dependency, hypothyroidism, hypertension, CAD and hx of Prostate Cancer who presented to the ED on 02/22/2025 with an uncontrolled tremor and right sided neck pain that had been ongoing for 5 days in
the setting of acute alcohol withdrawal, with his last drink being on 02/21/2025.
Plan
Acute Alcohol Withdrawal
-Patient no longer agreeable to rehab. Provided patient with contact information for [facility] so he can reach out once he feels ready.
-Pt now stable for discharge to home.
Constipation, now resolved
-Pt had successful bowel movement yesterday
Neck Pain
-Cervical JUAN DANIEL completed yesterday.
-Continue home medications for pain
Essential Tremors
-Encouraged out patient follow up with neurologist
Black Stools-Resolved
-No indication of active GI bleed, no resolved
CAD status post stent in 2013
-Continue home meds
Essential Hypertension
-Continue home meds
Hypothyroidism
-Continue home meds
Hemochromatosis
-Encouraged follow up with winder contort operator
Code status--Full code
Anticipated Discharge: Today
Subjective/Interval History
-
Date of Service: March 04, 2025
Patient reports the pain in the right side of his neck has changed since the cervical JUAN DANIEL. It no longer hurts where it originally had, but now hurts at a new site. Most of this visit was spent discussing social issues, as he was informed today by
his niece that his sister is selling the house that they both live at and he has until the to collect his things and move them. He is no longer interested in pursuing inpatient rehab, as he feels he has to ensure that his belongings are safe
and he has a place to live before he can follow up with treatment.
Objective Data
-
Labs:
Laboratory Results
03/04/25
06:21
WBC 6.0
Hgb 11.6 L
Hct 37.5 L
Plt Count 191
Sodium 138
Potassium 4.4
Chloride 120 H
Carbon Dioxide 22
BUN 10
Creatinine 0.7
Glucose 101 H
Calcium 9.8
Total Bilirubin 0.7
AST 30
ALT 25
Alkaline Phosphatase 110
Vital Signs:
Vital Signs
Temp Pulse Resp BP Pulse Ox
97.8 F 70 18 156/85 98
03/04/25 07:10 03/04/25 07:10 03/04/25 07:10 03/04/25 07:10 03/04/25 07:10
I&O
03/03/25 03/04/25 03/05/25
06:59 06:59 06:59
Intake Total 600 / 600 2099
Output Total 1850 / 1850
Balance -1250 / -1250 2099
Review of Systems
-
History Source: Patient
Constitutional: Reports No Symptoms
Respiratory: Reports No Symptoms
Cardiac: Reports No Symptoms
Abdomen/GI: Reports No Symptoms
Musculoskeletal: Reports Muscle Pain
Physical Exam
-
General: Well Developed, Well Nourished, No Apparent Distress and Comfortable
HEENT: Normocephalic and Atraumatic
Respiratory: Clear to Auscultation
Cardiac: Regular Rhythm and S1/S2
Skin: Warm and Dry
Neuro: Awake, Alert and Oriented
Psych: Calm
[2025-03-04] MEDS: NICODERM TRANSDERMAL 21 MG TRANSDERM (08:38)
[2025-03-04] MEDS: HEPARIN 5000 UNITS SC (08:38)
[2025-03-04] MEDS: TOPROL XL 100 MG PO (08:39)
[2025-03-04] MEDS: LIPITOR 20 MG PO (08:39)
[2025-03-04] MEDS: FOLVITE 1 MG PO (08:39)
[2025-03-04] MEDS: CALAN EXTENDED RELEASE 180 MG PO (08:39)
[2025-03-04] MEDS: MAG-TAB SR 84 MG PO (08:39)
[2025-03-04] MEDS: VITAMIN B1 100 MG PO (08:40)
[2025-03-04] MEDS: SENOKOT 8.6 MG PO (08:40)
[2025-03-04] MEDS: TRIAMCINOLONE ACETONIDE 0.025% CREAM TOPICAL (08:40)
[2025-03-04] MEDS: ZESTRIL 10 MG PO (08:40)
[2025-03-04] MEDS: LIDOCAINE 4% PATCH TOPICAL (08:41)
[2025-03-04] MEDS: SEROQUEL 50 MG PO (08:42)
[2025-03-04] MEDS: PROTONIX 40 MG PO (08:42)
[2025-03-04 11:45] VITALS: BP 143/88
--- NOTE | 2025-03-04 13:00 | W.DCSUMMARY ---
Discharge Summary
Discharge Data
Date of Admission: 02/22/25
Date of Discharge: 03/04/25
-
Pending Results: No
Hospital Course
This is a 69 y/o male with pmhx of chronic alcohol dependency, hypothyroidism, hypertension, CAD, hemochromatosis and hx of Prostate Cancer who presented to the ED on 02/22/2025 with an uncontrolled tremor and right sided neck pain (in the setting of
several falls) that had been ongoing for 5 days. His last drink was on 02/21/2025. He additionally reported dark stools for 1 week prior to ED visit and chronic wheezing.
X-ray of his chest showed a left sided opacity. CT of his cervical spine revealed degenerative disc disease, central canal stenosis and osteophytes. He was started on an alcohol withdrawal protocol including phenobarbital and was referred to [facility],
and given oxycodone for his pain. He was given as needed nebulizer treatments for his wheezing, and started on antibiotics for presumed pneumonia. Stool occult blood tests were negative.
During his hospitalization he developed hallucinations including bugs crawling on the ground, and confusion. His neck pain remained constant despite pain medication, so he was given a Cervical JUAN DANIEL on 03/03. He continued the alcohol withdrawal, and
while he initially expressed interest in inpatient rehab, he ultimately declined inpatient rehab due to social circumstances requiring him to collect his belongings from where he was living before they were discarded.
Once medically stable he was discharged to home and encouraged to follow up with his PCP, and continue to maintain his sobriety.
Discharge Plan
-
Patient Disposition: Home (Routine Discharge)
Discharge Diagnosis/Procedures: Alcohol withdrawal, chronic alcohol dependency, right sided neck pain, essential tremors, hemochromatosis, hypothyroidism, essential hypertension, coronary artery disease, history of prostate cancer
Diet: No restrictions
Additional Diets: No alcohol
Activity: No restrictions
Driving Restrictions: As prior to admission
Bathing Restrictions: None
Referrals:
Rufus Ceja Jr., DO [Family Provider, Family Practice] - in less than 1 week
Prescriptions:
New
thiamine mononitrate (vit B1) 100 mg Tablet
100 mg PO BID Qty: 60 0RF
Continued
atorvastatin [Lipitor] 20 mg Tablet
20 mg PO DAILY
allopurinol 100 mg Tablet
200 mg PO QPM
levothyroxine [Synthroid] 25 mcg Tablet
25 mcg PO DAILY
lisinopril 10 mg Tablet
10 mg PO HS
quetiapine [Seroquel] 50 mg Tablet
50 mg PO HS
metoprolol succinate [Toprol XL] 100 mg Tablet Extended Release 24 Hr
100 mg PO DAILY
Patient Comments:
patient bryce paperwork has this as stopped 11/02/24, patient explained he was told to restart this with verapamil, both medication have not been filled since 07/2024
verapamil 180 mg Tablet Extended Release
180 mg PO DAILY
Patient Comments:
patient bryce has this as stopped on 11/02/24 but patient stated he was told to restart this with his toprol xl, both medication has not been filled since 07/2024
selenium 50 mcg Tablet
50 mcg PO DAILY
docusate sodium [Colace] 100 mg Capsule
300 mg PO HS
folic acid 800 mcg Tablet
0.8 mg PO DAILY
cholecalciferol (vitamin D3) [Vitamin D3] 25 mcg (1,000 unit) Tablet
25 mcg PO DAILY
magnesium oxide 400 mg magnesium Tablet
400 mg PO DAILY
oxycodone 10 mg Tablet
10 mg PO QIDPRN PRN (Reason: severe pains)
aspirin 325 mg Tablet
325 mg PO DAILY Qty: 0 0RF
hydrochlorothiazide 50 mg Tablet
50 mg PO DAILY Qty: 0 0RF
quetiapine [Seroquel] 50 mg Tablet
100 mg PO QPM Qty: 0 0RF
Discharge Orders:
Discharge Patient (As Directed); Ordered 03/04/25
Ordered By: Paulina Capellan
Discharge Date and Time
Print Language: [place]
--- NOTE | 2025-03-04 13:50 | CM ---
Patient seen at bedside with physicians on . Patient stated that he had met with his niece and she told him he had 3 weeks to clean out his home before the sale. Patient no longer willing to go to alcohol rehab and now indicates he will
follow up with [facility] when he has taken care of his belongings. Patient indicated he had the contact information for [facility]. CM attempted to encourage patient to participate with rehab but patient indicated he needed to take care of belongings
first. Patient stated he had talked to his niece and he would call an uber for transportation home. CM will continue to follow for discharge planning needs.
Plan; home with follow up with [facility]
== END 2025-03-04 13:33 | disposition home or self-care (01) | DRG 897 ==
LOC: 2 NORTH 15:24
PROVIDERS: Internal Medicine; Nurse Practitioner Family; Nurse Practitioner Primary Care; Radiology Vascular & Interventional Radiology; ADMITTING PHYSICIAN Internal Medicine; ATTENDING PHYSICIAN Internal Medicine; CONSULT PHYSICIAN Internal Medicine Critical Care Medicine; CONSULT PHYSICIAN Neurological Surgery; EMERGENCY PHYSICIAN Emergency Medicine; FAMILY PHYSICIAN Family Medicine; OTHER PHYSICIAN Internal Medicine Gastroenterology; OTHER PHYSICIAN Psychiatry & Neurology Psychiatry
DX: F10.239 Alcohol dependence with withdrawal, unspecified (principal); M50.022 Cervical disc disorder at C5-C6 level with myelopathy; E87.0 Hyperosmolality and hypernatremia; M47.12 Other spondylosis with myelopathy, cervical region; K51.90 Ulcerative colitis, unspecified, without complications; K70.10 Alcoholic hepatitis without ascites; M48.02 Spinal stenosis, cervical region; E83.42 Hypomagnesemia; I10 Essential (primary) hypertension; E83.119 Hemochromatosis, unspecified; M43.12 Spondylolisthesis, cervical region; E78.00 Pure hypercholesterolemia, unspecified; M10.9 Gout, unspecified; F10.251 Alcohol dependence with alcohol-induced psychotic disorder with hallucinations; I25.10 Atherosclerotic heart disease of native coronary artery without angina pectoris; D69.6 Thrombocytopenia, unspecified; F17.290 Nicotine dependence, other tobacco product, uncomplicated; D63.8 Anemia in other chronic diseases classified elsewhere; E03.9 Hypothyroidism, unspecified; K59.00 Constipation, unspecified; G25.0 Essential tremor; R06.2 Wheezing; M25.78 Osteophyte, vertebrae; Y90.1 Blood alcohol level of 20-39 mg/100 ml; Z79.890 Hormone replacement therapy; Z85.46 Personal history of malignant neoplasm of prostate; Z95.5 Presence of coronary angioplasty implant and graft; Z90.79 Acquired absence of other genital organ(s); Z87.01 Personal history of pneumonia (recurrent); Z80.0 Family history of malignant neoplasm of digestive organs
CPT/HCPCS: 62321; 70450; 71045; 72125; 72141; 80048; 80053; 80306; 80307; 81003; 81015; 82010; 82077; 82140; 82248; 82550; 82607; 82728; 82977; 83540; 83550; 83690; 83735; 84100; 84443; 85014; 85018; 85025; 85027; 85610; 85730; 86850; 86900; 86901; 87449; 87899; 93005; 94640; 96361; 96365; 96366; 96375; 96376; 97163; 97167; 97530; 99285; 99406

== ENCOUNTER 2025-05-09 23:51 | Inpatient (IN) | payer MEDICARE, OTHER, SELFPAY ==
[2025-05-09] VITALS (8 sets, daily range): BP systolic 138–164; BP diastolic 99–117; PULSE 82–103
--- NOTE | 2025-05-09 17:30 | EDRN ---
Patient wheeled from the waiting room via stretcher. patient is using profanity towards the female tech bringing the patient to the room. Tech requested the patient stop using the inappropriate language and the patient told her that he will not stop
as that is how he speaks. Patient refusing to put a hospital gown on and is barely agreeing to get on the stretcher.
--- NOTE | 2025-05-09 18:15 | ED.GENMED ---
History of Present Illness
General
Chief Complaint: Alcohol Problem
Time Seen by Provider: 05/09/25 17:45
History of Present Illness
History of Present Illness:
69-year-old male with history of hypertension and alcohol abuse presenting to the emergency department for alcohol use disorder. He notes that he is looking for help regarding his addiction, reports that he last drank yesterday evening. Reports
that when he wakes up he feels tremulous and had an episode about 4 days ago where he stood up and felt very lightheaded and dizzy. He got a blood pressure cuff and notes that his blood pressure was low. Notes that he only has been eating about 1
meal a day, has not been drinking a lot of water. Denies any drug abuse. Denies any hallucinations. Denies chest pain or difficulty breathing. Denies recent fall or trauma. Denies additional acute medical complaint
Phy Exam
Physical Exam
Physical Exam:
General: Well-appearing, no clinical signs of dehydration, nontoxic and in no acute distress
HEENT: protecting airway
Neck: appears supple
CV: Normal heart rate, regular rhythm
Resp: No accessory muscle use, no increased work of breathing, lungs clear to auscultation bilaterally
Abd: No distention
Extremities: No deformities, no swelling. Intention tremor to the right upper extremity. No tremor at rest.
Neuro: alert, no focal neurologic deficit
: deferred
Rectal: deferred
Psych: Normal affect
Skin: Intact
Scores
Withdrawal Assessment of Alcohol
Withdrawal Assessment Completed?: Yes
Nausea and Vomiting: No nausea and no vomiting
Tactile Disturbances: None
Tremor: Moderate, with patient's arms extended
Auditory Disturbances: Not present
Paroxysmal Sweats: No sweat visible
Visual Disturbances: Not present
Anxiety: Mild anxiety
Headache, Fullness in Head: Not present
Agitation: Moderately fidgety and restless
Orientation and clouding of sensorium: Oriented and can do serial additions
Total CIWA Score: 9
Alcohol Withdrawal Medication Recommendation: Equal to MSAS Score 5-7. Lorazepam 1mg IV or PO NOW & re-assess q2hrs
Course
Orders/Labs/Results
Orders:
Orders
05/09/25 18:07
Orthostatic VS- Treatment ONCE
0.9% Sodium Chloride 1000 ml [Nss] 1,000 ml IV BOLUS
05/09/25 18:10
diazePAM [Valium Injection] 2 mg IV NOW STA
05/09/25 18:17
Alcohol Urgent
Complete Blood Count/With Diff Urgent
Comprehensive Metabolic Panel Urgent
05/09/25 20:13
Oxycodone/Acetaminophen [Percocet 5/325] 1 tablet PO NOW STA
05/09/25 21:06
diazePAM [Valium Injection] 2 mg IV NOW STA
05/09/25 21:59
Oxycodone/Acetaminophen [Percocet 5/325] 1 tablet PO NOW STA
Quetiapine Fumarate [Seroquel] 100 mg PO NOW STA
Abnormal Lab Results
05/09/25
18:17
Hgb 12.9 L g/dL
(13.0-18.0)
MCV 67.8 L fL
(80.0-94.0)
MCH 21.3 L pg
(27.0-31.0)
MCHC 31.4 L g/dL
(33.0-37.0)
RDW 18.2 H %
(11.5-14.5)
Immature Gran % 0.6 H %
(0-0.5)
BUN 3 L mg/dl
(9-20)
Glucose 102 H mg/dl
(70-99)
AST 70 H U/L
(17-59)
Alkaline Phosphatase 134 H U/L
(38-126)
05/09/25 18:17
05/09/25 18:17
Vital Signs
Initial and Last Documented VS:
Initial Vital Signs
Temp Pulse Resp BP Pulse Ox
98 F 108 20 145/100 100
05/09/25 15:33 05/09/25 15:33 05/09/25 15:33 05/09/25 15:33 05/09/25 15:33
Last Documented Vital Signs
Temp Pulse Resp BP Pulse Ox
98.8 F 94 16 142/106 98
05/09/25 21:04 05/09/25 23:00 05/09/25 23:00 05/09/25 23:00 05/09/25 23:00
MDM/Problems Addressed
MDM/Problems Addressed:
69-year-old male with history of alcohol use disorder and hypertension presenting for alcohol abuse. Vital signs on arrival significant for mild tachycardia and hypertension.
On exam, patient in no acute distress. Per nursing staff, noted to be belligerent in triage, verbally assaultive. Patient has since become more cooperative. He is interested in resources for alcohol abuse. Suspect that patient drank today,
slightly intoxicated, however directable and answering questions appropriately. Patient does not appear to be in any significant withdrawal, slightly tremulous/agitated. Does note episode of dizziness 4 days ago from sitting to standing position.
Suspected vasovagal quality symptoms, likely from alcohol abuse and poor nutrition. Will obtain orthostatics, laboratory analysis, start patient IV fluids. Will consult with [facility].
20:45 - Labs are unremarkable with exception of elevated alcohol level. Did discuss with [facility]. Patient is not interested in inpatient rehab. Prior history of DTs and withdrawal seizures. Recommends reaching out to patient access center at .
[facility] for detox. Patient is agreeable to this. Call placed
21:40 -patient accepted to [facility] by Dr. Sorensen. Will arrange transport
23:00 -received callback from [facility], can no longer accept patient to the facility due to lack of nursing staff and possible new policy that they cannot accept patients out of hospital. For this reason admitting for alcohol withdrawal, possible
placement tomorrow
*Pulse Oximetry
SaO2: 100
Oxygen Mode of Delivery: Room air
Patient hypoxic: no
*Critical Care Note
Total Time (30-74mins, 75-104mins- exclusive of procedures): Not Applicable
ED Attending Note
-
Portions of this chart may have been created with voice recognition software.� Occasional wrong word or��sound alike� substitutions may have occurred due to the inherent limitations of voice recognition software.
Discharge Plan
Departure
Patient Disposition: [facility]
Date of Disposition: 05/09/25
Time of Disposition: 21:40
Discharge Problem:
Alcohol withdrawal
Instructions: Alcohol Withdrawal (DC)
Prescriptions:
No Action
atorvastatin [Lipitor] 20 mg Tablet
20 mg PO DAILY
allopurinol 100 mg Tablet
200 mg PO QPM
levothyroxine [Synthroid] 25 mcg Tablet
25 mcg PO DAILY
lisinopril 10 mg Tablet
10 mg PO HS
quetiapine [Seroquel] 50 mg Tablet
50 mg PO HS
metoprolol succinate [Toprol XL] 100 mg Tablet Extended Release 24 Hr
100 mg PO DAILY
Patient Comments:
patient bryce paperwork has this as stopped 11/02/24, patient explained he was told to restart this with verapamil, both medication have not been filled since 07/2024
verapamil 180 mg Tablet Extended Release
180 mg PO DAILY
Patient Comments:
urmila wu has this as stopped on 11/02/24 but patient stated he was told to restart this with his toprol xl, both medication has not been filled since 07/2024
selenium 50 mcg Tablet
50 mcg PO DAILY
docusate sodium [Colace] 100 mg Capsule
300 mg PO HS
folic acid 800 mcg Tablet
0.8 mg PO DAILY
cholecalciferol (vitamin D3) [Vitamin D3] 25 mcg (1,000 unit) Tablet
25 mcg PO DAILY
magnesium oxide 400 mg magnesium Tablet
400 mg PO DAILY
oxycodone 10 mg Tablet
10 mg PO QIDPRN PRN (Reason: severe pains)
thiamine mononitrate (vit B1) 100 mg Tablet
100 mg PO BID Qty: 60 0RF
aspirin 325 mg Tablet
325 mg PO DAILY Qty: 0 0RF
hydrochlorothiazide 50 mg Tablet
50 mg PO DAILY Qty: 0 0RF
quetiapine [Seroquel] 50 mg Tablet
100 mg PO QPM Qty: 0 0RF
Referrals:
Rufus Ceja Jr., DO [Family Provider, Family Practice]
Hospital Transfer
Other hospital: [facility]
I certify that the patient requires transfer: Yes
Discussed case with accepting physician: Dr. Sorensen
Reason for transfer: other
Interventions
Interventions:
*Risk Screen - Suicide Last Done: 05/09/25 15:33
*General Assessment Last Done: 05/09/25 20:20
*Neglect/Abuse Screening Last Done: 05/09/25 15:33
*ED- Fall Risk Assessment Last Done: 05/09/25 20:20
*ED COVID-19 Vaccine History Last Done: 05/09/25 20:20
ED- Neurological Assessment Last Done: 05/09/25 18:00
ED-Psychological Assessment Last Done: 05/09/25 18:00
Discharge Date and Time
Print Language: MICRONESIAN
[2025-05-09] MEDS: VALIUM INJECTION 2 MG IV ×2 (18:21→21:08)
[2025-05-09] MEDS: NSS 1000 IV (18:21)
[2025-05-09 18:27] LABS: Hematocrit 41.1 % (39.0-52.0); Hemoglobin 12.9 g/dL (13.0-18.0); Mean Corp Hgb Conc. 31.4 g/dL (33.0-37.0); Mean Corpuscular Volume 67.8 fL (80.0-94.0); Nucleated Red Blood Cells % 0.3 % (-); Platelet Count 314 10^3/uL (130-400); Red Cell Dist. Width 18.2 % (11.5-14.5)
[2025-05-09 18:52] LABS: ALT (SGPT) 40 U/L (0-50); AST (SGOT) 70 U/L (17-59); Albumin 4.6 g/dl (3.5-5.0); Alkaline Phosphatase 134 U/L (38-126); Blood Urea Nitrogen 3 mg/dl (9-20); Calcium 9.5 mg/dl (8.4-10.2); Carbon Dioxide 24 mmol/L (22-30); Chloride 106 mmol/L (98-107); Glucose 102 mg/dl (70-99); Potassium 4.0 mmol/L (3.5-5.1); Sodium 144 mmol/L (135-145); Total Protein 7.8 g/dl (6.3-8.2); eGFR > 60.00
[2025-05-09] MEDS: PERCOCET 5/325 1 TABLET PO ×2 (20:15→22:14)
[2025-05-09] MEDS: SEROQUEL 100 MG PO (22:14)
--- NOTE | 2025-05-09 23:56 | HPS.HSE ---
Family Physician
-
Family Physician: Rufus Ceja
Chief Complaint
-
Tremors
History of Present Illness
Patient is a 69y M with PMH significant for ASCVD, hypertension and alcohol use disorder who presents to ED complaining of shaking, nausea and 'withdrawal symptoms'. Patient typically drinks 1 quart of vodka daily and has done so for many years.
His last drink was Sunday evening. Today he noted shaking / tremors and presented to the ED for further evaluation. Patient reports that his BP was very low at home early this week (Sunday). He notes it was 80/40 and he felt lightheaded and
weak. he stopped all of his usual antihypertensive medications since that time and has increased his salt intake. He states that he has felt somewhat better - until shaking started today.
Patient reports prior history of alcohol withdrawal with severe 'shaking' and tremors. ? actual seizure activity.
He was in inpatient rehab about 40 years ago. None since and he is romulo that he has no intentions of attending rehab program now.
Medical History
Past Medical History
Past Medical History: Reports Other
Additional Past Medical History:
ASCVD
Hypertension
Prostate Cancer s/p Surgery and XRT
Anxiety / Depression / Insomnia
Alcohol Use Disorder
Gout
Hypothyroidism
Past Surgical History: Reports Other
Additional Past Surgical History:
Prostatectomy
PTCA with Stent x 2
Cervical Discectomy
Cholecystectomy
Left Knee Arthroscopy
Social History
Tobacco: Former Smoker (Quit smoking 14 years ago. > 40 pack years total use.)
Alcohol: Daily (1 quart vodka daily on average. Last was 24 hours prior to admission.)
Family History
Family History: Not pertinent
Allergies / Home Medications
Allergies reflects when Allergies were last updated in [facility].
Home Medications with original date entered in [facility]
Allergy/Medication List:
Allergies
Allergy/AdvReac Type Severity Reaction Status Date / Time
No Known Allergies Allergy Verified 05/09/25 15:33
Home Medications
allopurinol 100 mg tablet 200 mg PO QPM Gout 02/22/25
atorvastatin 20 mg tablet (Lipitor) 20 mg PO DAILY High Cholesterol 02/22/25
cholecalciferol (vitamin D3) 25 mcg (1,000 unit) tablet (Vitamin D3) 25 mcg PO DAILY Supplement 02/22/25
folic acid 800 mcg tablet 0.8 mg PO DAILY Supplement 02/22/25
levothyroxine 25 mcg tablet (Synthroid) 25 mcg PO DAILY Thyroid 02/22/25
lisinopril 10 mg tablet 10 mg PO HS Blood Pressure 02/22/25
magnesium oxide 400 mg PO DAILY Supplement 02/22/25
verapamil 180 mg tablet,extended release 180 mg PO DAILY Heart Disease/Condition 02/22/25
aspirin 325 mg tablet 325 mg PO DAILY Blood clot prevention/tx #0 tabs 03/04/25
hydrochlorothiazide 50 mg tablet 50 mg PO DAILY Blood pressure #0 tabs 03/04/25
quetiapine 50 mg tablet (Seroquel) 100 mg (2 x 50 mg) PO QPM Mental Health/Anxiety #0 tabs 03/04/25
thiamine mononitrate (vit B1) 100 mg tablet 100 mg PO BID Supplement #60 tabs 03/04/25
gabapentin 300 mg capsule 300 mg PO HS 05/09/25
metoprolol succinate 50 mg tablet,extended release 24 hr 50 mg PO DAILY 05/09/25
Review of Systems
-
History Source: Patient
A 12 point ROS was completed and negative except as noted: Yes
Constitutional: Reports Fatigue; Denies Fever or Chills
EENT: Denies Sore Throat
Respiratory: Denies Cough or Trouble Breathing
Cardiac: Denies Chest Pain or Palpitations
Abdomen/GI: Reports Nausea and Diarrhea; Denies Abdominal Pain, Vomiting, Constipated, Bloody Stools or Black Stools
: Denies Dysuria, Frequency or Flank Pain
Musculoskeletal: Denies Joint Pain or Edema
Neurological: Reports Dizzy and Other (shaking / tremors.); Denies Headache
Physical Exam
Vital Signs
Vital Signs
Temp Pulse Resp BP Pulse Ox
98.8 F 94 16 142/106 98
05/09/25 21:04 05/09/25 23:00 05/09/25 23:00 05/09/25 23:00 05/09/25 23:00
Physical Exam
General: Other (69y M with moderate resting tremor - mostly isolated to the RUE.)
HEENT: Other (Dry MM. Neck supple.)
Respiratory: Other (Few scatterd squeaks / wheezes.)
Cardiac: S1/S2 and Regular Rhythm; No Murmur
GI: Soft, Non Tender, Non Distended and Normal Bowel Sounds
Musculoskeletal: No Clubbing, No Cyanosis and No Edema
Neuro: AO x 3 and Nonfocal/grossly intact
Laboratory Results
-
05/09/25 18:17
05/09/25 18:17
Laboratory Results
Total Bilirubin 0.7 mg/dl (0.2-1.3) 05/09/25 18:17
AST 70 U/L (17-59) H 05/09/25 18:17
ALT 40 U/L (0-50) 05/09/25 18:17
Alkaline Phosphatase 134 U/L (38-126) H 05/09/25 18:17
Impression/Plan
-
A/P: Patient is a 69y M with PMH significant for ASCVD, hypertension and alcohol use disorder who presents to ED complaining of shaking / symptoms of alcohol withdrawal.
Alcohol Withdrawal
Alcohol Use Disorder
- Admit for further evaluation and treatment.
- MSAS protocol with BZDs as needed.
- Phenobarb taper with questionable history of prior withdrawal seizures.
- IVF / electrolyte support.
- Follow for clinical improvement.
- Patient not interested in formal rehab at present.
Benign Hypertension
- BP reportedly low at home early this week and he has not taken his meds since as a result.
- Some discrepancies in stated meds / outpatient pharmacy record.
- Patient reports taking verapamil and HCTZ - neither of which appear on his current pharmacy med list.
- Hold both for now.
- Continue metoprolol and lisinopril with holding parameters.
- Adjust regimen as needed for adequate control.
ASCVD
- Stable. No chest pain or dyspnea.
- Continue metoprolol, ASA, statin, etc.
Hypothyroidism
- Continue current T4 replacement.
- Update TFTs.
Anxiety / Depression / Insomnia
- Continue current psychotropic med regimen including gabapentin and quetiapine.
- PRN BZDs as noted above.
History of Gout
- Continue allopurinol.
History of Prostate Cancer
- Bladder scan protocol/
DVT Prophylaxis: Lovenox
Code Status: Full
[2025-05-10] VITALS (7 sets, daily range): BP systolic 144–167; BP diastolic 78–98; BMI 30.2
--- NOTE | 2025-05-10 00:30 | PTCARENOTE ---
Patient arrived from ED. Patient ambulatory from stretcher to bed. Patient aaox3, able to make needs known.
[2025-05-10] MEDS: PHENOBARBITAL 104 MG IV (00:56)
[2025-05-10] MEDS: LR 1000 IV ×3 (01:04→23:25)
[2025-05-10] MEDS: VALIUM INJECTION 5 MG IV (02:09)
[2025-05-10] MEDS: ATIVAN 1 MG PO ×4 (05:00→14:36)
[2025-05-10] MEDS: SYNTHROID 25 MCG PO (05:00)
[2025-05-10 05:59] LABS: Hematocrit 33.3 % (39.0-52.0); Hemoglobin 10.8 g/dL (13.0-18.0); Mean Corp Hgb Conc. 32.4 g/dL (33.0-37.0); Mean Corpuscular Volume 67.7 fL (80.0-94.0); Platelet Count 194 10^3/uL (130-400); Red Cell Dist. Width 17.1 % (11.5-14.5)
[2025-05-10 06:28] LABS: ALT (SGPT) 30 U/L (0-50); AST (SGOT) 44 U/L (17-59); Albumin 3.6 g/dl (3.5-5.0); Alkaline Phosphatase 119 U/L (38-126); Blood Urea Nitrogen 5 mg/dl (9-20); Calcium 8.1 mg/dl (8.4-10.2); Carbon Dioxide 25 mmol/L (22-30); Chloride 108 mmol/L (98-107); Estimated Creatinine Clearance 110 ml/min; Glucose 97 mg/dl (70-99); Magnesium 1.0 mg/dl (1.6-2.3); Potassium 3.7 mmol/L (3.5-5.1); Sodium 140 mmol/L (135-145); Total Protein 6.1 g/dl (6.3-8.2); eGFR > 60.00
[2025-05-10 07:36] LABS: Glucose - Point of Care 97 mg/dl (70-99)
[2025-05-10] MEDS: PHENOBARBITAL 97.5 MG IV ×3 (07:36→21:01)
[2025-05-10] MEDS: ASPIRIN 325 MG PO (07:39)
[2025-05-10] MEDS: MAGNESIUM OXIDE 400 MG PO (07:39)
[2025-05-10] MEDS: LIPITOR 20 MG PO (07:39)
[2025-05-10] MEDS: TOPROL XL 50 MG PO (07:40)
[2025-05-10] MEDS: PROTONIX IV 40 MG IV (07:53)
[2025-05-10] MEDS: NSS (PRESERVATIVE FREE) 10 ML IV (07:53)
[2025-05-10] MEDS: THIAMINE INJECTION 200 MG IV ×2 (07:53→19:05)
[2025-05-10] MEDS: FOLVITE 1 MG PO (07:56)
[2025-05-10 09:01] LABS: Urine Character Clear (Clear)
[2025-05-10 09:30] LABS: Urine Red Blood Cell 0-2 /HPF (0-2)
[2025-05-10 09:31] LABS: Urine White Cell 0-2 /HPF (0-5)
[2025-05-10] MEDS: NORCO 5/325 1 TABLET PO ×2 (10:56→17:13)
[2025-05-10 12:49] LABS: Glycohemoglobin (HgbA1c) 5.3 % (4.0-5.6)
--- NOTE | 2025-05-10 13:10 | W.PN.HOSP.TC ---
Today's Communication/Plan
-
Continue phenobarb/benzo regimen protocol for withdrawal
Imodium for diarrhea
Mag replacement
Assessment / Plan
Assessment / Plan
Alcohol Withdrawal
Alcohol Use Disorder
- MSAS remains lower side, although patient visibly tremulous.
- Phenobarbital taper with questionable history of prior withdrawal seizures.
- IVF / electrolyte support.
- Follow for clinical improvement.
- Patient not interested in formal rehab at present.
Benign Hypertension
- Some discrepancies in stated meds / outpatient pharmacy record.
- Patient reports taking verapamil and HCTZ - neither of which appear on his current pharmacy med list.
- Hold both for now.
- Continue metoprolol and lisinopril with holding parameters.
ASCVD
- Stable. No chest pain or dyspnea.
- Continue metoprolol, ASA, statin, etc.
Hypothyroidism
- Continue current T4 replacement.
- Update TFTs.
Anxiety / Depression / Insomnia
- Continue current psychotropic med regimen including gabapentin and quetiapine.
- PRN BZDs as noted above.
History of Gout
- Continue allopurinol.
History of Prostate Cancer
- Bladder scan protocol
Hypomagnesemia -replace with 4 g of mag
Diarrhea -likely alcohol use/withdrawal related. Imodium ordered
DVT Prophylaxis: Lovenox
Code Status: Full
Total time spent ; 51m ins
Anticipated Discharge: 24 - 48 hours
Subjective/Interval History
-
Date of Service: May 10, 2025
Visibly tremulous, aggravated by activity
Ongoing diarrhea
Feeling nauseous, no vomiting
Objective Data
-
Labs:
Laboratory Results
05/10/25
04:44
WBC 4.5 L
Hgb 10.8 L
Hct 33.3 L
Plt Count 194 D
Sodium 140
Potassium 3.7
Chloride 108 H
Carbon Dioxide 25
BUN 5 L
Creatinine 0.7
Glucose 97
Calcium 8.1 L
Total Bilirubin 0.9
AST 44
ALT 30
Alkaline Phosphatase 119
Vital Signs:
Vital Signs
Temp Pulse Resp BP Pulse Ox
98.4 F 79 24 157/94 97
05/10/25 11:20 05/10/25 11:20 05/10/25 11:20 05/10/25 11:20 05/10/25 11:20
I&O
05/09/25 05/10/25 05/11/25
06:59 06:59 06:59
Intake Total 960 / 960
Balance 960 / 960
Review of Systems
-
Respiratory: Reports No Symptoms
Cardiac: Reports No Symptoms
Abdomen/GI: Reports Nausea and Diarrhea; Denies Abdominal Pain or Vomiting
Physical Exam
-
General: Comfortable
HEENT: Negative Oxygen
Respiratory: Clear to Auscultation
Cardiac: Regular Rhythm and S1/S2
Neuro: Awake, Alert and Oriented
Psych: Calm
[2025-05-10] MEDS: MAGNESIUM SULFATE 100 IV (14:03)
[2025-05-10] MEDS: IMODIUM 2 MG PO (14:03)
[2025-05-10] MEDS: SEROQUEL 100 MG PO (17:12)
[2025-05-10] MEDS: ZYLOPRIM 200 MG PO (17:13)
[2025-05-10] MEDS: LOVENOX 40 MG SC (17:15)
[2025-05-10] MEDS: NEURONTIN 300 MG PO (21:01)
[2025-05-10] MEDS: ZESTRIL 10 MG PO (21:01)
[2025-05-11] VITALS (8 sets, daily range): BP systolic 133–160; BP diastolic 62–104; BMI 31.2
[2025-05-11] MEDS: NORCO 5/325 1 TABLET PO ×2 (03:19→09:56)
[2025-05-11] MEDS: SYNTHROID 25 MCG PO (05:02)
[2025-05-11] MEDS: PHENOBARBITAL 97.5 MG IV ×3 (07:29→21:00)
[2025-05-11] MEDS: ASPIRIN 325 MG PO (07:38)
[2025-05-11] MEDS: LIPITOR 20 MG PO (07:39)
[2025-05-11] MEDS: FOLVITE 1 MG PO (07:39)
[2025-05-11] MEDS: THIAMINE INJECTION 200 MG IV ×2 (07:39→19:00)
[2025-05-11] MEDS: TOPROL XL 50 MG PO (07:40)
[2025-05-11] MEDS: MAGNESIUM OXIDE 400 MG PO (07:40)
[2025-05-11 08:27] LABS: Hematocrit 35.6 % (39.0-52.0); Hemoglobin 11.2 g/dL (13.0-18.0); Mean Corp Hgb Conc. 31.5 g/dL (33.0-37.0); Mean Corpuscular Volume 67.6 fL (80.0-94.0); Platelet Count 165 10^3/uL (130-400); Red Cell Dist. Width 16.9 % (11.5-14.5)
[2025-05-11 08:54] LABS: ALT (SGPT) 25 U/L (0-50); AST (SGOT) 38 U/L (17-59); Albumin 3.7 g/dl (3.5-5.0); Alkaline Phosphatase 125 U/L (38-126); Blood Urea Nitrogen 10 mg/dl (9-20); Calcium 8.3 mg/dl (8.4-10.2); Carbon Dioxide 26 mmol/L (22-30); Chloride 107 mmol/L (98-107); Estimated Creatinine Clearance 112 ml/min; Glucose 91 mg/dl (70-99); Magnesium 1.5 mg/dl (1.6-2.3); Potassium 4.1 mmol/L (3.5-5.1); Sodium 138 mmol/L (135-145); Total Protein 6.4 g/dl (6.3-8.2); eGFR > 60.00
[2025-05-11] MEDS: NSS (PRESERVATIVE FREE) 10 ML IV (09:33)
[2025-05-11] MEDS: MAGNESIUM SULFATE 100 IV (09:33)
[2025-05-11] MEDS: LR IV (09:33)
[2025-05-11] MEDS: PROTONIX IV 40 MG IV (09:33)
--- NOTE | 2025-05-11 14:23 | W.PN.HOSP.TC ---
Today's Communication/Plan
-
Assessment / Plan
Assessment / Plan
General: No Apparent Distress, Comfortable and Conversant
HEENT: NormoCephalic, Moist mucous membranes, Atraumatic
Respiratory: Clear and Non Labored Respirations
Cardiac: S1/S2 and Regular Rhythm; No Rub or Gallop
GI: Soft, Non Tender, Non Distended and Normal Bowel Sounds
Musculoskeletal: No Edema, no deformity
: NO Quezada
Neuro: Awake, Alert, significant upper extremity tremors at rest but worse with action
Psych: Calm and Intact Judgment/Insight
Alcohol Withdrawal
Alcohol Use Disorder
- MSAS remains lower side, although patient visibly tremulous.
- Phenobarbital taper with questionable history of prior withdrawal seizures, titrate down to moderate dose tomorrow 05/12.
- IVF / electrolyte support.
- Follow for clinical improvement.
- Patient not interested in formal rehab at present.
Benign Hypertension
- Some initial discrepancies in stated meds / outpatient pharmacy record, reports taking verapamil and HCTZ - neither of which were on his pharmacy med list initially
- Continue metoprolol and lisinopril with holding parameters.
- Restarting home HCTZ and verapamil now that confirmed
ASCVD
- Stable. No chest pain or dyspnea.
- Continue metoprolol, ASA, statin, etc.
Hypothyroidism
- Continue current T4 replacement.
- TSH within normal limits
Anxiety / Depression / Insomnia
- Continue current psychotropic med regimen including gabapentin and quetiapine.
- PRN BZDs as noted above.
History of Gout
- Continue allopurinol.
History of Prostate Cancer
- Bladder scan protocol
Hypomagnesemia -serum mag 1.5 this morning, repleted IV, will monitor
Diarrhea -likely alcohol use/withdrawal related. Imodium ordered
DVT Prophylaxis: Lovenox
Code Status: Full
Total time spent: 53 min
Anticipated Discharge: > 48 hours
Subjective/Interval History
-
Date of Service: May 11, 2025
Patient was seen and examined at bedside this morning. No acute distress but does continue to have significant tremors. Remains on phenobarbital taper for alcohol withdrawal.
Objective Data
-
Labs:
Laboratory Results
05/11/25
08:13
WBC 4.9
Hgb 11.2 L
Hct 35.6 L
Plt Count 165
Sodium 138
Potassium 4.1
Chloride 107
Carbon Dioxide 26
BUN 10
Creatinine 0.7
Glucose 91
Calcium 8.3 L
Total Bilirubin 1.4 H
AST 38
ALT 25
Alkaline Phosphatase 125
Vital Signs:
Vital Signs
Temp Pulse Resp BP Pulse Ox
97.8 F 76 24 155/103 100
05/11/25 13:00 05/11/25 13:00 05/11/25 13:00 05/11/25 13:00 05/11/25 13:00
I&O
05/10/25 05/11/25 05/12/25
06:59 06:59 06:59
Intake Total 960 / 960 2160 / 2160
Output Total 300 / 300
Balance 960 / 960 1860 / 1860
Review of Systems
-
History Source: Patient
All other systems: Reviewed and negative
Neuro: Reports Tremors
Physical Exam
-
General: No Apparent Distress
--- NOTE | 2025-05-11 15:07 | CM ---
Patient seen bedside, initial assessment completed. Patient is a 69y M with PMH significant for ASCVD, hypertension and alcohol use disorder who presents to ED complaining of shaking, nausea and 'withdrawal symptoms'. Patient typically drinks 1
quart of vodka daily and has done so for many years.
Patient resides w/ friend in a 2nd floor apartment, ramp to enter from the garage and full flight of 12 or more steps to apartment. Patient is independent w/ ambulation, no device required. Patient is assisted w/ ADLs by friend. Patient stated his
friend will be his spring layer once certified. Patient has grab bar in bathroom. Denies SNF/HC hx. OP therapy in the past following heart attack.
Address, point of contact and insurance verified. Updated admissions w/ patient's new address
PCP: Rufus Ceja Jr.
Pharmacy: [facility]
Patient on ETOH withdraw protocol. Patient declined inpatient D&A treatment
Plan: Home, no needs
[2025-05-11] MEDS: CALAN EXTENDED RELEASE 180 MG PO (15:28)
[2025-05-11] MEDS: ATIVAN 1 MG PO (16:59)
[2025-05-11] MEDS: ZYLOPRIM 200 MG PO (18:10)
[2025-05-11] MEDS: LOVENOX 40 MG SC (18:11)
[2025-05-11] MEDS: SEROQUEL 100 MG PO (18:11)
[2025-05-11] MEDS: NEURONTIN 300 MG PO (21:00)
[2025-05-11] MEDS: ZESTRIL 10 MG PO (21:00)
[2025-05-12 03:00] VITALS: BP 131/62
[2025-05-12] MEDS: NORCO 5/325 1 TABLET PO ×4 (04:29→21:14)
--- NOTE | 2025-05-12 05:04 | W.PN.UPDATE ---
Update Note
Progress Note Update
RN reports patient demanding Ativan at present. Does not meet MSAS criteria for Ativan per protocol. Dry heaving, agitated, notes noted will give one dose Ativan 0.5mg POx1.
[2025-05-12] MEDS: SYNTHROID 25 MCG PO (05:10)
[2025-05-12] MEDS: ATIVAN 0.5 MG PO (05:10)
[2025-05-12 07:38] VITALS: BP 126/81
[2025-05-12] MEDS: NSS (PRESERVATIVE FREE) 10 ML IV (08:16)
[2025-05-12] MEDS: ORETIC 50 MG PO (08:16)
[2025-05-12] MEDS: PROTONIX IV 40 MG IV (08:16)
[2025-05-12] MEDS: THIAMINE INJECTION 200 MG IV ×2 (08:16→21:06)
[2025-05-12] MEDS: LUMINAL 64.8 MG PO ×3 (08:17→21:06)
[2025-05-12] MEDS: FOLVITE 1 MG PO (08:17)
[2025-05-12] MEDS: ASPIRIN 325 MG PO (08:17)
[2025-05-12] MEDS: CALAN EXTENDED RELEASE 180 MG PO (08:17)
[2025-05-12] MEDS: TOPROL XL 50 MG PO (08:17)
[2025-05-12] MEDS: LIPITOR 20 MG PO (08:17)
[2025-05-12] MEDS: MAGNESIUM OXIDE PO (08:20)
[2025-05-12 09:15] VITALS: BMI 30.7
[2025-05-12] MEDS: ATIVAN 1 MG PO ×3 (11:09→23:23)
[2025-05-12 11:30] VITALS: BP 152/89
--- NOTE | 2025-05-12 12:43 | W.PN.HOSP.TC ---
Today's Communication/Plan
-
Assessment / Plan
Assessment / Plan
General: No Apparent Distress, Comfortable and Conversant
HEENT: NormoCephalic, Moist mucous membranes, Atraumatic
Respiratory: Clear and Non Labored Respirations
Cardiac: S1/S2 and Regular Rhythm; No Rub or Gallop
GI: Soft, Non Tender, Non Distended and Normal Bowel Sounds
Musculoskeletal: No Edema, no deformity
: NO Quezada
Neuro: Awake, Alert, significant upper and lower extremity tremors at rest
Psych: Calm and Intact Judgment/Insight, anxious
Alcohol Withdrawal
Alcohol Use Disorder
- MSAS remains lower side, although patient visibly tremulous.
- Phenobarbital taper with questionable history of prior withdrawal seizures, titrated down to moderate dose today 05/12.
- IVF / electrolyte support.
- Follow for clinical improvement.
- Patient not interested in formal rehab at present.
Benign Hypertension
- Some initial discrepancies in stated meds / outpatient pharmacy record, reports taking verapamil and HCTZ - neither of which were on his pharmacy med list initially
- Continue metoprolol and lisinopril with holding parameters.
- Restarting home HCTZ and verapamil now that confirmed
ASCVD
- Stable. No chest pain or dyspnea.
- Continue metoprolol, ASA, statin, etc.
Hypothyroidism
- Continue current T4 replacement.
- TSH within normal limits
Anxiety / Depression / Insomnia
- Continue current psychotropic med regimen including gabapentin and quetiapine.
- PRN BZDs as noted above.
History of Gout
- Continue allopurinol.
History of Prostate Cancer
- Bladder scan protocol
Hypomagnesemia -repleted, will monitor
Diarrhea -likely alcohol use/withdrawal related. Imodium ordered
DVT Prophylaxis: Lovenox
Code Status: Full
Total time spent: 55 min
Anticipated Discharge: > 48 hours
Subjective/Interval History
-
Date of Service: May 12, 2025
Patient was seen and examined at bedside this morning. Still with significant tremors and discomfort due to alcohol withdrawal.
Objective Data
-
Vital Signs:
Vital Signs
Temp Pulse Resp BP Pulse Ox
98.1 F 65 18 152/89 99
05/12/25 11:30 05/12/25 11:30 05/12/25 11:30 05/12/25 11:30 05/12/25 11:30
I&O
05/11/25 05/12/25 05/13/25
06:59 06:59 06:59
Intake Total 2160 / 2160 1780 / 1780
Output Total 300 / 300
Balance 1860 / 1860 178 / 1780
Review of Systems
-
History Source: Patient
All other systems: Reviewed and negative
Neuro: Reports Tremors
Psych: Reports Anxious
Physical Exam
-
General: No Apparent Distress
[2025-05-12 15:20] VITALS: BP 157/92
[2025-05-12] MEDS: SEROQUEL 100 MG PO (17:21)
[2025-05-12] MEDS: LOVENOX 40 MG SC (17:21)
[2025-05-12] MEDS: ZYLOPRIM 200 MG PO (17:28)
[2025-05-12] MEDS: NEURONTIN 300 MG PO (21:06)
[2025-05-12] MEDS: ZESTRIL 10 MG PO (21:06)
[2025-05-12 23:00] VITALS: BP 136/69
[2025-05-13] MEDS: ATIVAN 1 MG PO (03:55)
[2025-05-13] MEDS: SYNTHROID 25 MCG PO (04:16)
[2025-05-13] MEDS: NORCO 5/325 1 TABLET PO ×2 (04:16→14:42)
[2025-05-13] MEDS: VALIUM INJECTION 5 MG IV ×2 (05:10→09:03)
[2025-05-13] MEDS: TUMS CHEWABLE TABLET 200 MG PO (05:15)
[2025-05-13 05:48] VITALS: BMI 30.4
[2025-05-13 07:14] VITALS: BP 172/98
[2025-05-13] MEDS: PROTONIX IV 40 MG IV (08:16)
[2025-05-13] MEDS: NSS (PRESERVATIVE FREE) 10 ML IV (08:16)
[2025-05-13] MEDS: ORETIC 50 MG PO (08:18)
[2025-05-13] MEDS: ASPIRIN 325 MG PO (08:18)
[2025-05-13] MEDS: CALAN EXTENDED RELEASE 180 MG PO (08:18)
[2025-05-13] MEDS: VITAMIN B1 100 MG PO ×2 (08:18→21:06)
[2025-05-13] MEDS: LUMINAL 64.8 MG PO ×3 (08:19→21:06)
[2025-05-13] MEDS: TOPROL XL 50 MG PO (08:20)
[2025-05-13] MEDS: MAGNESIUM OXIDE 400 MG PO (08:20)
[2025-05-13] MEDS: LIPITOR 20 MG PO (08:20)
[2025-05-13] MEDS: FOLVITE 1 MG PO (08:21)
[2025-05-13 10:18] LABS: Blood Urea Nitrogen 12 mg/dl (9-20); Calcium 9.0 mg/dl (8.4-10.2); Carbon Dioxide 21 mmol/L (22-30); Chloride 108 mmol/L (98-107); Estimated Creatinine Clearance 110 ml/min; Glucose 93 mg/dl (70-99); Magnesium 1.7 mg/dl (1.6-2.3); Potassium 4.1 mmol/L (3.5-5.1); Sodium 136 mmol/L (135-145); eGFR > 60.00
--- NOTE | 2025-05-13 11:57 | VATNOTE ---
Pt verbally agitated at time of assessment, per PCN, IV site is functional and I should not enter to further agitate the patient. Will attempt assessment at a later time.
[2025-05-13] MEDS: VALIUM INJECTION 2 MG IV ×3 (12:56→21:55)
--- NOTE | 2025-05-13 13:03 | W.PN.HOSP.TC ---
Today's Communication/Plan
-
Assessment / Plan
Assessment / Plan
General: No Apparent Distress, Comfortable and Conversant
HEENT: NormoCephalic, Moist mucous membranes, Atraumatic
Respiratory: Clear and Non Labored Respirations
Cardiac: S1/S2 and Regular Rhythm; No Rub or Gallop
GI: Soft, Non Tender, Non Distended and Normal Bowel Sounds
Musculoskeletal: No Edema, no deformity
: NO Quezada
Neuro: Awake, Alert, significant upper and lower extremity tremors at rest
Psych: Calm and Intact Judgment/Insight, anxious
Alcohol Withdrawal
Alcohol Use Disorder
- MSAS remains lower side, although patient visibly tremulous.
- Phenobarbital taper with questionable history of prior withdrawal seizures, titrated down to moderate dose 05/12, plan to decrease to low-dose tomorrow 05/14 for 2 more days.
- IVF / electrolyte support.
- Follow for clinical improvement.
- Patient not interested in formal rehab at present.
Benign Hypertension
- Some initial discrepancies in stated meds / outpatient pharmacy record, reports taking verapamil and HCTZ - neither of which were on his pharmacy med list initially
- Continue metoprolol and lisinopril with holding parameters.
- Restarted home HCTZ and verapamil now that confirmed
ASCVD
- Stable. No chest pain or dyspnea.
- Continue metoprolol, ASA, statin, etc.
Hypothyroidism
- Continue current T4 replacement.
- TSH within normal limits
Anxiety / Depression / Insomnia
- Continue current psychotropic med regimen including gabapentin and quetiapine.
- PRN BZDs as noted above.
History of Gout
- Continue allopurinol.
History of Prostate Cancer
- Bladder scan protocol
Hypomagnesemia -repleted, will monitor
Diarrhea -likely alcohol use/withdrawal related. Imodium ordered
DVT Prophylaxis: Lovenox
Code Status: Full
Total time spent: 52 min
Anticipated Discharge: > 48 hours
Subjective/Interval History
-
Date of Service: May 13, 2025
Patient was seen and examined at bedside this morning. Still having diarrhea intermittently. Withdrawal symptoms still clearly present but improving.
Objective Data
-
Labs:
Laboratory Results
05/13/25
08:35
Sodium 136
Potassium 4.1
Chloride 108 H
Carbon Dioxide 21 L
BUN 12
Creatinine 0.7
Glucose 93
Calcium 9.0
Vital Signs:
Vital Signs
Temp Pulse Resp BP Pulse Ox
97.6 F 64 20 172/98 98
05/13/25 07:14 05/13/25 07:14 05/13/25 07:14 05/13/25 07:14 05/13/25 07:14
I&O
05/12/25 05/13/25 05/14/25
06:59 06:59 06:59
Intake Total 1779 / 0 1300 / 1300
Balance 178 / 1779 1300 / 1300
Review of Systems
-
History Source: Patient
All other systems: Reviewed and negative
Abdomen/GI: Reports Diarrhea
Neuro: Reports Tremors
Psych: Reports Anxious
Physical Exam
-
General: No Apparent Distress
[2025-05-13] MEDS: PREPARATION H MAX STRENGTH PAIN RELIEF CREAM 1 APPLIC RECTAL (13:20)
--- NOTE | 2025-05-13 14:29 | CM ---
Chart reviewed. Care ongoing
Cont ETOH withdrawal protocol
Plan: Home, no needs
[2025-05-13 15:00] VITALS: BP 141/95
[2025-05-13] MEDS: ZYLOPRIM 200 MG PO (18:17)
[2025-05-13] MEDS: LOVENOX SC (18:17)
[2025-05-13] MEDS: ZESTRIL 10 MG PO (21:06)
[2025-05-13] MEDS: NEURONTIN 300 MG PO (21:06)
[2025-05-13] MEDS: SEROQUEL 100 MG PO (21:12)
[2025-05-13 23:03] VITALS: BP 127/82
[2025-05-14] MEDS: VALIUM INJECTION 2 MG IV ×5 (01:26→22:31)
[2025-05-14] MEDS: NORCO 5/325 1 TABLET PO ×4 (01:51→18:35)
[2025-05-14 06:00] VITALS: BMI 29.4
[2025-05-14] MEDS: SYNTHROID 25 MCG PO (06:33)
[2025-05-14 07:20] VITALS: BP 103/69
[2025-05-14] MEDS: CALAN EXTENDED RELEASE 180 MG PO (08:51)
[2025-05-14] MEDS: ASPIRIN 325 MG PO (08:51)
[2025-05-14] MEDS: ORETIC 50 MG PO (08:51)
[2025-05-14] MEDS: LIPITOR 20 MG PO (08:52)
[2025-05-14] MEDS: LUMINAL 32.4 MG PO ×3 (08:52→21:04)
[2025-05-14] MEDS: PROTONIX 40 MG PO (08:52)
[2025-05-14] MEDS: VITAMIN B1 100 MG PO ×2 (08:52→20:08)
[2025-05-14] MEDS: FOLVITE 1 MG PO (08:52)
[2025-05-14] MEDS: MAGNESIUM OXIDE 400 MG PO (08:53)
[2025-05-14] MEDS: TOPROL XL 50 MG PO (08:53)
--- NOTE | 2025-05-14 11:15 | W.PN.HOSP.TC ---
Today's Communication/Plan
-
Assessment / Plan
Assessment / Plan
General: No Apparent Distress, Comfortable and Conversant
HEENT: NormoCephalic, Moist mucous membranes, Atraumatic
Respiratory: Clear and Non Labored Respirations
Cardiac: S1/S2 and Regular Rhythm; No Rub or Gallop
GI: Soft, Non Tender, Non Distended and Normal Bowel Sounds
Musculoskeletal: No Edema, no deformity
: NO Quezada
Neuro: Awake, Alert, significant upper and lower extremity tremors at rest
Psych: Calm and Intact Judgment/Insight, anxious
Alcohol Withdrawal
Alcohol Use Disorder
- MSAS remains lower side, although patient visibly tremulous.
- Phenobarbital taper with questionable history of prior withdrawal seizures, now titrated down to low dose 05/14 with plan to complete taper after last dose tomorrow 05/15
- IVF / electrolyte support.
- Anticipate discharge tomorrow 05/15 after completion of phenobarbital taper
- Patient planning [facility] for [facility]
Benign Hypertension
- Continue metoprolol and lisinopril with holding parameters.
- Restarted home HCTZ and verapamil now that confirmed
ASCVD
- Stable. No chest pain or dyspnea.
- Continue metoprolol, ASA, statin, etc.
Hypothyroidism
- Continue current T4 replacement.
- TSH within normal limits
Anxiety / Depression / Insomnia
- Continue current psychotropic med regimen including gabapentin and quetiapine.
- PRN BZDs as noted above.
History of Gout
- Continue allopurinol.
History of Prostate Cancer
- Bladder scan protocol
Hypomagnesemia -repleted, will monitor
Diarrhea -likely alcohol use/withdrawal related. Imodium ordered
DVT Prophylaxis: Lovenox
Code Status: Full
Total time spent: 54 min
Anticipated Discharge: 24 - 48 hours
Subjective/Interval History
-
Date of Service: May 14, 2025
Patient was seen and examined at bedside this morning. No acute distress. Remains on phenobarbital taper.
Objective Data
-
Labs:
Laboratory Results
05/14/25
09:07
Sodium Pending
Potassium Pending
Chloride Pending
Carbon Dioxide Pending
BUN Pending
Creatinine Pending
Glucose Pending
Calcium Pending
Vital Signs:
Vital Signs
Temp Pulse Resp BP Pulse Ox
97.7 F 89 20 103/69 98
05/14/25 07:20 05/14/25 07:20 05/14/25 07:20 05/14/25 07:20 05/14/25 07:20
I&O
05/13/25 05/14/25 05/15/25
06:59 06:59 06:59
Intake Total 1300 / 1300 1680 / 1680
Balance 1300 / 1300 1680 / 1680
Review of Systems
-
History Source: Patient
All other systems: Reviewed and negative
Neuro: Reports Tremors
Psych: Reports Anxious
Physical Exam
-
General: No Apparent Distress
[2025-05-14 11:24] LABS: Blood Urea Nitrogen 10 mg/dl (9-20); Calcium 9.4 mg/dl (8.4-10.2); Carbon Dioxide 20 mmol/L (22-30); Chloride 105 mmol/L (98-107); Estimated Creatinine Clearance 98 ml/min; Glucose 100 mg/dl (70-99); Magnesium 1.7 mg/dl (1.6-2.3); Potassium 4.0 mmol/L (3.5-5.1); Sodium 136 mmol/L (135-145); eGFR > 60.00
--- NOTE | 2025-05-14 11:59 | CM ---
CM reviewed chart, reviewed with Hospitalist, plan for d/c tomorrow after last dose of phenobarb. Patient seen bedside, reports he has met with [facility] and is set up with outpatient resources and appointment for Sublocade shot. Patient inquiring if
bath chair is covered by insurance, will reach out to local DME agencies. Patient reports he will Uber home upon discharge. IMM verbally reviewed, provided with copy, placed in chart. CM will continue to follow for all discharge planning needs.
Plan; home tomorrow with resources provided by [facility]
[2025-05-14 15:30] VITALS: BP 156/92
[2025-05-14] MEDS: SEROQUEL PO (17:52)
[2025-05-14] MEDS: LOVENOX SC (17:52)
[2025-05-14] MEDS: ZYLOPRIM 200 MG PO (17:52)
[2025-05-14] MEDS: ZESTRIL 10 MG PO (21:04)
[2025-05-14] MEDS: SEROQUEL 100 MG PO (21:04)
[2025-05-14] MEDS: NEURONTIN 300 MG PO (21:08)
[2025-05-14 23:00] VITALS: BP 164/96
[2025-05-15] MEDS: NORCO 5/325 1 TABLET PO ×2 (03:32→07:48)
[2025-05-15] MEDS: VALIUM INJECTION 2 MG IV ×2 (04:17→09:22)
[2025-05-15 05:55] VITALS: BMI 29.4
[2025-05-15] MEDS: SYNTHROID 25 MCG PO (05:58)
[2025-05-15 07:17] VITALS: BP 149/111
[2025-05-15] MEDS: ASPIRIN 325 MG PO (07:49)
[2025-05-15] MEDS: PROTONIX 40 MG PO (07:49)
[2025-05-15] MEDS: FOLVITE 1 MG PO (07:49)
[2025-05-15] MEDS: VITAMIN B1 100 MG PO (07:49)
[2025-05-15] MEDS: ORETIC 50 MG PO (07:49)
[2025-05-15] MEDS: MAGNESIUM OXIDE 400 MG PO (07:50)
[2025-05-15] MEDS: LIPITOR 20 MG PO (07:50)
[2025-05-15] MEDS: LUMINAL 32.4 MG PO ×2 (07:50→12:35)
[2025-05-15] MEDS: CALAN EXTENDED RELEASE 180 MG PO (07:55)
[2025-05-15] MEDS: TOPROL XL 50 MG PO (07:55)
[2025-05-15 09:47] LABS: Hematocrit 40.8 % (39.0-52.0); Hemoglobin 12.9 g/dL (13.0-18.0); Mean Corp Hgb Conc. 31.6 g/dL (33.0-37.0); Mean Corpuscular Volume 68.0 fL (80.0-94.0); Nucleated Red Blood Cells % 0 % (-); Platelet Count 229 10^3/uL (130-400); Red Cell Dist. Width 18.3 % (11.5-14.5)
[2025-05-15 10:01] LABS: Blood Urea Nitrogen 15 mg/dl (9-20); Calcium 10.1 mg/dl (8.4-10.2); Carbon Dioxide 18 mmol/L (22-30); Chloride 106 mmol/L (98-107); Estimated Creatinine Clearance 86 ml/min; Glucose 104 mg/dl (70-99); Magnesium 1.8 mg/dl (1.6-2.3); Potassium 4.8 mmol/L (3.5-5.1); Sodium 136 mmol/L (135-145); eGFR > 60.00
--- NOTE | 2025-05-15 11:17 | W.DCSUMMARY ---
Discharge Summary
Discharge Data
Date of Admission: 05/09/25
Date of Discharge: 05/15/25
Total time spent discharging patient (in min): 58
-
Pending Results: No
Hospital Course
Mr. Maravilla is a 69-year-old male with a medical history of alcohol dependence, hypertension, CAD, hemochromatosis, prostate cancer, and hypothyroidism who presented with symptoms of alcohol withdrawal including tremors and nausea. He reports
drinking 1 quart of vodka daily for many years. He says he is not able to sleep without drinking alcohol. He was admitted for treatment of his acute alcohol withdrawal.
He completed a phenobarbital taper with additional IV benzodiazepines as needed. His withdrawal symptoms improved. He still has a significant baseline tremor. He has been given oral thiamine and folate supplements during this hospitalization
which will be continued at discharge. He was evaluated here by the case management team and arrangements have been made for outpatient follow-up with [facility] for assistance with alcohol cessation and support. We extensively discussed the importance
of discontinuing all alcohol use. He will need close follow-up with a primary care physician and is currently in the process of establishing care with a new physician as his previous PCP is retiring. If he continues to have resting tremors despite
prolonged sobriety he may warrant evaluation by a neurologist. He should also discuss his reported severe insomnia with his PCP in order to pursue further evaluation and management. At time of hospital discharge he was medically stable.
General: No Apparent Distress, Comfortable and Conversant
HEENT: NormoCephalic, Moist mucous membranes, Atraumatic
Respiratory: Clear and Non Labored Respirations
Cardiac: S1/S2 and Regular Rhythm; No Rub or Gallop
GI: Soft, Non Tender, Non Distended and Normal Bowel Sounds
Musculoskeletal: No Edema, no deformity
: NO Quezada
Neuro: Awake, Alert, mild upper and lower extremity tremors at rest
Psych: Cooperative, anxious
Discharge Plan
-
Patient Disposition: Home (Routine Discharge)
Discharge Diagnosis/Procedures: Acute alcohol withdrawal
Activity Restrictions/Additional Instructions:
Mr. Maravilla is a 69-year-old male with a medical history of alcohol dependence, hypertension, CAD, hemochromatosis, prostate cancer, and hypothyroidism who presented with symptoms of alcohol withdrawal including tremors and nausea. He reports
drinking 1 quart of vodka daily for many years. He says he is not able to sleep without drinking alcohol. He was admitted for treatment of his acute alcohol withdrawal.
He completed a phenobarbital taper with additional IV benzodiazepines as needed. His withdrawal symptoms improved. He still has a significant baseline tremor. He has been given oral thiamine and folate supplements during this hospitalization
which will be continued at discharge. He was evaluated here by the case management team and arrangements have been made for outpatient follow-up with [facility] for assistance with alcohol cessation and support. He will need close follow-up with a
primary care physician and is currently in the process of establishing care with a new physician as his previous PCP is retiring. If he continues to have resting tremors despite prolonged sobriety he may warrant evaluation by a neurologist. He
should also discuss his reported severe insomnia with his PCP in order to pursue further evaluation and management. At time of hospital discharge he was medically stable.
Referrals:
Rufus Ceja Jr., DO [Family Provider, [facility]]
Prescriptions:
Continued
atorvastatin [Lipitor] 20 mg Tablet
20 mg PO DAILY
allopurinol 100 mg Tablet
200 mg PO QPM
levothyroxine [Synthroid] 25 mcg Tablet
25 mcg PO DAILY
lisinopril 10 mg Tablet
10 mg PO HS
verapamil 180 mg Tablet Extended Release
180 mg PO DAILY
Patient Comments:
patient bryce has this as stopped on 11/02/24 but patient stated he was told to restart this with his toprol xl, both medication has not been filled since 07/2024; (DTK 05/15/2025 - pt has been given this medication throughout this
hospitalization with moderately-controlled BP, may need to increase dose, however this is in the setting of ETOH w/d which may be the etiology of his increased BP)
folic acid 800 mcg Tablet
0.8 mg PO DAILY
cholecalciferol (vitamin D3) [Vitamin D3] 25 mcg (1,000 unit) Tablet
25 mcg PO DAILY
magnesium oxide 400 mg magnesium Tablet
400 mg PO DAILY
thiamine mononitrate (vit B1) 100 mg Tablet
100 mg PO BID Qty: 60 0RF
aspirin 325 mg Tablet
325 mg PO DAILY Qty: 0 0RF
hydrochlorothiazide 50 mg Tablet
50 mg PO DAILY Qty: 0 0RF
quetiapine [Seroquel] 50 mg Tablet
100 mg PO QPM Qty: 0 0RF
metoprolol succinate 50 mg tablet extended release 24 hr
50 mg PO DAILY
gabapentin 300 mg capsule
300 mg PO HS
Discharge Orders:
Discharge Patient (As Directed); Ordered 05/15/25
Ordered By: Louie Vanegas
Discharge Date and Time
Print Language: KOREAN
--- NOTE | 2025-05-15 12:44 | CM ---
Chart reviewed. Patient will d/c home today
[facility] following OP. Provided resources
Patient will Uber home
No CM needs at this time
Plan: Home with resources provided by [facility]
== END 2025-05-15 14:18 | disposition home or self-care (01) | DRG 897 ==
LOC: 4 WEST ACU 23:51
PROVIDERS: Hospitalist; Registered Nurse; ADMITTING PHYSICIAN Hospitalist; ATTENDING PHYSICIAN Internal Medicine; EMERGENCY PHYSICIAN Student in an Organized Health Care Education/Training Program; FAMILY PHYSICIAN Family Medicine
DX: F10.239 Alcohol dependence with withdrawal, unspecified (principal); I10 Essential (primary) hypertension; R25.1 Tremor, unspecified; F41.9 Anxiety disorder, unspecified; F32.A Depression, unspecified; G47.00 Insomnia, unspecified; E03.9 Hypothyroidism, unspecified; M10.9 Gout, unspecified; I25.10 Atherosclerotic heart disease of native coronary artery without angina pectoris; E83.42 Hypomagnesemia; R19.7 Diarrhea, unspecified; Z79.890 Hormone replacement therapy; Z79.82 Long term (current) use of aspirin; Z85.46 Personal history of malignant neoplasm of prostate; Z92.3 Personal history of irradiation; Z95.5 Presence of coronary angioplasty implant and graft; Z90.49 Acquired absence of other specified parts of digestive tract; Z90.79 Acquired absence of other genital organ(s); Z87.891 Personal history of nicotine dependence
CPT/HCPCS: 80048; 80053; 80076; 80306; 80307; 81003; 81015; 82077; 82962; 83036; 83735; 84100; 84443; 85025; 85027; 96361; 96374; 96376; 99285